=== PATIENT | female | born 2000 | race Caucasian/White ===

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

== ENCOUNTER 2021-01-09 10:33 | Outpatient (CLI) | payer MEDICAID, SELFPAY ==
[2021-01-09 20:20] LABS: Basophils Percent Auto 0.5 % (0.2-1.2); Eosinophils Percent Auto 0.7 % (0-4.4); Hematocrit 40.3 % (37.0-47.0); Hemoglobin 13.4 g/dL (12.0-15.0); Immature Platelet Fraction Pct 14.3 % (0.9-11.2); Lymphocytes Absolute Auto 2.04 K/mm3 (0.9-3.2); Lymphocytes Percent Auto 46.4 % (18.3-44.2); Mean Corpuscular HGB Conc 33.3 g/dl (32-36); Mean Corpuscular Hemoglobin 32.2 pg (26-34); Mean Corpuscular Volume 96.9 fl (80-100); Mean Platelet Volume 13.4 fl (7.4-10.4); Monocytes Absolute Auto 0.3 K/mm3 (0.1-0.6); Monocytes Percent Auto 6.1 % (2.6-8.5); Neutrophils Percent Auto 46.3 % (45.5-73.1); Platelet Count Result 130 k/mm3 (150-375); Red Blood Count 4.16 M/mm3 (4.2-5.4); Red Cell Distribution Width 13.5 % (11.5-14.5); White Blood Count 4.4 K/mm3 (4.5-10.0)
[2021-01-09 21:08] LABS: Alanine Aminotransferase 13 U/L (4-35); Albumin Level 5.6 g/dL (3.7-5.6); Alkaline Phosphatase 316 U/L (45-116); Aspartate Amino Transferase 32 U/L (14-36); Bilirubin,Total 0.3 mg/dL (0.2-1.3); Creatine Kinase 74 U/L (30-135)
== END 2021-01-09 10:34 | disposition home or self-care (01) ==
PROVIDERS: PCP Pediatrics; Visit Provider Pediatrics
DX: R74.01 Elevation of levels of liver transaminase levels (principal); R74.02 Elevation of levels of lactic acid dehydrogenase [LDH]
CPT/HCPCS: 36415; 80076; 82550; 85025; 85055; 85610

== ENCOUNTER → 2021-05-23 09:14 | Outpatient (CLI) | payer MEDICAID, SELFPAY ==
--- NOTE | ~2021-05-23 | US_ITS ---
EXAMINATION: US right upper quadrant DATE: 05/23/2021 09:42 INDICATION: Abnormal liver enzymes TECHNIQUE: Multiple grayscale and Doppler ultrasound images of the abdomen were obtained. COMPARISON: None available FINDINGS: The pancreas is poorly visualized due to bowel gas. The liver is normal with normal echogen icity and echotexture. No surface nodularity. Normal hepatopetal flow in the main portal vein. The ga llbladder is normal with no abnormal wall thickening, pericholecystic fluid or stones. The normal com mon bile duct measures 3 mm. There was no sonographic Lopes sign. IMPRESSION: 1. Normal sonographic study of the gallbladder. Reviewed, dictated and finalized at location A. TANNER
== END ==
PROVIDERS: PCP Nurse Practitioner; Visit Provider Pediatrics
DX: R74.01 Elevation of levels of liver transaminase levels (principal)
CPT/HCPCS: 76705

== ENCOUNTER 2021-07-15 19:30 | Emergency (ER) | payer MEDICAID, SELFPAY ==
[2021-07-15 19:37] VITALS: BP 105/50; PULSE 58; RESP 16; TEMP 35.7; O2SAT 98
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
--- NOTE | 2021-07-15 20:13 | PC.NURSE ---
Pts father assisted in catheterization through [facility]. 250mls urine collected.
[2021-07-15 20:31] LABS: Add Urine Microscopic? YES; Appearance Urine Cloudy (Clear); Bacteria Urine Trace /hpf; Bilirubin Urine Negative (Negative); Blood Urine Negative (Negative); Color Urine Yellow (Yellow); Glucose Urine UA Negative (Negative); Ketones Urine Negative (Negative); Leukocyte Esterase Ur 3+ LEU/UL (Negative); Nitrate Urine Negative (Negative); Protein Urine Negative (Negative); Specific Grav Ur 1.009 (1.001-1.035); Urobilinogen Urine Negative mg/dL (<2.0)
[2021-07-15] MEDS: CEPHALEXIN 500 MG CAPSULE PO (21:01)
== END 2021-07-15 21:12 | disposition home or self-care (01) ==
PROVIDERS: Emergency Provider Nurse Practitioner Family; PCP Nurse Practitioner
DX: N30.00 Acute cystitis without hematuria (principal); G80.9 Cerebral palsy, unspecified; N31.9 Neuromuscular dysfunction of bladder, unspecified; N18.4 Chronic kidney disease, stage 4 (severe); G40.909 Epilepsy, unspecified, not intractable, without status epilepticus; Z93.1 Gastrostomy status; Z93.6 Other artificial openings of urinary tract status; Z87.820 Personal history of traumatic brain injury
CPT/HCPCS: 81001; 99283; A9270

== ENCOUNTER 2021-08-24 12:20 | Outpatient (CLI) | payer MEDICAID, SELFPAY ==
[2021-08-24 19:15] LABS: Alanine Aminotransferase 146 U/L (6-35); Albumin Level 3.8 g/dL (3.7-5.6); Alkaline Phosphatase 114 U/L (45-116); Aspartate Amino Transferase 89 U/L (14-36); Bilirubin,Total 0.1 mg/dL (0.2-1.3)
== END 2021-08-24 12:21 | disposition home or self-care (01) ==
PROVIDERS: PCP Nurse Practitioner; Visit Provider Pediatrics
DX: Z87.440 Personal history of urinary (tract) infections (principal)
CPT/HCPCS: 36415; 80076; 87077; 87086; 87088; 87186

== ENCOUNTER 2022-01-15 15:01 | Outpatient (CLI) | payer MEDICAID, SELFPAY ==
[2022-01-15 19:04] LABS: Alanine Aminotransferase 77 U/L (6-35); Albumin Level 4.1 g/dL (3.5-5.1); Alkaline Phosphatase 124 U/L (38-126); Aspartate Amino Transferase 89 U/L (14-36); Bilirubin,Total 0.2 mg/dL (0.2-1.3)
== END 2022-01-15 15:02 | disposition home or self-care (01) ==
LOC: ANHASCLAB 15:02
PROVIDERS: PCP Nurse Practitioner; Visit Provider Pediatrics
DX: R74.8 Abnormal levels of other serum enzymes (principal)
CPT/HCPCS: 36415; 80076

== ENCOUNTER 2022-04-26 16:15 | Outpatient (CLI) | payer MEDICAID, SELFPAY ==
[2022-04-26 19:50] LABS: Basophils Percent Auto 0.4 % (0.2-1.2); Eosinophils Percent Auto 0.4 % (0-4.4); Hematocrit 36.1 % (37.0-47.0); Hemoglobin 12.3 g/dL (12.0-15.0); Lymphocytes Absolute Auto 1.54 K/mm3 (0.9-3.2); Lymphocytes Percent Auto 54.2 % (18.3-44.2); Mean Corpuscular HGB Conc 34.1 g/dl (32-36); Mean Corpuscular Hemoglobin 34.5 pg (26-34); Mean Corpuscular Volume 101.1 fl (80-100); Mean Platelet Volume 12.3 fl (7.4-10.4); Monocytes Absolute Auto 0.2 K/mm3 (0.1-0.6); Monocytes Percent Auto 6.3 % (2.6-8.5); Neutrophils Absolute Auto 1.1 K/mm3 (1.3-6.7); Neutrophils Percent Auto 38.7 % (45.5-73.1); Platelet Count Result 116 k/mm3 (150-375); Red Blood Count 3.57 M/mm3 (4.2-5.4); Red Cell Distribution Width 14.5 % (11.5-14.5); White Blood Count 2.8 K/mm3 (4.5-10.0)
[2022-04-26 20:34] LABS: Alanine Aminotransferase 71 U/L (6-35); Albumin Level 4.3 g/dL (3.5-5.1); Alkaline Phosphatase 114 U/L (38-126); Aspartate Amino Transferase 58 U/L (14-36); Bilirubin,Total 0.2 mg/dL (0.2-1.3)
== END 2022-04-26 16:16 | disposition home or self-care (01) ==
LOC: ANHGOSHLAB 16:17
PROVIDERS: PCP Nurse Practitioner; Visit Provider Pediatrics
DX: Q44.1 Other congenital malformations of gallbladder (principal)
CPT/HCPCS: 36415; 80076; 85025

== ENCOUNTER 2022-10-03 13:49 | Outpatient (CLI) | payer MEDICAID, SELFPAY ==
[2022-10-03 18:38] LABS: Anion Gap 5 mmol/L (8-16); Blood Urea Nitrogen 14 mg/dL (7-17); Calcium 8.9 mg/dL (8.4-10.2); Carbon Dioxide 33 mmol/L (22-30); Chloride 105 mmol/L (98-107); Estimated Glomerular Filt Rate > 60; Glucose 89 mg/dL (65-110); Phosphorus 4.7 mg/dL (2.5-4.5); Potassium 4.2 mmol/L (3.4-5.0); Sodium 143 mmol/L (137-145)
[2022-10-08 12:06] LABS: Reference Lab Test Result 0.91
== END 2022-10-03 13:50 | disposition home or self-care (01) ==
PROVIDERS: PCP Nurse Practitioner; Visit Provider Pediatrics Pediatric Nephrology
DX: N31.9 Neuromuscular dysfunction of bladder, unspecified (principal); R82.994 Hypercalciuria
CPT/HCPCS: 36415; 80069

== ENCOUNTER 2023-07-25 14:49 | Outpatient (CLI) | payer MEDICAID, SELFPAY ==
[2023-07-25 19:04] LABS: Basophils Percent Auto 0.3 % (0.2-1.2); Eosinophils Absolute Auto 0.1 K/mm3 (0-0.3); Eosinophils Percent Auto 1.5 % (0-4.4); Hematocrit 34.7 % (37.0-47.0); Hemoglobin 11.4 g/dL (12.0-15.0); Lymphocytes Absolute Auto 1.53 K/mm3 (0.9-3.2); Lymphocytes Percent Auto 46.5 % (18.3-44.2); Mean Corpuscular HGB Conc 32.9 g/dl (32-36); Mean Corpuscular Hemoglobin 32.4 pg (26-34); Mean Corpuscular Volume 98.6 fl (80-100); Mean Platelet Volume 12.1 fl (7.4-10.4); Monocytes Absolute Auto 0.3 K/mm3 (0.1-0.6); Monocytes Percent Auto 9.1 % (2.6-8.5); Neutrophils Absolute Auto 1.4 K/mm3 (1.3-6.7); Neutrophils Percent Auto 42.6 % (45.5-73.1); Platelet Count Result 178 k/mm3 (150-375); Red Blood Count 3.52 M/mm3 (4.2-5.4); Red Cell Distribution Width 17.5 % (11.5-14.5); White Blood Count 3.3 K/mm3 (4.5-10.0)
[2023-07-25 19:21] LABS: Alanine Aminotransferase 88 U/L (6-35); Albumin Level 4.2 g/dL (3.5-5.1); Alkaline Phosphatase 73 U/L (38-126); Anion Gap 6 mmol/L (4-12); Aspartate Amino Transferase 51 U/L (14-36); Bilirubin,Total 0.3 mg/dL (0.2-1.3); Blood Urea Nitrogen 18 mg/dL (7-17); Carbon Dioxide 30 mmol/L (22-30); Chloride 102 mmol/L (98-107); Estimated Glomerular Filt Rate > 60; Glucose 89 mg/dL (65-110); Potassium 3.9 mmol/L (3.4-5.0); Sodium 138 mmol/L (137-145)
== END 2023-07-25 14:50 | disposition home or self-care (01) ==
LOC: ANHASCLAB 14:54 → ANHGOSHLAB 15:24
PROVIDERS: PCP Nurse Practitioner; Visit Provider Pediatrics
DX: R68.89 Other general symptoms and signs (principal)
CPT/HCPCS: 36415; 80053; 85025

== ENCOUNTER 2025-02-17 10:19 | Outpatient (CLI) | payer MEDICAID, SELFPAY ==
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
--- OUTSIDE RECORDS SUMMARY | 2025-02-17 11:35 | XMS_ITS | Encounter Summary ---
Author Organization [facility] Health Address [address] [place] [address] Care Team Providers Care Ingot Stripper Name Role Phone Gina Alvarado MD Unavailable [phone] Michelle Nolan MD Unavailable Unavailable Michelle Nolan MD Unavailable Unavailable David Olson Unavailable Ann Valderrama DO Unavailable [phone] Juanita Mojica Primary Care Provider [phone] Encounter Details Date Type Department Care Team (Latest Contact Info) Description 02/17/2025 Travel Social History Tobacco Use Types Packs/Day Years [...] and heating? Not hard at all 08/12/2024 [facility] Occupat ional Health - Occupational Stress [...] place to sleep or slept in a senior care (including now)? No 08/04/2023 Housing Stability Vital Sign Answer Ryan e Recorded In the last 12 months, was t here a time when you were not able to pay the mortgage or rent on time? No 08/12/2024 In the past 12 months, how m any times have you moved where you were living? 0 08/12/2024 At any time in the past 12 m [facility], were you homeless or living in a senior care (including now)? No 08/12/2024 Comments No Sex and Gender Information Value Date Recorded Sex Assigned at Female 06/24/2023 7:12 PM CDT Legal Sex Female 5:41 AM TELEPHONE OPERATOR RECEPTIONIST Gender Identity Female 06/24/2023 7:12 PM CDT Sexual Orientation Not on file documented as of this encounter Functional Status * Is person deaf or have serious hearing difficulty? Answer Date of Assessment Author No 08/09/2024 6:38 AM CDT Dirk, Process Support User * Is person blind [...] Process Support User documented in this encounter Plan of Treatment Upcoming Encounters Date Type Department Care Team (Late st Contact Info) Description 02/25/2025 11:45 AM TELEPHONE OPERATOR RECEPTIONIST Appointment [facility] Pediatrics - [address] [place] [address] Gina Alvarado MD [address] [place] [id number] 01/24/2026 9:30 AM CDT Appointment [facility] Pediatrics - regional rehabilitation director [address] [place] [id number] Alie Gastelum MD [address] 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 07/29/2024 C Diff Hx Comment:01/07/23 05/21/2023 05/21/2023 documented as of this encounter Care Teams Ingot Stripper Relationship Specialty Start Date End Date Juanita Mojica [address] [place] [address] PCP - General Pediatrics 07/06/24 Gina Alvarado MD [address] [place] [id number] Pediatric Gastroenterology 04/13/19 Michelle Nolan MD [address] [place] [id number] Orthopedic Surgery 05/26/19 Michelle Nolan MD [address] [place] [id number] Orthopedic Surgery 02/03/20 David Olson PA [facility] [place] [phone] Physician Weight Loss Consultant Urology 05/07/24 Ann Valderrama DO [address] [place] [phone] Physician Hospice and Palliative Care 05/27/24 documented as of this encounter
--- OUTSIDE RECORDS SUMMARY | 2025-02-17 11:35 | XMS_ITS | Encounter Summary ---
Author Organization [facility] Address [address] [facility] [place] [address] Care Team Providers Care Canal Tender Name Role Phone Gina Alvarado MD Unavailable [phone] Michelle Nolan MD Unavailable Unavailable Michelle Nolan MD Unavailable Unavailable Jennifer Pelaez APRN-[facility] Primary Care Provi rahul David Olson Unavailable Ann Valderrama DO Unavailable [phone] Juanita Mojica Primary Care Provider Reason for Visit * Reason Onset Date Comments Durable Medical Equipment 06/26/2024 Insurance Issue/question 06/26/2024 Encounter Details Date Type Department Care Team (Late st Contact Info) Description 06/26/2024 [facility]phone [facility] Pulmonology [address] [place] [address] Val Santos MD [address] [place] [address] Durable Medical Equipment; Insurance Issue/question Social History Tobacco Use Types Packs/Day Years Used Date Smoking Tobacco: Never Passive Smoke Exposure: Never Smokeless Tobacco: Never Alcohol Use Standard Drinks/Week Comments No 0 (1 standard drink = 0.6 oz pur e alcohol) AUDIT-C Answer Date Recorded Q1: How often do you have a drink containing alcohol? Never 08/04/2023 Q2: How many drinks containi ng alcohol do you have on a typical day when you are drinking? Patient does not drink Q3: How often do you have si x or more drinks on one occasion? Never 08/04/2023 Overall Financial Resource Strain (CARDIA) Answe r Date Recorded How hard is it for you to pa y for the very basics like food, housing, medical care, and heating? Not hard at all 08/04/2023 [facility] of Occupat ional Health - Occupational Stress Questionnaire Answer Date Recorded Do you feel stress - tense, restless, nervous, or anxious, or unable to sleep at night because your mind is troubled all the time - these days? Not at all 08/04/2023 Hunger Vital Sign Answer Date Recorded Within the past 12 months, y ou worried that your food would run out before you got the money to buy more. Never true 08/04/19 24 Within the past 12 months, t he food you bought just didn't last and you didn't have money to get more. Never true 08/04/2023 PRAPARE - Transportation Answer Date Re corded In the past 12 months, has l ack of transportation kept you from medical appointments or from getting medications? No 07/08 In the past 12 months, has l ack of transportation kept you from meetings, work, or from getting things needed for daily living? No 08/04/2023 Housing Stability Vital Sign Answer [...] place to sleep or slept in a half-way (including now)? No 08/04/2023 Comments No Sex and Gender Information Value Date Recorded Sex Assigned at Female 06/24/2023 7:12 PM CDT Legal Sex Female 5:41 AM PHYSICAL SECURITY SPECIALIST Gender Identity Female 06/24/2023 7:12 PM CDT Sexual Orientation Not on file documented as of this encounter Functional Status * Is person deaf or have serious hearing difficulty? Answer Date of Assessment Author Yes 08/04/2023 11:53 AM CDT Kelsie Thomas RN * Is person blind or have serious difficulty seeing? Answer Date of Assessment Author Yes 08/04/2023 11:53 AM CDT Kelsie Thomas RN * Does person have serious difficulty walking/climbing stairs? Answer Date of Assessment Author Yes 08/04/2023 11:53 AM CDT Kelsie Thomas RN * Does person have difficulty dressing/bathing? Answer Date of Assessment Author Yes 08/04/2023 11:53 AM CDT Kelsie Thomas RN * Does person have difficulty doing errands alone? Answer Date of Assessment Author Yes 08/04/2023 11:53 AM JUSTINET Kelsie Thomas RN documented as of this encounter Mental Status * Does person have difficulty concentrating/remembering/making decisions? Answer Entry Date Author Yes 08/04/2023 11:53 AM Kelsie Vazquez RN documented in this encounter Miscellaneous Notes * Telephone Encounter - Elizabeth Whitney RN - 06/26/2024 4:25 PM CDT [facility] called to report that last note sent to support recert for oxygen is inadequate, only describes occassional transient desaturations. Suggests sending a letter from physician to support. Will notify MD. documented in this encounter Plan of Treatment Upcoming Encounters Date Type Department Care Team (Late st Contact Info) Description 02/25/2025 11:45 AM PHYSICAL SECURITY SPECIALIST Appointment [facility] Pediatrics - [place] [address] [place] [address] Gina Alvarado MD [address] [place] [address] 01/24/2026 9:30 AM CDT Appointment [facility] Pediatrics - hand fur cleaner [address] [facility] 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 05/30/2022 05/30/2022 MRSA 10/08/2022 07/29/2024 C Diff Hx Comment:01/07/23 05/21/2023 05/21/2023 CDIFF Under Investigation 08/09/2024 08/09/2024 8:35 AM CDT documented as of this encounter Care Teams Canal Tender Relationship Specialty Start Date End Date Jennifer Pelaez, HOME HEALTH CNA-TUNNEL FORM PLACING SUPERVISOR [address] [place] [address] PCP - General 05/17/21 07/05/24 Juanita Mojica [address] [place] [address] PCP - General Pediatrics 07/06/24 Gina Alvarado MD [address] [place] [id number] Pediatric Gastroenterology 04/13/19 Michelle Nolan MD [address] [place] [address] Orthopedic Surgery 05/26/19 Michelle Nolan MD [address] [place] [address] Orthopedic Surgery 02/03/20 David Olson PA [address] [place] [phone] Physician School Cafeteria Cook Head Urology 05/07/24 Ann Valderrama DO [address] [place] [phone] Physician Hospice and Palliative Care 05/27/24 documented as of this encounter
--- OUTSIDE RECORDS SUMMARY | 2025-02-17 11:35 | XMS_ITS | Encounter Summary ---
Author Organization [facility] Address [address] [place] [address] Care Team Providers Care Vice President Of Operations Name Role Phone Gina Alvarado MD Unavailable [phone] Michelle Nolan MD Unavailable Unavailable Michelle Nolan MD Unavailable Unavailable Jennifer Pelaez APRN-ATOMIC PHYSICS TEACHER Primary Care Provi rahul David Olson Unavailable Ann Valderrama DO Unavailable [phone] Juanita Mojica Primary Care Provider Encounter Details Date Type Department Care Team (Late st Contact Info) Description 06/21/2022 Testing Visit [facility] - Neurology [address] [place] [address] Dipesh Agudelo MD [address] [place], [place] [id number] Social History Tobacco Use Types Packs/Day Years Used Date Smoking Tobacco: Never Passive Smoke Exposure: Never Smokeless Tobacco: Never Alcohol Use Standard Drinks/Week Comments No 0 (1 standard drink = 0.6 oz pur e alcohol) AUDIT-C Answer Date Recorded Q1: How often do you have a drink containing alcohol? Never 05/26/2022 Q2: How many drinks containi ng alcohol do you have on a typical day when you are drinking? Patient does not drink Q3: How often do you have si x or more drinks on one occasion? Never 05/26/2022 Overall Financial Resource Strain (CARDIA) Answe r Date Recorded How hard is it for you to pa y for the very basics like food, housing, medical care, and heating? Not hard at all 05/26/2022 [facility] of Occupat ional Health - Occupational Stress Questionnaire Answer Date Recorded Do you feel stress - tense, restless, nervous, or anxious, or unable to sleep at night because your mind is troubled all the time - these days? Not at all 05/26/2022 Hunger Vital Sign Answer Date Recorded Within the past 12 months, y ou worried that your food would run out before you got the money to buy more. Never true 05/26/19 23 Within the past 12 months, t he food you bought just didn't last and you didn't have money to get more. Never true 05/26/2022 PRAPARE - Transportation Answer Date Re corded In the past 12 months, has l ack of transportation kept you from medical appointments or from getting medications? No 05/09 In the past 12 months, has l ack of transportation kept you from meetings, work, or from getting things needed for daily living? No 05/26/2022 Housing Stability Vital Sign Answer Ryan e Recorded In the last 12 months, was t here a time when you were not able to pay the mortgage or rent on time? No 05/26/2022 In the last 12 months, how many places have you lived? 1 05/26/2022 In the last 12 months, was t here a time when you did not have a steady place to sleep or slept in a intermediate (including now)? No 05/26/2022 Comments No Sex and Gender Information Value Date Recorded Sex Assigned at Female 06/24/2023 7:12 PM CDT Legal Sex Female 5:41 AM HYDRAULICS ENGINEER Gender Identity Female 06/24/2023 7:12 PM CDT Sexual Orientation Not on file COVID-19 Exposure Response Date Recorded In the last 10 days, have yo u been in contact with someone who was confirmed or suspected to have Coronavirus/COVID-19? No / Unsure 06/18/2022 11:03 AM CDT documented as of this encounter Functional Status * Is person deaf or have serious hearing difficulty? Answer Date of Assessment Author No 05/20/2022 8:45 PM Valerie Dumont RN * Is person blind or have serious difficulty seeing? Answer Date of Assessment Author No 05/20/2022 8:45 PM Valerie Dumont RN * Does person have serious difficulty walking/climbing stairs? Answer Date of Assessment Author Yes 05/20/2022 8:45 PM Valerie Dumont RN * Does person have difficulty dressing/bathing? Answer Date of Assessment Author Yes 05/20/2022 8:45 PM Valerie Dumont RN * Does person have difficulty doing errands alone? Answer Date of Assessment Author Yes 05/20/2022 8:45 PM Valerie Dumont RN documented as of this encounter Mental Status * Does person have difficulty concentrating/remembering/making decisions? Answer Entry Date Author Yes 05/20/2022 8:45 PM Valerie Dumont RN documented in this encounter Plan of Treatment Upcoming Encounters Date Type Department Care Team (Late st Contact Info) Description 02/25/2025 11:45 AM HYDRAULICS ENGINEER Appointment [facility] - [facility] [place] [address] Gina Alvarado MD [facility] [place] [address] 01/24/2026 9:30 AM CDT Appointment [facility] - director of business services [address] [place] [address] Alie Gastelum MD [address] [facility] [address] [place] [phone] 02/07/2026 11:00 AM HYDRAULICS ENGINEER Office Visit [facility] - Urology [address] [facility], [place] [phone] David Olson PA [address] [place] [phone] documented as of this encounter Visit Diagnoses Not on filedocumented in this encounter Additional Health Concerns Infection Onset Date Last Indicated Resolved Time 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 10/14/2020 10/14/2020 01/07/2023 9:14 AM 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 05/20/2022 09/06/2022 11:0 2 AM CDT 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 05/30/2022 05/30/2022 COVID-19 Under Investigation 07/12/2022 07/12/2022 07/12/2022 7:09 PM CDT COVID-19 Under Investigation 07/12/2022 07/13/2022 07/13/2022 5:07 AM CDT COVID-19 Under Investigation 08/01/2022 08/01/2022 08/01/2022 6:55 PM CDT COVID-19 Under Investigation 09/01/2022 09/01/2022 09/01/2022 3:27 PM CDT CDIFF Under Investigation 09/04/2022 09/04/2022 11:02 AM CDT MRSA Hx Comment:05/2022 urine 09/06/2022 09/06/2022 01/04/2023 9:16 AM CDT COVID-19 Under Investigation 09/26/2022 09/26/2022 09/27/2022 2:53 AM CDT COVID-19 Under Investigation 10/08/2022 10/08/2022 10/09/2022 12:16 AM CDT MRSA 10/08/2022 07/29/2024 COVID-19 Under Investigation 10/09/2022 10/09/2022 10/09/2022 4:16 PM CDT COVID-19 Under Investigation 01/02/2023 01/02/2023 01/02/2023 11:11 PM CDT CDIFF Under Investigation 01/06/2023 01/07/2023 9:14 AM CDT C DIFF 01/07/2023 01/07/2023 05/21/2023 11:2 5 AM HYDRAULICS ENGINEER COVID-19 Under Investigation 01/10/2023 01/10/202301/1001/10/2023 2:33 PM CDT COVID-19 Under Investigation 02/01/2023 02/01/2023 02/02/2023 2:34 AM CDT CDIFF Under Investigation 02/01/2023 02/01/2023 10:50 PM CDT CDIFF Under Investigation Comment:Negative 02/03/23 02/03/2023 02/03/2023 02/05/2023 10: 45 AM CDT COVID-19 Under Investigation 03/04/2023 03/04/2023 03/04/2023 5:49 PM HYDRAULICS ENGINEER COVID-19 Under Investigation 05/20/2023 05/20/2023 05/20/2023 7:59 PM HYDRAULICS ENGINEER C Diff Hx Comment:01/07/23 05/21/2023 05/21/2023 COVID-19 Under Investigation 05/25/2023 05/25/2023 05/25/2023 8:48 AM HYDRAULICS ENGINEER CDIFF Under Investigation 06/09/2023 06/09/2023 9:47 AM CDT COVID-19 Under Investigation 07/14/2023 07/14/2023 07/14/2023 6:42 PM CDT COVID-19 Under Investigation 08/04/2023 08/04/2023 08/04/2023 3:39 PM CDT CDIFF Under Investigation 08/09/2024 08/09/2024 8:35 AM CDT documented as of this encounter Care Teams Vice President Of Operations Relationship Specialty Start Date End Date Jennifer Pelaez APRN-ATOMIC PHYSICS TEACHER [address] [place] [address] PCP - General 05/17/21 07/05/24 Juanita Mojica [address] [place] [address] PCP - General Pediatrics 07/06/24 Gina Alvarado MD [address] [place] [address] Pediatric Gastroenterology 04/13/19 [place] [address] [place] [address] Orthopedic Surgery 05/26/19 Michelle Nolan MD [address] [place] [address] Orthopedic Surgery 02/03/20 David Olson PA [address] [place] [phone] Physician Yard Pipe Grader Urology 05/07/24 Ann Valderrama DO [address] [place] [address] Physician Hospice and Palliative Care 05/27/24 documented as of this encounter
--- OUTSIDE RECORDS SUMMARY | 2025-02-17 11:35 | XMS_ITS | Encounter Summary ---
Author Organization [facility] Address [address] [facility] [place] [address] Care Team Providers Care Charter Boat Captain Name Role Phone Gina Alvarado MD Unavailable [phone] Michelle Nolan MD Unavailable Unavailable Michelle Nolan MD Unavailable Unavailable Jennifer Pelaez [facility] Primary Care Provi rahul David Olson Unavailable Ann Valderrama DO Unavailable [phone] Juanita Mojica Primary Care Provider Reason for Visit * Reason Onset Date Comments MEDICATION REFILL 12/28/2021 Encounter Details Date Type Department Care Team (Late st Contact Info) Description 12/28/2021 Refill [facility] - [address] [place] [address] Gina Alvarado MD [address] [place] [address] MEDICATION REFILL Social History Tobacco Use Types Packs/Day Years Used Date Smoking Tobacco: Never Smokeless Tobacco: Never Alcohol Use Standard Drinks/Week Comments No 0 (1 standard drink = 0.6 oz pur e alcohol) AUDIT-C Answer Date Recorded Q1: How often do you have a drink containing alc ohol? Never 04/05/2021 Average Number of Drinks Not on file 021 Q3: How often do you have si x or more drinks on one occasion? Never 04/05/2021 Comments No Sex and Gender Information Value Date Recorded Sex Assigned at Female 06/24/2023 7:12 PM CDT Legal Sex Female 5:41 AM ZIPPER TRIMMER HAND Gender Identity Female 06/24/2023 7:12 PM CDT Sexual Orientation Not on file COVID-19 Exposure Response Date Recorded In the last 10 days, have yo u been in contact with someone who was confirmed or suspected to have Coronavirus/COVID-19? No / Unsure 12/05/2021 3:25 PM CDT documented as of this encounter Functional Status * Is person deaf or have serious hearing difficulty? Answer Date of Assessment Author No 10/25/2020 8:31 PM CDT Nilton Youngblood RN * Is person blind or have serious difficulty seeing? Answer Date of Assessment Author No 10/25/2020 8:31 PM CDT Nilton Youngblood RN * Does person have serious difficulty walking/climbing stairs? Answer Date of Assessment Author Yes 10/25/2020 8:31 PM CDT Nilton Youngblood RN * Does person have difficulty dressing/bathing? Answer Date of Assessment Author Yes 10/25/2020 8:31 PM CDT Nilton Youngblood RN * Does person have difficulty doing errands alone? Answer Date of Assessment Author Yes 10/25/2020 8:31 PM CDT Liliana Youngblood RN documented as of this encounter Mental Status * Does person have difficulty concentrating/remembering/making decisions? Answer Entry Date Author Yes 10/25/2020 8:31 PM CDT Nilton Youngblood RN documented in this encounter Miscellaneous Notes * Telephone Encounter - Darleen Stearns RN - 01/16/2022 8:49 AM CDT Scheduled metabolic cart with respiratory for 03/29. Notified mom of appointment also reviewed thatprovider would like liver US done and labs on the same day. Transferred mom over to imaging to schedule ultrasound. Mom understood and had no further questions. Pended metabolic cart order. Will send to the provider to sign. * Telephone Encounter - Gina Alvarado MD - 01/15/2022 2:42 PM CDT Could we get a metabolic cart on Donna when she is at [facility] on 03/29? Curious to see what her energy needs are Would also like to get liver US (order already in) and labs on that date. * Telephone Encounter - Jessica Morales RN - 12/29/2021 8:15 AM CDT Refill request for patients Senna, pended order and will route to MD for approval if appropriate documented in this encounter Plan of Treatment Upcoming Encounters Date Type Department Care Team (Late st Contact Info) Description 02/25/2025 11:45 AM ZIPPER TRIMMER HAND Appointment [facility] - [place] [address] [facility] [place] [address] Gina Alvarado MD [address] [place] [address] 01/24/2026 9:30 AM CDT Appointment [facility] - button sewer hand [address] [facility] [place] [address] Alie Gastelum MD [address] [facility] [address] [place] [phone] 02/07/2026 11:00 AM ZIPPER TRIMMER HAND Office Visit [facility] - Urology [address] [facility], [place] [address] David Olson PA [address] [place] [phone] documented as of this encounter Procedures Procedure Name Priority Date/Time Associated Diagnosis Comments ALT Routine 02/28/2022 2:55 PM ZIPPER TRIMMER HAND Elevated liver enzymes AST BLOOD Routine 02/28/2022 2:55 PM ZIPPER TRIMMER HAND Elevated liver enzymes PROTEIN TOTAL BLOOD Routine 02/28/2022 2 :55 PM ZIPPER TRIMMER HAND Elevated liver enzymes BILIRUBIN TOTAL+DIRECT BLOOD PANEL Routine 02/28/2022 2:55 PM ZIPPER TRIMMER HAND Elevated liver enzymes ALKALINE PHOSPHATASE BLOOD Routine 02/28/2022 2:55 PM ZIPPER TRIMMER HAND Elevated liver enzymes documented in this encounter Results * (ABNORMAL) ALT (02/28/2022 2:55 PM ZIPPER TRIMMER HAND) ALT 78(H) 5 - 55 U/L 02/28/2022 4:15 PM ZIPPER TRIMMER HAND [facility] Blood BLOOD SPECIMEN / Unknown Lab Venipuncture / Unknown 02/28/2022 2:55 PM ZIPPER TRIMMER HAND 02/28/2022 3:41 PM ZIPPER TRIMMER HAND Gina Alvarado MD LAB - CHEMISTRY ORDERABLES Fin al Result Performing Organization Address City/[facility]/ZIP Co de Phone Number [address] [address], [place] [phone] * (ABNORMAL) AST BLOOD (02/28/2022 2:55 PM ZIPPER TRIMMER HAND) AST 40(H) 5 - 34 U/L 02/28/2022 4:15 PM ZIPPER TRIMMER HAND [facility] Blood BLOOD SPECIMEN / Unknown Lab Venipuncture / Unknown 02/28/2022 2:55 PM ZIPPER TRIMMER HAND 02/28/2022 3:41 PM ZIPPER TRIMMER HAND us Gina Alvarado MD LAB - CHEMISTRY ORDERABLES Fin al Result Performing Organization Address City/[facility]/ZIP Co de Phone Number [address] [address], [place] [phone] * PROTEIN TOTAL BLOOD (02/28/2022 2:55 PM ZIPPER TRIMMER HAND) Pathologist [facility] Protein Total 7.4 6.0 - 8.3 g/dL 02/28/2022 4:15 PM ZIPPER TRIMMER HAND [facility] Blood BLOOD SPECIMEN / Unknown Lab Venipuncture / Unknown 02/28/2022 2:55 PM ZIPPER TRIMMER HAND 02/28/2022 3:41 PM ZIPPER TRIMMER HAND Gina Alvarado MD LAB - CHEMISTRY ORDERABLES Fin al Result [facility] [address] [place] [address], [place] [phone] * BILIRUBIN TOTAL+DIRECT BLOOD PANEL (02/28/2022 2:55 PM ZIPPER TRIMMER HAND) [facility] Bilirubin Total 0.4 0.2 - 1.2 mg/dL 02/07 4:15 PM ZIPPER TRIMMER HAND [facility] Bilirubin Conjugated 0.2 0.1 - 0.5 mg/dL 02/28/2022 4:15 PM [facility] Bilirubin Unconjugated 0.2 Unconjugated Bilirubin is a calculated value: Reference ranges have not been established. mg/dL 02/28/2022 4:15 PM ZIPPER TRIMMER HAND [facility] Blood BLOOD SPECIMEN / Unknown Lab Venipuncture / Unknown 02/28/2022 2:55 PM ZIPPER TRIMMER HAND 02/28/2022 3:41 PM ZIPPER TRIMMER HAND Gina Alvarado MD LAB - CHEMISTRY ORDERABLES Fin al Result [facility] [address] [place] [address], [place] [phone] * ALKALINE PHOSPHATASE BLOOD (02/28/2022 2:55 PM ZIPPER TRIMMER HAND) Pathologist [facility] Alkaline Phosphatase 135 40 - 150 U/L 02/28/2022 4:15 PM ZIPPER TRIMMER HAND [facility] Blood BLOOD SPECIMEN / Unknown Lab Venipuncture / Unknown 02/28/2022 2:55 PM ZIPPER TRIMMER HAND 02/28/2022 3:41 PM ZIPPER TRIMMER HAND us Gina Alvarado MD LAB - CHEMISTRY ORDERABLES Fin al Result [address] [address], [facility] [phone] documented in this encounter Visit Diagnoses Diagnosis Elevated liver enzymes- Primary Nonspecific elevation of levels of transaminase or lactic acid dehydrogenase (LDH) Constipation, unspecified constipation type documented in this encounter Additional Health Concerns Infection Onset Date Last Indicated Resolved Time 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 10/14/2020 10/14/2020 01/07/2023 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 04/05/2021 05/30/2022 3:49 PM ZIPPER TRIMMER HAND MRSA 09/18/2021 05/20/2022 09/06/2022 11:0 2 AM CDT COVID-19 Under Investigation 05/20/2022 05/20/2022 05/20/2022 11:47 PM ZIPPER TRIMMER HAND 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 05/30/2022 05/30/2022 COVID-19 Under [...] DIFF 01/07/2023 01/07/2023 05/21/2023 11:2 5 AM ZIPPER TRIMMER HAND COVID-19 Under Investigation 01/10/2023 01/10/2023 01/10/2023 2:33 PM CDT COVID-19 Under Investigation 02/01/2023 02/01/2023 02/02/2023 2:34 AM CDT CDIFF Under Investigation 02/01/2023 02/01/2023 10:50 PM CDT CDIFF Under Investigation Comment:Negative 02/03/23 02/03/2023 02/03/2023 02/05/2023 10: 45 AM CDT COVID-19 Under Investigation 03/04/2023 03/04/2023 03/04/2023 5:49 PM ZIPPER TRIMMER HAND COVID-19 Under Investigation 05/20/2023 05/20/2023 05/20/2023 7:59 PM ZIPPER TRIMMER HAND C Diff Hx Comment:01/07/23 05/21/2023 05/21/2023 COVID-19 Under Investigation 05/25/2023 05/25/2023 05/25/2023 8:48 AM ZIPPER TRIMMER HAND CDIFF Under Investigation 06/09/2023 06/09/2023 9:47 AM CDT COVID-19 Under Investigation 07/14/2023 07/14/2023 07/14/2023 6:42 PM CDT COVID-19 Under Investigation 08/04/2023 08/04/2023 08/04/2023 3:39 PM CDT CDIFF Under Investigation 08/09/2024 08/09/2024 8:35 AM CDT documented as of this encounter Care Teams Charter Boat Captain Relationship Specialty Start Date End Date Jennifer Pelaez, DIRECTOR OF LABOR RELATIONS-ENVIRONMENTAL HEALTH TECHNICIAN [address] [place] [address] PCP - General 05/17/21 07/05/24 Juanita Mojica [address] [facility] [address] [facility] [place] [address] PCP - General Pediatrics 07/06/24 Gina Alvarado MD [address] [place] [address] Pediatric Gastroenterology 04/13/19 Michelle Nolan MD [address] [place] [address] Orthopedic Surgery 05/26/19 Michelle Nolan MD [address] [place] [address] Orthopedic Surgery 02/03/20 David Olson PA [address] [place] [phone] Physician Grader Green Meat Urology 05/07/24 Ann Valderrama DO [address] [place] [phone] Physician Hospice and Palliative Care 05/27/24 documented as of this encounter
--- OUTSIDE RECORDS SUMMARY | 2025-02-17 11:35 | XMS_ITS | Encounter Summary ---
Author Organization [facility] Address [address] [place] [address] Care Team Providers Care Medicine Assistant Name Role Phone Gina Alvarado MD Unavailable [phone] Michelle Nolan MD Unavailable Unavailable Michelle Nolan MD Unavailable Unavailable David Olson Unavailable Ann Valderrama DO Unavailable [phone] Juanita Mojica Primary Care Provider [phone] Encounter Details Date Type Department Care Team (Latest Contact Info) Description 02/16/2025 Travel Social History Tobacco Use Types Packs/Day [...] and heating? Not hard at all 08/12/2024 [facility] [place] of Occupat ional Health - Occupational Stress [...] place to sleep or slept in a detention (including now)? No 08/04/2023 Housing Stability Vital Sign Answer Ryan e Recorded In the last 12 months, was t here a time when you were not able to pay the mortgage or rent on time? No 08/12/2024 In the past 12 months, how m any times have you moved where you were living? 0 08/12/2024 At any time in the past 12 m [facility], were you homeless or living in a detention (including now)? No 08/12/2024 Comments No Sex and Gender Information Value Date Recorded Sex Assigned at Female 06/24/2023 7:12 PM CDT Legal Sex Female 5:41 AM AUTOMOBILE CONTRACT CLERK Gender Identity Female 06/24/2023 7:12 PM CDT [...] st Contact Info) Description 02/25/2025 11:45 AM AUTOMOBILE CONTRACT CLERK Appointment [facility] - [address] [place] [address] Gina Alvarado MD [address] [place] [address] 01/24/2026 9:30 AM CDT Appointment [facility] - supervisor plate forming [address] [place] [address] Alie Gastelum MD [address] [facility] [address] [place] [phone] 02/07/2026 11:00 AM AUTOMOBILE CONTRACT CLERK Office Visit [facility] - Urology [address] [facility], [place] [address] David Olson PA [address] [place] [phone] documented as of this encounter Visit Diagnoses Not on filedocumented in this encounter Additional Health Concerns Infection Onset Date Last Indicated Resolved Time 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 05/30/2022 05/30/2022 MRSA 10/08/2022 07/29/2024 C Diff Hx Comment:01/07/23 05/21/2023 05/21/2023 documented as of this encounter Care Teams Medicine Assistant Relationship Specialty Start Date End Date Juanita Mojica [address] [place] [address] PCP - General Pediatrics 07/06/24 Gina Alvarado MD [address] [place] [address] Pediatric Gastroenterology 04/13/19 Michelle Nolan MD [address] [place] [address] Orthopedic Surgery 05/26/19 Michelle Nolan MD [address] [place] [address] Orthopedic Surgery 02/03/20 David Olson PA [facility] [place] [phone] Physician Drug Safety Specialist Urology 05/07/24 Ann Valderrama DO [address] [place] [phone] Physician Hospice and Palliative Care 05/27/24 documented as of this encounter
--- OUTSIDE RECORDS SUMMARY | 2025-02-17 11:35 | XMS_ITS | Encounter Summary ---
Author Organization [facility] Address [address] [place] [address] Care Team Providers Care Launch Operator Name Role Phone Michael Linares MD Primary Care Provider [phone] Gina Alvarado MD Unavailable [phone] Michelle Nolan MD Unavailable Unavailable Michelle Nolan MD Unavailable Unavailable [facility] Primary Care Provi rahul Michael Linares MD Primary Care Provider + [facility] Primary Care Provi rahul David Olson Unavailable Ann Valderrama DO Unavailable [phone] Juanita Mojica Primary Care Provider [phone] Reason for Visit * Reason Onset Date Comments Appointment 11/23/2020 Encounter Details Date Type Department Care Team (Late st Contact Info) Description 11/23/2020 Telephone [facility] - [address] [place] [address] Janice España SCALE ASSEMBLY SET UP WORKER-SENIOR ADULTS DIRECTOR [address] [place] [address] Appointment Social History Tobacco Use Types Packs/Day Years Used Date Smoking Tobacco: Never Smokeless Tobacco: Never Alcohol Use Standard Drinks/Week Comments No 0 (1 standard drink = 0.6 oz pur e alcohol) Comments No Sex and Gender Information Value Date Recorded Sex Assigned at Female 06/24/2023 7:12 PM CDT Legal Sex Female 5:41 AM PHYSICIAN PRACTICE MARKET MANAGER Gender Identity Female 06/24/2023 7:12 PM CDT Sexual Orientation Not on file COVID-19 Exposure Response Date Recorded In the last month, have you been in contact with someone who was confirmed or suspected to have Coronavirus / COVID-19? No / Unsure 11/23/2020 2:34 PM CDT documented as of this encounter [...] 8:31 PM CDT Nilton Youngblood RN documented as of this encounter Mental Status * Does person have difficulty concentrating/remembering/making decisions? Answer Entry Date Author Yes 10/25/2020 8:31 PM CDT Nilton Youngblood RN documented in this encounter Miscellaneous Notes * Telephone Encounter - Addie Jade - 11/23/2020 2:37 PM CDT Mom left message to schedule patient's appt. documented in this encounter Plan of Treatment Upcoming Encounters Date Type Department Care Team (Late st Contact Info) Description 02/25/2025 11:45 AM PHYSICIAN PRACTICE MARKET MANAGER Appointment [facility] [place] [address] [facility] [place] [address] Gina Alvarado MD [address] [place] [address] 01/24/2026 9:30 AM CDT Appointment [facility] Pediatrics - real estate processor [address] [place] [address] Alie Gastelum MD [address] [facility] [address] [place] [phone] 02/07/2026 11:00 AM PHYSICIAN PRACTICE MARKET MANAGER Office Visit [facility] - Urology [address] [facility] [place] [address] David Olson PA [address] [place] [phone] documented as of this encounter Visit Diagnoses Not on filedocumented in this encounter Additional Health Concerns Infection Onset Date Last Indicated Resolved Time 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 10/14/2020 10/14/2020 01/07/2023 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 04/05/2021 05/30/2022 3:49 PM PHYSICIAN PRACTICE MARKET MANAGER MRSA 09/18/2021 05/20/2022 09/06/2022 11:0 2 AM CDT COVID-19 Under Investigation 05/20/2022 05/20/2022 05/20/2022 11:47 PM PHYSICIAN PRACTICE MARKET MANAGER 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 05/30/2022 05/30/2022 COVID-19 Under [...] DIFF 01/07/2023 01/07/2023 05/21/2023 11:2 5 AM PHYSICIAN PRACTICE MARKET MANAGER COVID-19 Under Investigation 01/10/2023 01/10/2023 01/10/2023 2:33 PM CDT COVID-19 Under Investigation 02/01/2023 02/01/2023 02/02/2023 2:34 AM CDT CDIFF Under Investigation 02/01/2023 02/01/2023 10:50 PM CDT CDIFF Under Investigation Comment:Negative 02/03/23 02/03/2023 02/03/2023 02/05/2023 10: 45 AM CDT COVID-19 Under Investigation 03/04/2023 03/04/2023 03/04/2023 5:49 PM PHYSICIAN PRACTICE MARKET MANAGER COVID-19 Under Investigation 05/20/2023 05/20/2023 05/20/2023 7:59 PM PHYSICIAN PRACTICE MARKET MANAGER C Diff Hx Comment:01/07/23 05/21/2023 05/21/2023 COVID-19 Under Investigation 05/25/2023 05/25/2023 05/25/2023 8:48 AM PHYSICIAN PRACTICE MARKET MANAGER CDIFF Under Investigation 06/09/2023 06/09/2023 9:47 AM CDT COVID-19 Under Investigation 07/14/2023 07/14/2023 07/14/2023 6:42 PM CDT COVID-19 Under Investigation 08/04/2023 08/04/2023 08/04/2023 3:39 PM CDT CDIFF Under Investigation 08/09/2024 08/09/2024 8:35 AM CDT documented as of this encounter Care Teams Launch Operator Relationship Specialty Start Date End Date Michael Linares MD [address] [place] [address] PCP - General 05/20/09 04/04/21 Jennifer Pelaez APRN-SENIOR ADULTS DIRECTOR [address] [place] [id number] PCP - General Nurse Practitioner 04/05/21 04/05/21 Michael Linares MD [address] [place] [address] PCP - General 04/06/21 05/16/21 Jennifer Pelaez APRN-SENIOR ADULTS DIRECTOR [address] [place] [id number] PCP - General 05/17/21 07/05/24 Juanita Mojica [address] [place] [address] [facility] [place], [place] [id number] PCP - General Pediatrics 07/06/24 Gina Alvarado MD [address] [place] [id number] Pediatric Gastroenterology 04/13/19 Michelle Nolan MD [address] [place] [address] Orthopedic Surgery 05/26/19 Michelle Nolan MD [address] [place] [address] Orthopedic Surgery 02/03/20 David Olson PA [address] [place] [address] Physician Instrument Specialist Urology 05/07/24 Ann Valderrama DO [address] [place] [address] Physician Hospice and Palliative Care 05/27/24 documented as of this encounter
--- OUTSIDE RECORDS SUMMARY | 2025-02-17 11:35 | XMS_ITS | Encounter Summary ---
Author Organization [facility] Address [address] [place] [address] Care Team Providers Care Floor Refinisher Name Role Phone Gina Alvarado MD Unavailable [phone] Michelle Nolan MD Unavailable Unavailable Michelle Nolan MD Unavailable Unavailable David Olson Unavailable Ann Valderrama DO Unavailable [phone] Juanita Mojica Primary Care Provider [phone] Encounter Details Date Type Department Care Team (Late st Contact Info) Description 01/04/2025 Results Follow-Up [facility] Pediatrics - Neurology [address] [place] [address] David Olson PA [address] [place] [address] Social History Tobacco Use Types Packs/Day Years [...] and heating? Not hard at all 08/12/2024 [facility] [place] of Occupat ional Health - Occupational Stress [...] place to sleep or slept in a jail (including now)? No 08/04/2023 Housing Stability Vital Sign Answer Ryan e Recorded In the last 12 months, was t here a time when you were not able to pay the mortgage or rent on time? No 08/12/2024 In the past 12 months, how m any times have you moved where you were living? 0 08/12/2024 At any time in the past 12 m [facility], were you homeless or living in a jail (including now)? No 08/12/2024 Comments No Sex and Gender Information Value Date Recorded Sex Assigned at Female 06/24/2023 7:12 PM CDT Legal Sex Female 5:41 AM ROOFING MACHINE TENDER Gender Identity Female 06/24/2023 7:12 PM CDT [...] documented in this encounter Progress Notes * David Olson PA - 01/04/2025 3:45 PM CDT Thanks for the update Dr. Agudelo, I sent her antibiotics. documented in this encounter Plan of Treatment Upcoming Encounters Date Type Department Care Team (Late st Contact Info) Description 02/25/2025 11:45 AM ROOFING MACHINE TENDER Appointment [facility] [place] [address] [facility] [place] [address] Gina Alvarado MD [address] [place] [address] 01/24/2026 9:30 AM CDT Appointment [facility] Pediatrics - reinforced steel placing supervisor [facility] [facility] 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 05/30/2022 05/30/2022 MRSA 10/08/2022 07/29/2024 C Diff Hx Comment:01/07/23 05/21/2023 05/21/2023 documented as of this encounter Care Teams Floor Refinisher Relationship Specialty Start Date End Date Juanita Mojica [address] [place] [address] PCP - General Pediatrics 07/06/24 Gina Alvarado MD [address] [place] [address] Pediatric Gastroenterology 04/13/19 Michelle Nolan MD [address] [place] [address] Orthopedic Surgery 05/26/19 Michelle Nolan MD [address] [place] [address] Orthopedic Surgery 02/03/20 David Olson PA [facility] [place] [address] Physician Repair Armature Winder Helper Urology 05/07/24 Ann Valderrama DO [address] [place] [phone] Physician Hospice and Palliative Care 05/27/24 documented as of this encounter
--- OUTSIDE RECORDS SUMMARY | 2025-02-17 11:36 | XMS_ITS | Clinical Summary ---
Author Organization [facility] Address [address] [place] [address] Care Team Providers Care Applications Systems Analyst Name Role Phone Gina Alvarado MD Unavailable [phone] Michelle Nolan MD Unavailable Unavailable Michelle Nolan MD Unavailable Unavailable David Olson Unavailable Ann Valderrama DO Unavailable [phone] Juanita Mojica Primary Care Provider [phone] Source Comments [facility],non-owned Affiliates and Associated Physician Practices is amultiple site organization consisting of ambulatory clinics and hospital sitesin [place], [place], [place] and [place]. This disclosure is being madepursuant to the Care Everywhere program and may not contain all information available regarding this patient. Last updated 17.[facility] Allergies Active Allergy Reactions Criticality Noted Date Comments Adhesive Sensitivity Rash Medium 10/01/2016 tegaderm is okay Vancomycin Renal Injury High 02/01/2023 Medications * This document contains information received from the source organization and may not represent a complete record from that organization. * Be aware that medications may not be up to date on this document. Alwaysverify current medications with the patient. Calcium Carbonate Antacid (CALCIUM CARBONATE, 500MG CA /5 ML,) 1250 MG/5ML suspension 6 mL by Enteral Tube route once daily 150 mL 6 10/25/19 18 Active Probiotic Product (ADVANCED PROBIOTIC 10) CAPS 1 (one) capsule by Enteral route once daily Active Multiple Vitamins-Minera ls (Multivitamin) LIQD 15 mL by Enteral route once daily Active Resource Instant Protein POWD Use 2 scoops BID with Jevity 1.0 10/24/19 23 Active bisacodyl (Dulcolax) 10 MG suppository Insert 1 (one) suppository into the rectum once daily as needed for Constipation (if no stool within 24h) 14 suppository 12/03/19 24 Active morphine 10 MG/5ML oral solutionIndicat ions:End of life care Give 1-2.5 mL either by feeding tube or buccally every 15-30 minutes as needed for distress, discomfort, restlessness, increased work of breath, or air hunger at end of life. 100 mL 12/31/19 24 Active LORazepam (Ativan) 2 MG/ML oral solutionIndicat ions:End of life care 1 mL by Enteral Tube route every 1 hour as needed for Anxiety or Agitation (distress or discomfort associated with end of life) 60 mL 1 12/31/19 24 Active sodium phosphate rectal (Fleet Saline) enema Insert 133 mL into the rectum as needed for Constipation 3 enema 5 01/29/20 24 Active Nutritional Supplements (Atempo Standard 1.4) LIQD 360 mL by Enteral route once daily 12/25/19 24 Active medroxyPROGESTE Eron (Provera) 5 MG tabletIndicatio ns:Total self-care deficit Take 1 (one) tablet by mouth at bedtime 90 tablet 4 07/14/19 25 Active acetaminophen (Tylenol) 160 MG/5ML suspension 20.3 mL by Enteral Tube route every 6 hours as needed 08/06/19 25 Active polyethylene glycol 3350 (Miralax) 17 g packet 17 (seventeen) g by Enteral Tube route once daily 30 packet 08/14/19 25 Active mupirocin (Bactroban) 2 % ointment Apply to affected area 3 times daily 22 g 08/21/19 25 Active gentamicin (Garamycin) 0.1 % topical ointment Apply to affected area 3 times daily 30 g 1 08/21/19 25 Active sennosides (Senokot) 8.8 MG/5ML solution 10 mL by Per G Tube route 3 times daily 900 mL 3 09/11/19 25 Active albuterol (Proventil;Vent emmanuel) (2.5 MG/3ML) 0.083% nebulizer solution Please administer 2.5 mg inhaled b.i.d. and Q 4 hours p.r.n. for cough, wheeze, shortness of breath 300 mL 3 10/01/19 25 Active lansoprazole, disintegrating, (Prevacid Solutab) 30 MG tablet DISSOLVE 1 TABLET BY MOUTH DAILY BEFORE BREAKFAST 30 tablet 3 12/09/19 25 Active baclofen (Lioresal) 10 MG tablet GIVE 1 TABLET BY ENTERAL TUBE TWICE DAILY 60 tablet 5 01/02/20 25 Active cloBAZam (Onfi) 2.5 MG/ML oral susp TAKE 5ML VIA GTUBE TWICE DAILY 360 mL 5 01/02/20 25 Active clonazePAM (KlonoPIN) 0.5 MG tablet Crush and give one tablet via g-tube every 6-8 hours as needed for clusters of seizures. 10 tablet 2 01/02/20 25 Active lacosamide (Vimpat) 10 MG/ML oral solution Take 10 mL by mouth 2 times daily 600 mL 01/02/20 25 Active levETIRAcetam (Keppra) 100 MG/ML oral solution 5 ml per g-tube twice daily 300 mL 5 01/02/20 25 Active budesonide (Pulmicort) 0.5 MG/2ML nebulizer suspension Inhale 2 mL by mouth 2 times daily 120 mL 3 02/18/20 25 Active sulfamethoxazol e-trimethoprim (Bactrim;Septra ) 200-40 MG/5ML suspension Take 5 mL by mouth 2 times daily for 10 days 100 mL 01/23/20 25 025 fluconazole (Diflucan) 150 MG tablet Take 1 (one) tablet by mouth once for 1 dose 1 tablet 01/23/20 25 025 Active Problems Patient Care Coordination No te Formatting of this note migh t be different from the original. Do you have any cultural preferences or concerns? No 09/22/21 Problem Noted Date Diagnosed Date Hypoalbuminemia 08/08/2024 Noncardiogenic pulmonary edema 08/08/2024 Acute on chronic respiratory failure with hypoxi a 08/08/2024 Assessment & Plan (08/13/2024 6:54 AM CDT): Assessment: 23 y/o woman with medical complexity (severe static encephalopathy, spastic quadriplegia, intractable epilepsy, chronic respiratory failure and primary aspiration, chronic moderate malnutrition) with comfort care plan and recent hospitalizations for UTI with sepsis now hospitalized with acute on chronic respiratory. Pulmonary edema due to hypoalbuminemia likely contributing. Progression of chronic respiratory failure also a consideration. Hypoalbuminemia likely due to decreased production both due to chronic illness exacerbated by futher decrease in production and increased breakdwon with recent acute illness. Pt with no evidence of increased urine or stool protein losses. Ongoing hypothermia likely due to autonomic instability. Acute infection less likely with reassuring UA and negative blood and urine culture as well as persistance of hypothermia while on antibiotics. Patient improved following two boluses of albumin and lasix though with continued increased oxygen requirement from prior baseline (RA during the day). This morning she appeared significantly less edematous and very comfortable on RA. Goals of care (patient comfortable and cared for at home) as well as risks/benefits of interventions discussed again with mom, primary team, and palliaitive care 08/12. Plan: - Continue nightime CPAP (baseline) - Daily vest and albuterol (home baseline) - Continue increased beneprotein in GT given ongoing low albumin - SIOBHAN warmer for temps < 35 C - Supplemental oxygen via Nasal Canula PRN to maintain oxygen saturations greater than 85%. - Prn lasix for home. - Discussed parameters for giving PRN lasix at home including weights every 2-3d and prn and weights giving flasix or weight increase of 5 lbs from prior weight -- DNR/DNI status. No intubation, no escalation to BIPAP. No chest compressions, no vasopressors, no emergency cardiac drugs. Parents agreeable to fluid resuscitation for hypotension, can give one bolus- contact parents before second bolus. Can give bagged breaths for limited time, but if no improvement then stop -Minimize blood draws and imaging studies. We specifically discussed recommendations against follow up or scheduled cbc's and albumin unless pt were to have clinical changes. We also discussed why follow up CXR would not be helpful given patient's chronic lung disease as well as radiologic findings following clinical findings. Assessment & Plan (08/12/2024 4:27 PM CDT): Assessment: 23 y/o woman with medical complexity (severe static encephalopathy, spastic quadriplegia, intractable epilepsy, chronic respiratory failure and primary aspiration, chronic moderate malnutrition) with comfort care plan and recent hospitalizations for UTI with sepsis now hospitalized with acute on chronic respiratory. Pulmonary edema due to hypoalbuminemia likely contributing. Progression of chronic respiratory failure also a consideration. Hypoalbuminemia likely due to decreased production both due to chronic illness exacerbated by futher decrease in production and increased breakdwon with recent acute illness. Pt with no evidence of increased urine or stool protein losses. Ongoing hypothermia likely due to autonomic instability. Acute infection less likely with reassuring UA and negative blood and urine culture as well as persistance of hypothermia while on antibiotics. Patient improved following albumin and lasix though with continued increased oxygen requirement from baseline (RA during the day). This morning she appeared significantly less edematous and very comfortable on RAShe is followed by palliative care. Plan: - s/p two treatments of Albumin 25g and Lasix 40 mg - Continue nightime CPAP (baseline) - Daily vest and albuterol (home baseline) - Continue increased beneprotein in GT given ongoing low albumin - SIOBHAN warmer for temps < 35 C - Supplemental oxygen via Nasal Canula PRN to maintain oxygen saturations greater than 85% - Discussed oxygen parameters with palliative care at bedside this morning. Team is comfortable with allowing Donna to have saturations as low as 85% on RA so long as she appears comfortable/has no signs of increased WOB/distress - Per father, can go up to 5L O2 at home - Plan on prn lasix for home - Discussed parameters for giving PRN lasix at home including daily weights and giving for weight increase of 5 lbs -- DNR/DNI status. No intubation, no escalation to BIPAP. No chest compressions, no vasopressors, no emergency cardiac drugs. Parents agreeable to fluid resuscitation for hypotension, can give one bolus- contact parents before second bolus. Can give bagged breaths for limited time, but if no improvement then stop Assessment & Plan (08/11/2024 10:28 AM CDT): Assessment: 23 y/o woman with medical complexity (severe static encephalopathy, spastic quadriplegia, intractable epilepsy, chronic respiratory failure and primary aspiration, chronic moderate malnutrition) with comfort care plan and recent hospitalizations for UTI with sepsis now hospitalized with acute on chronic respiratory failure due to pulmonary edema. Pulmonary edema due to hypoalbuminemia most likely. Hypoalbuminemia likely due to decreased production both due to chronic illness exacerbated by futher decrease in production and increased breakdwon with recent acute illness. Pt with no evidence of increased urine or stool protein losses. Ongoing hypothermia likely due to autonomic instability. Acute infection less likely with reassuring UA and negative blood and urine culture as well as persistance of hypothermia while on antibiotics. Patient improved following albumin and lasix though with continued increased oxygen requirement from baseline (RA during the day). Plan: - Repeat Albumin and Lasix today given hypoxia requiring 2L NC - Continue nightime CPAP - Change respiratory treatments to daily vest and albuterol (home baseline) - Increase beneprotein - SIOBHAN warmer for temps < 35 C - Supplemental oxygen via Nasal Canula PRN to maintain oxygen saturations greater than 88% - Per father, can go up to 5L O2 at home, but baseline is RA - Plan on prn lasix for home -- DNR/DNI status. No intubation, no escalation to BIPAP. No chest compressions, no vasopressors, no emergency cardiac drugs. Parents agreeable to fluid resuscitation for hypotension, can give one bolus- contact parents before second bolus. Can give bagged breaths for limited time, but if no improvement then stop Assessment & Plan (08/10/2024 11:17 AM CDT): Assessment: Donna Herring is a 23-year-old female admitted to [facility] (08/08/2024) for acute hypoxemic respiratory failure secondary to pulmonary edema. 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 Most likely etiology of anasarca is increased fluid administration associated with recent hospital admission in conjunction with hypoalbuminemia. Given no evidence of Acute Kidney Injury (NILSON) nor proteinemia, hypoalbuminemia cannot be attributed to nephrotic syndrome. May consider malabsorption as an etiology, although again less likely due to no evidence of steatorrhea by history, and recent alterations in dietary regimen would not acute for precipitous decrease from baseline. Protein losing gastroenteropathies are also less likely. Given Donna's pancytopenia, must consider decreased hepatic synthesis, although markers of liver injury (08/08/2024 ALT 17U/L, AST 17U/L) are reassuringly normal. Leukopenia may be attributed to acute infectious process, with recent history of known polymicrobial Urinary Tract Infection (UTI), but no evidence of complicating renal abscess on Renal Ultrasound (08/03/2024) nor viral process on Respiratory Pathogen Panel (08/03/2024). Persistent hypernatremia and hyperchloremia likely attributed to fluid loss with gastric clean out during previous admission and compensation for electrolyte loss. Donna required admission for albumin repletion and diuretics as treatment for pulmonary edema, with empiric parenteral antibiotic therapy as treatment for presumed infectious etiology of Sepsis. Since albumin repletion her edema has improved, but she continues to have significantly fluctuating temperatures with hypothermia requiring Siobhan hugger blanket as well as intermittent oxygen requirement (baseline RA) thus requiring admission for management. 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) - Continue Home Feeding Regimen (utilize Atempo 1.2 kcal while hospitalized) Increase Beneprotein per nutrition recommendations - Formula: Mix 400mL [employer] 1.2 + 3 scoops Beneprotein + 580 mL water to provide 530 calories per day - Give 325 ml of Formula 3x daily at 0730, 1300, and 1700 over 1 hour then give 300 ml water flush over 1 hour after each feed - Continue calcium carbonate 600mg, via G-Tube, qDaily - Ondansetron 4mg, via G-Tube, PRN [id number] Gastroesophageal Reflux Disease (01/12/2010) - Continue omeprazole-sodium bicarbonate (Konvomep) 2-84mg/mL, via G-Tube, qDaily ID: - Presumed Sepsis (08/08/2024) - Urine Cx and Blood Cx from 5/3 with NGTD - Discontinue IV cefepime and watch for clinical signs of infection NEURO: Severe, Spastic, Quadriplegic Cerebral Palsy (2002) - Continue baclofen (Lioresal) 10mg, via G-Tube, BID - Acetaminophen 15mg/kg, via G-Tube, PRN [id number] for pain - Hydroxyzine 25mg, via G-Tube, PRN [id number] for anxiety Complex, Partial epilepsy (2001) Seizure Semiology: 1. Full body shakes 2. Turning head with minor shakes - Continue clobazam (Onfi) 12.5mg, via G-Tube, BID - Continue lacosamide (Vimpat) 100mg, via G-Tube, BID - Continue levetiracetam (Keppra) 500mg, via G-Tube, BID - Seizure Rescue Plan: - Midazolam (Versed) 0.2mg/kg, IN for seizures lasting longer than 5-minutes STOCK CONTROLLER: Dysmenorrhea (10/03/2011) - Continue medroxyprogesterone (Provera) 5mg, via G-Tube, qHS ACCESS: - Peripheral IV, Left Forearm Consult Palliative Care: - Appreciate recommendations - Will plan on order for PRN lasix at discharge Assessment & Plan (08/09/2024 9:46 AM CDT): Assessment: Donna Herring is a 23-year-old female admitted to [facility] (08/08/2024) for acute hypoxemic respiratory failure secondary to pulmonary edema. 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 Most likely etiology of anasarca is increased fluid administration associated with recent hospital admission in conjunction with hypoalbuminemia. Given no evidence of Acute Kidney Injury (NILSON) nor proteinemia, hypoalbuminemia cannot be attributed to nephrotic syndrome. May consider malabsorption as an etiology, although again less likely due to no evidence of steatorrhea by history, and recent alterations in dietary regimen would not acute for precipitous decrease from baseline. Protein losing gastroenteropathies are also less likely. Given Donna's pancytopenia, must consider decreased hepatic synthesis, although markers of liver injury (08/08/2024 ALT 17U/L, AST 17U/L) are reassuringly normal. Leukopenia may be attributed to acute infectious process, with recent history of known polymicrobial Urinary Tract Infection (UTI), but no evidence of complicating renal abscess on Renal Ultrasound (08/03/2024) nor viral process on Respiratory Pathogen Panel (08/03/2024). Hyponatremia ( Na+ 150mmol/L) may be attributed to appropriate renal compensation for intravascular depletion, with associated hypochloremia (Cl- 114mmol/L) and by review appears to be a chronic rather than acute process. Donna requires admission for albumin repletion and diuretics as treatment for pulmonary edema, with empiric parenteral antibiotic therapy as treatment for presumed infectious etiology of Sepsis. 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) ---Continue Home Feeding Regimen -----Formula: Mix 400mL [employer] 1.2 + 2 scoops Beneprotein + 580 mL water to provide 530 calories per day -----Schedule: 07:30, 13:00, 17:00 -----Give 325 ml of [employer] daily -->730am, 1pm, 5pm over 1 hour then give 300 ml water flush over 1 hour after each feed --- Continue calcium carbonate 600mg, via G-Tube, qDaily -Gastroesophageal Reflux Disease (01/12/2010) ---Continue omeprazole-sodium bicarbonate (Konvomep) 2-84mg/mL, via G-Tube, qDaily ID: -Sepsis (08/08/2024) ---Start cefepime (Maxipime) 2g, IV, BID for 10-days for presumed Urinary Tract Infection ---Continue to follow Urine Culture (08/08/2024 at 13:36) & Blood Culture (08/08/2024 at 14:09) NEURO: -Severe, Spastic, Quadriplegic Cerebral Palsy (2002) ---Continue baclofen (Lioresal) 10mg, via G-Tube, BID -Complex, Partial epilepsy (2001) ---Continue clobazam (Onfi) 12.5mg, via G-Tube, BID ---Continue lacosamide (Vimpat) 100mg, via G-Tube, BID ---Continue levetiracetam (Keppra) 500mg, via G-Tube, BID ---Consult Palliative Care -Seizure Rescue Plan: ---Seizure Semiology: -----1. full body shakes -----2. turning head with minor shakes ---Plan to administer midazolam (Versed) 0.2mg/kg, TODD, ONCE for seizures lasting longer than 5-minutes ---Start acetaminophen (Tylenol) 15mg/kg, via G-Tube, PRN [id number] ---Start hydroxyzine (Atarax) 25mg, via G-Tube, PRN [id number] ---Start ondansetron (Zofran) 4mg, via G-Tube, PRN [id number] STOCK CONTROLLER: -Dysmenorrhea (10/03/2011) ---Continue medroxyprogesterone (Provera) 5mg, via G-Tube, qHS ACCESS: ---Peripheral IV, Left Forearm Arlyn Gillialnd DO Pediatric Resident, PGY-2 Assessment & Plan (08/08/2024 7:09 PM CDT): Assessment: Donna Herring is a 23-year-old female admitted to [facility] (08/08/2024) for acute hypoxemic respiratory failure secondary to pulmonary edema. 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 Most likely etiology of anasarca is increased fluid administration associated with recent hospital admission in conjunction with hypoalbuminemia. Given no evidence of Acute Kidney Injury (NILSON) nor proteinemia, hypoalbuminemia cannot be attributed to nephrotic syndrome. May consider malabsorption as an etiology, although again less likely due to no evidence of steatorrhea by history, and recent alterations in dietary regimen would not acute for precipitous decrease from baseline. Protein losing gastroenteropathies are also less likely. Given Donna's pancytopenia, must consider decreased hepatic synthesis, although markers of liver injury (08/08/2024 ALT 17U/L, AST 17U/L) are reassuringly normal. Leukopenia may be attributed to acute infectious process, with recent history of known polymicrobial Urinary Tract Infection (UTI), but no evidence of complicating renal abscess on Renal Ultrasound (08/03/2024) nor viral process on Respiratory Pathogen Panel (08/03/2024). Hyponatremia ( Na+ 150mmol/L) may be attributed to appropriate renal compensation for intravascular depletion, with associated hypochloremia (Cl- 114mmol/L) and by review appears to be a chronic rather than acute process. Donna requires admission for albumin repletion and diuretics as treatment for pulmonary edema, with empiric parenteral antibiotic therapy as treatment for presumed infectious etiology of Sepsis. Plan: -Admit to General Medicine Floor, Yellow Team, Dr. Cherry Mario. 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) ---Continue Home Feeding Regimen -----Formula: [employer] 1.2 380mL + 2 Scoops Beneprotein + 600mL Water -----Schedule: 07:30, 13:00, 17:00 -----Bolus: 340mL over 1-hour -----Free Water Flush: 300mL following each feed ---Continue calcium carbonate 600mg, via G-Tube, qDaily -Gastroesophageal Reflux Disease (01/12/2010) ---Continue omeprazole-sodium bicarbonate (Konvomep) 2-84mg/mL, via G-Tube, qDaily ID: -Sepsis (08/08/2024) ---Start cefepime (Maxipime) 2g, IV, BID for 10-days for presumed Urinary Tract Infection ---Continue to follow Urine Culture (08/08/2024 at 13:36) & Blood Culture (08/08/2024 at 14:09) NEURO: -Severe, Spastic, Quadriplegic Cerebral Palsy (2002) ---Continue baclofen (Lioresal) 10mg, via G-Tube, BID -Complex, Partial epilepsy (2001) ---Continue clobazam (Onfi) 12.5mg, via G-Tube, BID ---Continue lacosamide (Vimpat) 100mg, via G-Tube, BID ---Continue levetiracetam (Keppra) 500mg, via G-Tube, BID -Seizure Rescue Plan: ---Seizure Semiology: -----1. full body shakes -----2. turning head with minor shakes ---Plan to administer midazolam (Versed) 0.2mg/kg, TODD, ONCE for seizures lasting longer than 5-minutes ---Start acetaminophen (Tylenol) 15mg/kg, via G-Tube, PRN [id number] ---Start hydroxyzine (Atarax) 25mg, via G-Tube, PRN [id number] ---Start ondansetron (Zofran) 4mg, via G-Tube, PRN [id number] STOCK CONTROLLER: -Dysmenorrhea (10/03/2011) ---Continue medroxyprogesterone (Provera) 5mg, via G-Tube, qHS ACCESS: ---Peripheral IV, Left Forearm Arlyn Gilliland DO Pediatric Resident, PGY-2 Moderate protein-calorie malnutrition 07/30/2024 Assessment & Plan (08/04/2024 12:01 PM CDT): Assessment: G-tube dependent patient with 4 kg weight loss in the past 7 months. Plan: - Nutrition consulted, appreciate recommendations - Nutrition labs obtained: Vit D, TSH and T4, Iron, reassuring - Advancing to home feed regimen today Assessment & Plan (08/03/2024 12:59 PM CDT): Assessment: G-tube dependent patient with 4 kg weight loss in the past 7 months. Plan: - Nutrition consulted, appreciate recommendations - Nutrition labs obtained: Vit D, TSH and T4, Iron - Current Home feed regimen: Formula Recipe: 1 carton (325 mL) Atempo + 650 mL water + 2 scoops beneprotein making roughly 975 mL formula. Offers this divided into 3 feeds per day (325 mL of prepared formula at 730am, 1pm, 5pm). 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 Episode started with white frothy sputum noted in CPAP mask followed by a desaturation to 50% that did not resolve with home oxygen. She was noted to be in no respiratory distress on 3L of open face mask and lungs were clear to auscultation. Lab work not concerning for bacterial infection. Differential includes possible aspiration pneumonia given CXR findings vs viral infection vs mucus plugging. Requires admission for observation. Plan: - Will obtain a UA this morning - Admit to Red Team, Dr. Ryan Rodriguez q6 for concerns for aspiration pneumonia - Currently needing intermittent O2 supplementation - Albuterol and Atrovent with bronchial hygiene - CPAP at night (setting of 8) - Continue home medications - vitals q4 - CRM - Continue home feeds: Jevity 1.5 300 mL + 700 mL water + 4 packets of BeneProtein; Total volume of 950 mL divided over 3 feeds (7AM, 12PM, 5PM); 250 mL water flush given after each feed + additional 250 mL water flush in the evening - pulse ox - Consider RPP and further infectious workup if having fevers or vital sign instability - Wound care consult for rough skin around [facility] site - Limited code Assessment & Plan (07/12/2023 9:11 PM CDT): Assessment: Donna Herring is a 22 year old female spastic CP, static encephalopathy, 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 Episode started with white frothy sputum noted in CPAP mask followed by a desaturation to 50% that did not resolve with home oxygen. She was noted to be in no respiratory distress on 3L of open face mask and lungs were clear to auscultation. Lab work not concerning for bacterial infection. Differential includes possible aspiration pneumonia given CXR findings vs viral infection vs mucus plugging. Requires admission for observation. Plan: - Admit to Red Team, Dr. Ryan Rodriguez q6 for concerns for aspiration pneumonia - Currently needing intermittent O2 supplementation - Albuterol and Atrovent with bronchial hygiene - CPAP at night (setting of 8) - Continue home medications - vitals q4 - CRM - Continue home feeds: Jevity 1.5 300 mL + 700 mL water + 4 packets of BeneProtein; Total volume of 950 mL divided over 3 feeds (7AM, 12PM, 5PM); 250 mL water flush given after each feed + additional 250 mL water flush in the evening - pulse ox - Consider RPP and further infectious workup if having fevers or vital sign instability - Wound care consult for rough skin around [facility] site - Limited code Assessment & Plan (07/11/2023 9:24 PM CDT): Assessment: Donna Herring is a 22 year old female spastic CP, static encephalopathy, 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 Episode started with white frothy sputum noted in CPAP mask followed by a desaturation to 50% that did not resolve with home oxygen. She was noted to be in no respiratory distress on 3L of open face mask and lungs were clear to auscultation. Lab work not concerning for bacterial infection. Differential includes possible aspiration pneumonia given CXR findings vs viral infection vs mucus plugging. Requires admission for observation. Plan: - Admit to Red Team, Dr. Davis - Jennifer q6 for concerns for aspiration pneumonia - Currently needing intermittent O2 supplementation - Albuterol and Atrovent with bronchial hygiene - CPAP at night (setting of 8) - Continue home medications - vitals q4 - CRM - Continue home feeds: Jevity 1.5 300 mL + 700 mL water + 4 packets of BeneProtein; Total volume of 950 mL divided over 3 feeds (7AM, 12PM, 5PM); 250 mL water flush given after each feed + additional 250 mL water flush in the evening - pulse ox - Consider RPP and further infectious workup if having fevers or vital sign instability - Wound care consult for rough skin around [facility] Cath site - Limited code Assessment & Plan (07/11/2023 8:57 PM CDT): Assessment: Donna Herring is a 22 year old female spastic CP, static encephalopathy, 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 Episode started with white frothy sputum noted in CPAP mask followed by a desaturation to 50% that did not resolve with home oxygen. She was noted to be in no respiratory distress on 3L of open face mask and lungs were clear to auscultation. Lab work not concerning for bacterial infection. Differential includes possible aspiration pneumonia given CXR findings vs viral infection vs mucus plugging. Requires admission for observation. Plan: - Admit to Red TeamDr. Ryan q6 for concerns for aspiration pneumonia - Currently needing intermittent O2 supplementation - Albuterol and Atrovent with bronchial hygiene - CPAP at night (setting of 8) - Continue home medications - vitals q4 - CRM - Continue home feeds: Jevity 1.5 300 mL + 700 mL water + 4 packets of BeneProtein; Total volume of 950 mL divided over 3 feeds (7AM, 12PM, 5PM); 250 mL water flush given after each feed + additional 250 mL water flush in the evening - pulse ox - Consider RPP and further infectious workup if having fevers or vital sign instability - Wound care consult for rough skin around [facility] site - Limited code Assessment & Plan (07/10/2023 5:20 PM CDT): Assessment: Donna Herring is a 22 year old female spastic CP, static encephalopathy, 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 Episode started with white frothy sputum noted in CPAP mask followed by a desaturation to 50% that did not resolve with home oxygen. She was noted to be in no respiratory distress on 3L of open face mask and lungs were clear to auscultation. Lab work not concerning for bacterial infection. Differential includes possible aspiration pneumonia given CXR findings vs viral infection vs mucus plugging. Requires admission for observation. Plan: - Admit to Red Team, Dr. Ryan Rodriguez q6 for concerns for aspiration pneumonia - Currently on RA, continue to observe oxygen saturations - CPAP at night (setting of 8) - Continue home medications - vitals q4 - CRM - Continue home feeds: Jevity 1.5 300 mL + 700 mL water + 4 packets of BeneProtein; Total volume of 950 mL divided over 3 feeds (7AM, 12PM, 5PM); 250 mL water flush given after each feed + additional 250 mL water flush in the evening - pulse ox - Consider RPP and further infectious workup if having fevers or vital sign instability - Wound care consult for rough skin around [facility] site - Limited code Palliative care patient 09/28/2022 Assessment & Plan (10/12/2022 1:37 PM CDT): Assessment: Currently followed by palliative care given significant progression in symptoms over the past 6 months. Family was contemplating Hospice care. Plan: - DNR + comfort measures - No CPR, shock, cardiac medications, intubation, or BiPAP - Family does wish for the following if needed: fluids, antibiotics, oxygen, and CPAP -At this time, if Hayli were to need additional support and comfort -Oxycodone 5 mg Q4H PRN for pain, dyspnea -Ativan can be added for dyspnea if needed, 2 mg IV Q2-4H PRN I have discussed plan of care with Dr. Howard today. Assessment & Plan (10/11/2022 12:28 PM CDT): Assessment: Currently followed by palliative care given significant progression in symptoms over the past 6 months. Family was contemplating Hospice care. Plan: - DNR + comfort measures, confirmed code status this AM with Team [employer] Gale Collins and mother this AM on rounds via phone - No CPR, shock, cardiac medications, intubation, or BiPAP -Will need to verify with family if they would like Hayli to be bagged or not if necessary - Follow up with Dr. Hoawrd - Family does wish for the following if needed: fluids, antibiotics, oxygen, and CPAP -At this time, if Hayli were to need additional support and comfort -Oxycodone 5 mg Q4H PRN for pain, dyspnea -Ativan can be added for dyspnea if needed, 2 mg IV Q2-4H PRN Assessment & Plan (10/10/2022 9:51 AM CDT): Assessment: Currently followed by palliative care given significant progression in symptoms over the past 6 months. Family was contemplating Hospice care. Plan: - DNR + comfort measures, confirmed code status this AM with Team [employer]PER[employer] Gale Collins and mother this AM on rounds via phone - No CPR, shock, cardiac medications, intubation, or BiPAP -Will need to verify with family if they would like Hayli to be bagged or not if necessary - Dr. Howard is to meet with the family this afternoon - Family does wish for the following if needed: fluids, antibiotics, oxygen, and CPAP -At this time, if Donna were to need additional support and comfort -Oxycodone 5 mg Q4H PRN for pain, dyspnea -Ativan can be added for dyspnea if needed, 2 mg IV Q2-4H PRN Assessment & Plan (09/28/2022 12:25 PM CDT): Assessment: Patient followed by palliative care since last hospitalization given significant progression of symptoms in the past ~6mo with 4 hospitalizations for acute on chronic respiratory failure requiring PICU Plan: - DNR + comfort measures -No CPR, shock, cardiac medications, or intubation -Family does wish for the following if needed: fluids, oxygen, CPAP/BIPAP, antibiotics, transfer to PICU -Hospice care evaluation with assistance of palliative care Chronic respiratory failure with hypercapnia Assessment & Plan (08/04/2024 12:01 PM CDT): Assessment: Pt with chronic respiratory failure, chronic aspiration, and episode of emesis with aspiration 07/31 early AM at risk for aspiration pneumonitis and pneumonia. No emesis over past few nights. Tolerating CPAP at night with self-resolved desaturations. Plan: - Continue nightime CPAP 8 or NC at 2L per parent request - Daily vest and albuterol - Monitor respiratory status closely - If pt developing hypoxemia or respiratory distress increased vest to q4hrs Assessment & Plan (08/03/2024 12:59 PM CDT): Assessment: Pt with chronic respiratory failure, chronic aspiration, and episode of emesis with aspiration / early AM at risk for aspiration pneumonitis and pneumonia. No emesis over night, but kept off CPAP at parent request. Amp/sulbactam for UTI providing coverage for possible aspiration pneumonia Plan: - Continue nightime CPAP 8 or NC at 2L per parent request - Daily vest and albuterol - Monitor respiratory status closely - If pt developing hypoxemia or respiratory distress increased vest to q4hrs Assessment & Plan (08/02/2024 10:39 AM CDT): Assessment: Pt with chronic respiratory failure, chronic aspiration, and episode of emesis with aspiration 07/31 early AM at risk for aspiration pneumonitis and pneumonia. No emesis over night, but kept off CPAP at parent request. Amp/sulbactam for UTI providing coverage for apsiration pneumonia Plan: - Continue nightime CPAP 8 or NC at 2L per parent request - Daily vest and albuterol - Monitor respiratory status closely - If pt developing hypoxemia or respiratory distress increased vest to q4hrs Assessment & Plan (08/01/2024 1:42 PM CDT): Assessment: Pt with chronic respiratory failure, chronic aspiration, and episode of emesis with aspiration 07/31 early AM at risk for aspiration pneumonitis and pneumonia. No emesis over night, but kept off CPAP at parent request. Plan: - Continue nightime CPAP 8 or NC at 2L per parent request - Daily vest and albuterol - Monitor respiratory status closely - If pt developing hypoxemia or respiratory distress increased vest to q4hrs Assessment & Plan (07/31/2024 11:05 AM CDT): Assessment: Pt with chronic respiratory failure Plan: -Continue nightime CPAP 8 -Daily vest and albutero Assessment & Plan (08/05/2023 6:16 PM CDT): Assessment: Donna is a 22 yr old female with complex PMHx including OSCAR as an with subsequent CP, chronic respiratory failure, and restrictive lung disease, presenting with acute hypoxic respiratory failure. RPP negative, and pt does not have secretion burden or other sick symptoms, which may point towards mucous plugging or atelectasis as a more likely etiology for her hypoxia on admission, especially given the seemingly quick recovery.She requires admission for further evaluation and management of acute on chronic hypoxic respiratory failure. Plan: Admit to Pulmonology service, Dr. Barksdale Continue HFNC at 40L, 21% FiO2. Wean as tolerated to maintain sats >90% - Trial room air today, OK to leave on room air during the day as tolerated. - Continue home CPAP 8 cm H2O while sleeping - Note: Pt is DNR/DNI with nothing beyond her CPAP and additional O2 support. No BiPAP. No chest compressions, defibrillation, or cardiac meds among other limitations to her code status. OK to give bagged breaths for limited time, but if no improvement then stop. Vest and albuterol q6h Continue home diet of Jevity 1.5 Bolus feeds Continue home medications baclofen, Calcium Carbonate, onfi, vimpat, keppra, provera, omeprazole-sodium bicarbonate, senna PRN versed for seizures >5 min, PRN Klonopin for seizure clusters Continuous Pulse ox CRM Strict I/O Vitals q4h Assessment & Plan (08/04/2023 3:33 PM CDT): Assessment: Donna is a 22 yr old female with complex PMHx including OSCAR as an infant with subsequent CP, chronic respiratory failure, and restrictive lung disease, presenting with acute hypoxic respiratory failure. She has had 1 day of cough and desaturations to the 60s requiring significant respiratory support. Parents deny other sick symptoms including fever. Labs in the ED mostly unremarkable, and RPP is pending. CXR shows atelectatic changes, but no focal infiltrate. Most likely source of respiratory distress is Viral upper vs lower respiratory tract infection. Bacterial infection cannot be ruled out at this time, but is significantly less likely due to lack of focal exam and CXR findings, and normal WBC/procalcitonin. She requires admission for further evaluation and management of acute on chronic hypoxic respiratory failure. Plan: Admit to Pulmonology service, Dr. Barksdale Continue HFNC at 50L, 60% FiO2. Wean as tolerated to maintain sats >90% - Note: Pt is DNR/DNI with nothing beyond her CPAP and additional O2 support. No BiPAP. No chest compressions, defibrillation, or cardiac meds among other limitations to her code status. OK to give bagged breaths for limited time, but if no improvement then stop. Vest and albuterol q4h Follow up results of RPP Continue home diet of Jevity 1.5 Bolus feeds Continue home medications baclofen, Calcium Carbonate, onfi, vimpat, keppra, provera, omeprazole-sodium bicarbonate, senna PRN versed for seizures >5 min, PRN Klonopin for seizure clusters Continuous Pulse ox CRM Strict I/O Vitals q4h Assessment & Plan (02/06/2023 11:21 AM CDT): Assessment: Donna is a 22 y/o F with complex medical hx including spastic CP, severe static encephalopathy, chronic respiratory failure secondary to static encephalopathy, g-tube dependence, and epilepsy who presents with acute hypoxic respiratory failure. Admitted from 01/03-01/15 with similar presentation; completed antibiotic course on 01/20. Symptoms include increased respiratory secretions for 2 days and new need for supplemental O2. No temp abnormalities reported at home, but hypothermic to 92 in ED. DDx includes CAP vs aspiration PNA vs viral PNA. RPP is positive for rhino/entero, likely still present from last illness. Physical exam reassuring. Donna was on RA from 1345 yesterday except her home CPAP at night. Will observe her until 2 PM today for O2 requirements. Plan to discharge if she tolerates RA today as she is back to her home respiratory status. Plan: Respiratory: - Continue CPAP 8 overnight. O2 via NC as needed during the day. - For reference, home support includes: RA during day and CPAP 8 with no oxygen during night - Continue ceftriaxone and doxycycline for 7 days. - Scheduled glycopyrrolate q8 for secretions while she is on antibiotics. She can continue with as needed glycopyrrolate after the antibiotic course. - Continous pulse ox - CRM monitors - Bronchial hygiene: vest and albuterol q6 hours - Home support is vest with albuterol QD FEN/GI: - Continue home feeds: 300 mL of Jevity 1.5, 650 mL of water, and 3 scoops of Beneprotein. One third of this mixture is to be given at each feed, followed by 300 mL water flush, with another 300 mL water flush in the evening. Feeds at 0800, 1300, and 1800. - Continue home meds: multivitamin, calcium carbonate, Nexium, and senna - Strict I&Os - F/U stool culture. ID: - Continue Ceftriaxone 2 g QD - Continue Doxycycline 100 mg q12 : - Pt with DAVID; no concerns at this time for UTI or other urologic issues - Straight cath via DAVID q3h during day while not on IV fluids and at night as well when on IV fluids Neuro: - No increase in seizure frequency - Continue home meds: Onfi, Vimpat, Keppra - Baseline temperature ~94-96 secondary to autonomic instability - Peter Hugger PRN to maintain temps >94 - Tylenol PRN for pain/fevers - Ativan PRN for agitation CODE STATUS: Limited code; reviewed with family at time of admission by ED attending. No intubation, no escalation to BIPAP. No chest compressions, no vasopressors, no emergency cardiac drugs. Parents agreeable to fluid resuscitation for hypotension. Assessment & Plan (02/05/2023 1:43 PM CDT): Assessment: Donna is a 22 y/o F with complex medical hx including spastic CP, severe static encephalopathy, chronic respiratory failure secondary to static encephalopathy, g-tube dependence, and epilepsy who presents with acute hypoxic respiratory failure. Admitted from 01/03-01/15 with similar presentation; completed antibiotic course on 01/20. Symptoms include increased respiratory secretions for 2 days and new need for supplemental O2. No temp abnormalities reported at home, but hypothermic to 92 in ED. DDx includes CAP vs aspiration PNA vs viral PNA. RPP is positive for rhino/entero, likely still present from last illness. Physical exam unchanged from yesterday although she looked more comfortable today and was smiling in the room. MRSA was resistant to bactrim, so bactrim was switched to doxycycline. Will do RA trial during the day. Plan to discharge once she is back to her baseline respiratory status. Plan: Respiratory: - Continue CPAP 8 overnight. O2 via NC as needed during the day. - For reference, home support includes: RA during day and CPAP 8 with no oxygen during night - Continue ceftriaxone and doxycycline for 7 days. - Scheduled Robinul q8 for secretions while she is admitted. Will discharge with as needed robinul. - Continous pulse ox - CRM monitors - Bronchial hygiene: vest and albuterol q6 hours - Home support is vest with albuterol QD FEN/GI: - Continue home feeds: 300 mL of Jevity 1.5, 650 mL of water, and 3 scoops of Beneprotein. One third of this mixture is to be given at each feed, followed by 300 mL water flush, with another 300 mL water flush in the evening. Feeds at 0800, 1300, and 1800. - Continue home meds: multivitamin, calcium carbonate, Nexium, and senna - Strict I&Os - F/U stool culture. ID: - Continue Ceftriaxone 2 g QD - Continue Doxycycline 100 mg q12 : - Pt with DAVID; no concerns at this time for UTI or other urologic issues - Straight cath via DAVID q3h during day while not on IV fluids and at night as well when on IV fluids Neuro: - No increase in seizure frequency - Continue home meds: Onfi, Vimpat, Keppra - Baseline temperature ~94-96 secondary to autonomic instability - Peter Hugger PRN to maintain temps >94 - Tylenol PRN for pain/fevers - Ativan PRN for agitation CODE STATUS: Limited code; reviewed with family at time of admission by ED attending. No intubation, no escalation to BIPAP. No chest compressions, no vasopressors, no emergency cardiac drugs. Parents agreeable to fluid resuscitation for hypotension. Assessment & Plan (02/04/2023 4:48 PM CDT): Assessment: Donna is a 22 y/o F with complex medical hx including spastic CP, severe static encephalopathy, chronic respiratory failure secondary to static encephalopathy, g-tube dependence, and epilepsy who presents with acute hypoxic respiratory failure. Admitted from 01/03-01/15 with similar presentation; completed antibiotic course on 01/20. Symptoms include increased respiratory secretions for 2 days and new need for supplemental O2. No temp abnormalities reported at home, but hypothermic to 92 in ED. DDx includes CAP vs aspiration PNA vs viral PNA. RPP is positive for rhino/entero, likely still present from last illness. Physical exam unchanged from yesterday although she looked more comfortable today. Trach aspirate culture grew MRSA and proteus thus, she was started on Ceftriaxone and Bactrim today. GI panel was negative. Stool C.diff was negative, thus vancomycin was discontinued. Plan: Respiratory: - Continue CPAP 8 overnight. O2 via NC as needed during the day. - For reference, home support includes: RA during day and CPAP 8 with no oxygen during night - Continue ceftriaxone and bactrim for 7 days. - Scheduled Robinul q8 for secretions - Continous pulse ox - CRM monitors - Bronchial hygiene: vest and albuterol q6 hours - Home support is vest with albuterol QD FEN/GI: - Continue home feeds: 300 mL of Jevity 1.5, 650 mL of water, and 3 scoops of Beneprotein. One third of this mixture is to be given at each feed, followed by 300 mL water flush, with another 300 mL water flush in the evening. Feeds at 0800, 1300, and 1800. - Continue home meds: multivitamin, calcium carbonate, Nexium, and senna - Strict I&Os - F/U stool culture. Heme/ID: - Follow blood and tracheal aspirate cultures and C diff (no urine culture obtained, as UA not concerning for UTI) - Continue IV Cefepime 2000 mg q8h for broad-spectrum coverage (including pseudomonas) - Continue IV Linezolid 600 mg q12h for MRSA coverage - Continue enteral Vancomycin 125 mg q6h for C diff coverage - Consider consulting ID given hx of MDROs : - Pt with DAVID; no concerns at this time for UTI or other urologic issues - Straight cath via DAVID q3h during day while not on IV fluids and at night as well when on IV fluids Neuro: - No increase in seizure frequency - Continue home meds: Onfi, Vimpat, Keppra - Baseline temperature ~94-96 secondary to autonomic instability - Peter Hugger PRN to maintain temps >94 - Tylenol PRN for pain/fevers - Ativan PRN for agitation CODE STATUS: Limited code; reviewed with family at time of admission by ED attending. No intubation, no escalation to BIPAP. No chest compressions, no vasopressors, no emergency cardiac drugs. Parents agreeable to fluid resuscitation for hypotension. Assessment & Plan (02/04/2023 5:14 AM CDT): Assessment: Donna is a 22 y/o F with complex medical hx including spastic CP, severe static encephalopathy, chronic respiratory failure secondary to static encephalopathy, g-tube dependence, and epilepsy who presents with acute hypoxic respiratory failure. Admitted from 01/03-01/15 with similar presentation; completed antibiotic course on 01/20. Symptoms include increased respiratory secretions for 2 days and new need for supplemental O2. No temp abnormalities reported at home, but hypothermic to 92 in ED. DDx includes CAP vs aspiration PNA vs viral PNA. RPP is positive for rhino/entero, likely still present from last illness. Donna is maintaining 90-92% saturation at 5L O2 via NC. Physical exam unchanged. Plan: Admit to general medicine; Purple Team, Dr. Petersen Respiratory: - Continue CPAP PEEP 10 with 15 L O2 bled in - For reference, home support includes: RA during day and CPAP 8 with no oxygen during night - Added Robinul PRN for secretions - Continous pulse ox - CRM monitors - Increase bronchial hygiene: vest and albuterol q4 hours - Home support is vest with albuterol QD and PRN FEN/GI: - Continue home feeds: 300 mL of Jevity 1.5, 650 mL of water, and 3 scoops of Beneprotein. One third of this mixture is to be given at each feed, followed by 300 mL water flush, with another 300 mL water flush in the evening. Feeds at 0800, 1300, and 1800. - Continue home meds: multivitamin, calcium carbonate, Nexium, and senna - Strict I&Os - F/U stool studies. Heme/ID: - Follow blood and tracheal aspirate cultures and C diff (no urine culture obtained, as UA not concerning for UTI) - Continue IV Cefepime 2000 mg q8h for broad-spectrum coverage (including pseudomonas) - Continue IV Linezolid 600 mg q12h for MRSA coverage - Continue enteral Vancomycin 125 mg q6h for C diff coverage - Consider consulting ID given hx of MDROs : - Pt with DAVID; no concerns at this time for UTI or other urologic issues - Straight cath via DAVID q3h during day while not on IV fluids and at night as well when on IV fluids Neuro: - No increase in seizure frequency - Continue home meds: Onfi, Vimpat, Keppra - Baseline temperature ~94-96 secondary to autonomic instability - Peter Hugger PRN to maintain temps >94 - Tylenol PRN for pain/fevers - Ativan PRN for agitation CODE STATUS: Limited code; reviewed with family at time of admission by ED attending. No intubation, no escalation to BIPAP. No chest compressions, no vasopressors, no emergency cardiac drugs. Parents agreeable to fluid resuscitation for hypotension. Assessment & Plan (02/02/2023 2:54 AM CDT): Assessment: Donna is a 22 y/o F with complex medical hx including spastic CP, severe static encephalopathy, chronic respiratory failure secondary to static encephalopathy, g-tube dependence, and epilepsy who presents with acute hypoxic respiratory failure. Admitted from 01/03-01/15 with similar presentation; completed antibiotic course on 01/20. Symptoms include increased respiratory secretions for 2 days and new need for supplemental O2. No temp abnormalities reported at home, but hypothermic to 92 in ED. DDx includes CAP vs aspiration PNA vs viral PNA. RPP is positive for rhino/entero, likely still present from last illness. Requires inpatient admission for further management of respiratory failure. Plan: Admit to general medicine; Purple Team, Dr. Petersen Respiratory: - Continue CPAP PEEP 10 with 15 L O2 bled in - For reference, home support includes: RA during day and CPAP 8 with no oxygen during night - Continous pulse ox - CRM monitors - Increase bronchial hygiene: vest and albuterol q4 hours - Home support is vest with albuterol QD and PRN FEN/GI: - Continue home feeds: 300 mL of Jevity 1.5, 650 mL of water, and 3 scoops of Beneprotein. One third of this mixture is to be given at each feed, followed by 300 mL water flush, with another 300 mL water flush in the evening. Feeds at 0800, 1300, and 1800. - Continue home meds: multivitamin, calcium carbonate, Nexium, and senna - Strict I&Os Heme/ID: - Follow blood and tracheal aspirate cultures and C diff (no urine culture obtained, as UA not concerning for UTI) - Continue IV Cefepime 2000 mg q8h for broad-spectrum coverage (including pseudomonas) - Continue IV Linezolid 600 mg q12h for MRSA coverage - Continue enteral Vancomycin 125 mg q6h for C diff coverage - Consider consulting ID given hx of MDROs : - Pt with DAVID; no concerns at this time for UTI or other urologic issues - Straight cath via DAVID q3h during day while not on IV fluids and at night as well when on IV fluids Neuro: - No increase in seizure frequency - Continue home meds: Onfi, Vimpat, Keppra - Baseline temperature ~94-96 secondary to autonomic instability - Peter Hugger PRN to maintain temps >94 - Tylenol PRN for pain/fevers - Ativan PRN for agitation CODE STATUS: Limited code; reviewed with family at time of admission by ED attending. No intubation, no escalation to BIPAP. No chest compressions, no vasopressors, no emergency cardiac drugs. Parents agreeable to fluid resuscitation for hypotension. Assessment & Plan (09/28/2022 12:20 PM CDT): Assessment: Pt with baseline RA during the day and night CPAP 8, bid vest with recent discontinuation of cough assist with significant RA hypoxemia on initial presentation. Acute respiratory failure likely secondary to shock. Aspiration pneumonitis possible though less likley Plan: - Full face CPAP at pressure - 8 -( at home on RA during the day and CPAP at night - 8) - Bid vest - Set up home oxygen for home Assessment & Plan (09/28/2022 10:59 AM CDT): Assessment: Pt with baseline RA during the day and night CPAP 8, bid vest with recent discontinuation of cough assist with significant RA hypoxemia on initial presentation. Acute respiratory failure likely secondary to shock. Aspiration pneumonitis possible though less likley Plan: - Full face CPAP at pressure - 8 -( at home on RA during the day and CPAP at night - 8) - Bid vest - Set up home oxygen for home Assessment & Plan (09/27/2022 2:52 AM CDT): Assessment: Donna Negrete is a 22 year old female with a PMH of quadriplegia, chronic respiratory failure, and epilepsy with DNR and comfort measures recently admitted for acute hypoxemic respiratory failure (PICU admission 09/01-09/06) here for acute on chronic respiratory failure with worsening bradycardia and hypothermia complicated by hypotension likely in septic shock being admitted to for further management of the same. Plan: - Admit to Yellow Team/General Medicine - Dr Chaya Espinal - IV Cefepime 2000 mg q24h + IV linezolid - Start D5 NS at maintenance rate for IV hydration (s/p 3L NS) - Continue G tube feeds - specific regimen for hospital as per mother and paperwork provided - x 3 bolus feeds total of 330 ml of Jevity 1.5 in addition to 1700 ml of free water - Bronchial Hygiene - vest and cough assist BID - Full face CPAP at pressure - 8 - bleed in currently at 1 L ( at home on RA during the day and CPAP at night - 8) - Follow blood and urine cultures - Strict I's and O's - Straight cath (3-4 times between 7 am - 10 pm) - Continue home medications - CRM - Vitals q4h - DNR + comfort measures Requires supplemental oxygen 09/01/2022 Pneumonia of both lower lobes due to infectious organism 07/12/2022 Neuromuscular respiratory weakness 06/01/2022 Medically complex patient 05/20/2022 Cortical visual impairment 11/16/2020 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 Catheterized per Mitrofanoff q4 hours and no concerns with this. Urinary incontinence typically only with UTIs. A few UTIs recently and discussed return to antibiotic prophylaxis vs watchful waiting and decided on watchful waiting, especially given improvements in recent constipation. Last BMP 12/16, with serum creatinine 0.35. RBUS today without hydronephrosis, renal parenchymal changes, or stones. Bladder program: continue CIC per Mitrofanoff q4 hours (up to 5 times daily), irrigate bladder with saline daily and PRN cloudy or darker urine. Continue stoma stopper use; pause use briefly should skin concerns develop or consider split gauze underneath. Bowel program: Continue management with GI Medication: Complete nitrofurantoin treatment. Consider prophylaxis if recurrent UTIs continue. Imaging: renal ultrasound in 1 year. Labs: renal panel in 1 year. Donna is scheduled for an adult office visit in April 2024. We discussed that we are happy to treat her for UTIs or address any concerns in the meantime, but this is a good time for transition as she is very stable and is now 23 years old. 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 She has a neurogenic bladder and is s/p Mitrofanoff which they do CIC q3hrs during the day. Total fluid intake seems to be around 2.0 liters per day. Renal ultrasound on 08/03/22 was unremarkable. Labs on 01/22/23 showed normal electrolytes and Serum Creatinine of 0.33. Blood Pressure acceptable at 88/64. She did have a recent Proteus UTI due to her neurogenic bladder. I recommend continued urology follow up. At this time there are no acute or chronic kidney issues. Since she is 22 we will not continue to follow up Donna in the Pediatric nephrology clinic but I don't feel a referral to adult nephrology is necessary. 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 She has a neurogenic bladder and is s/p Mitrofanoff which they do CIC q3hrs during the day. Total fluid intake seems to be around 1.5 liters per day. Renal ultrasound on 02/08/22 was unremarkable. Labs today with normal lytes (K borderline low at 3.4) with normal Serum Creatinine 0.42. ALT and AST are mildly elevated at 78 and 40 respectively and she is followed by GI clinic for this. UA with +1 protein and trace blood. Urine Ca/Cr ratio is mildly elevated at 0.22. I would recommend to increase the fluid intake to 2000ml per day to reduce risk for kidneys stones. At this time the GFR appears most likely normal (she has poor muscle mass so the Cr may overestimate GFR). We can check a serum Serum Cystatin C with the next blood draw to better assess GFR. Blood Pressure acceptable at 120/68. Hypoxemia 03/27/2019 Assessment & Plan (10/12/2022 1:38 PM CDT): Assessment: Donna developed acute hypoxemic respiratory failure with requirement of supplemental O2 via simple mask. Donna had received Klonopin ~1 hour prior and was having a seizure around the time this developed. Suspect had some atelectasis and has since improved. Still requiring intermittent supplemetnal O2 through CPAP at night. Discussed with family and Donna does have desats at night at baseline. This AM, Donna has been doing well in RA. Plan: -We will obtain CXR today -Dr. Howard has requested Donna's primary rag room supervisor review the films as well. -Supplemental O2 as needed to maintain saturations >90% -Pulse Oximetry -Vest QID with albuterol -Pulmonary team obtaining home oxygen to be administered as needed Assessment & Plan (10/11/2022 12:27 PM CDT): Assessment: Donna developed acute hypoxemic respiratory failure with requirement of supplemental O2 via simple mask. Donna had received Klonopin ~1 hour prior and was having a seizure around the time this developed, so could be related to this. However, cannot rule out potential aspiration. Normal CXR is reassuring. Low suspicion for pneumonia at this time. Could consider viral etiology, RPP negative. This AM, Donna has been doing well in RA. Plan: -We will obtain CXR today -Dr. Howard has requested Donna's primary rag room supervisor review the films as well. -Supplemental O2 as needed to maintain saturations >90% -Pulse Oximetry -Vest QID with albuterol -Pulmonary team obtaining home oxygen to be administered with CPAP or simple mask if needed Assessment & Plan (10/10/2022 9:49 AM CDT): Assessment: Donna developed acute hypoxemic respiratory failure with requirement of supplemental O2 via simple mask. Donna had received Klonopin ~1 hour prior and was having a seizure around the time this developed, so could be related to this. However, cannot rule out potential aspiration. Normal CXR is reassuring. Low suspicion for pneumonia at this time. Could consider viral etiology, RPP negative. This AM, Donna has been doing well in RA. Plan: -We will obtain CXR today -Dr. Howard has requested Donna's primary rag room supervisor review the films as well. -Supplemental O2 as needed to maintain saturations >90% -Pulse Oximetry -Increased Vest frequency to QID on 10/09, anticipate that we may be able to back down on this throughout the day today pending her respiratory status -Will discuss obtaining home oxygen to be administered with CPAP or simple mask if needed Assessment & Plan (03/28/2019 9:49 AM INSPECTOR PENETRANT): Donna Herring is a 18 year old female with complex PMHx including CP, seizure disorder, and GT dependence who presented for ED for 1 week of intermittent hypoxia per home pulse ox. Episodes are typically about 1 hr and hypoxia into 80s. Episodes have persisted up to 2 hours and she has reached as low as 70s. Mom states they are positional, decreased episodes when supine but any other position may provoke episode. Denies concurrent sick symptoms, change from baseline, increased seizure activity, and increased WOB during episodes. It is possible that pt's hypoxemia is caused by platypnea orthodeoxia, as described by her symptoms, which could be caused by intracardiac shunt, PFO, ASD, or pulmonary diseases with V/Q mismatch. Other etiologies could possibly be due to obstruction, home pulse ox dysfunction, or infectious, however this would be less likely due to pt's lack of symptoms. Pt currently satting mid- high 90s on room air. Plan - Evaluate Pulse ox sitting and lying down, if substantial difference will consult cardiology and obtain echo. - GT dependent feeds, home regimen includes: Feeds: 2.5 (237ml) cans of Jevity in 3 feeds + 300ml H2O Feedings flushed by 250 ml H20 flushes (4) - extra flush in evening with no feeding Total daily intake of Jevity is 593 mL 1000 (4x250) + 300 (w formula) + 240 (w Miralax) = total 1540 ml H2O Total fluid intake is 2133ml Mom usually adds the following to formula: Beneprotein 21g (3 scoops added to formula bag daily), Fe, multivitamin, Calcium carbonate - Continue all home meds - RA, CPAP overnight, PEEP 7 per parents and previous admission - Pulse oximetry - Vitals q4 - I&O's - Suction PRN Assessment & Plan (03/27/2019 11:05 PM INSPECTOR PENETRANT): Donna Herring is a 18 year old female with complex PMHx including CP, seizure disorder, and GT dependence who presented for ED for 1 week of intermittent hypoxia per home pulse ox. Episodes are typically about 1 hr and hypoxia into 80s. Episodes have persisted up to 2 hours and she has reached as low as 70s. Mom states they are positional, decreased episodes when supine but any other position may provoke episode. Tried using CPAP during the day but no change in episodes. Denies concurrent sick symptoms, change from baseline, increased seizure activity, and increased WOB during episodes. Parents contacted pulmonology, who started patient on Augmentin for concern of PNA. Work up in the ED has thus far been unremarkable (see above). She did not desat while on ED pulse ox. Etiologies include upper airway obstruction given positional nature, home pulse ox dysfunction given no hypoxemia noted in ED, aspiration given concern for aspiration PNA during previous admission in early March, much less likely include infectious work up given negative infectious work up and no other sick symptoms. Patient was admitted for further work up. Per pulm, augmentin was not continued, estimate she received ~3 days worth. Plan - Admit to general pediatrics; Dr. Mayo - GT dependent feeds, home regimen includes: Feeds: 2.5 (237ml) cans of Jevity in 3 feeds + 300ml H2O Feedings flushed by 250 ml H20 flushes (4) - extra flush in evening with no feeding Total daily intake of Jevity is 593 mL 1000 (4x250) + 300 (w formula) + 240 (w Miralax) = total 1540 ml H2O Total fluid intake is 2133ml Mom usually adds the following to formula: Beneprotein 21g (3 scoops added to formula bag daily), Fe, multivitamin, Calcium carbonate - Continue all home meds - RA, CPAP overnight, PEEP 7 per parents and previous admission - Pulse oximetry - Vitals q4 - I&O's - Suction PRN 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 From a pulmonary standpoint, Donna has done well. No recent pulmonary infections or concerns for aspiration since her salivary gland Botox injection in May. Physical exam reassuring. Patient is COVID19 vaccinated. Plan: -Continue albuterol PRN -Okay for return to in person schooling with appropriate social distancing and precautions in place. -Follow up in pulmonary clinic in 6-12 months Assessment & Plan (05/10/2020 11:19 AM INSPECTOR PENETRANT): Donna is a 19 y.o. female with a complex medical history as above, who presents for follow up. She has been doing well without recent pulmonary infections or aspiration events. Sialorrhea is being followed by ENT with planned Botox injection on 05/30. Patient with clear lungs and normal respiratory effort on exam. Will continue albuterol PRN. - albuterol PRN - follow up with ENT as scheduled - f/u with pulmonary clinic in 6-12 months Assessment & Plan (11/10/2019 11:22 AM CDT): Impr: Complex 18 year old girl with spastic CP, increased oral secretions, past issues with aspiration-recent apparent aspiration pneumonia treated as an outpatient successfully. Rec: Okay to continue to hold on Robinul Albuterol prn Influenza vaccine this fall Will see in 6 months Assessment & Plan (05/26/2019 12:57 PM INSPECTOR PENETRANT): Donna Herring is a 18 year old female with a complex medical history including spastic quadriplegic CP, NUBIA, and hypersecretion of saliva. Overall today she is doing fairly well. She has had no improvement in her salivation symptoms after starting the Robinul. Other antihistamines such as Zyrtec and Claritin have also failed to provide improvement. She is scheduled for salivary gland botox injection in June by ENT. She has albuterol PRN if needed, but has not needed it. For now, given no improvement in symptoms with Robinul and no need for albuterol, will wait for ENT botox injection results. Plan: -ENT botox injection -Continue albuterol PRN -FU in 6 mo Sialorrhea 06/17/2017 Overview (09/14/2021): Last Assessment & Plan: Donna Herring is a 20 year old female with complex medical history here for 6 month follow up. From a pulmonary standpoint, Donna has done well. No recent pulmonary infections or concerns for aspiration since her salivary gland Botox injection in May. Physical exam reassuring. Patient is COVID19 vaccinated. Plan: -Continue albuterol PRN -Okay for return to in person schooling with appropriate social distancing and precautions in place. 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/2017 Assessment & Plan (08/13/2024 6:51 AM CDT): Assessment: Pt with GT dependence, GERD, and chronic constipation with recent fecal impaction Plan: - Daily miralax 17 g - Senna 17.6 ml BID - Continue omeprazole-sodium bicarbonate (Konvomep) 2-84mg/mL, via G-Tube, qDaily - Continue Home Feeding Regimen (utilize [employer] 1.2 kcal while hospitalized) Increase Beneprotein per nutrition recommendations - Formula: Mix 400mL [employer] 1.2 + 3 scoops Beneprotein + 580 mL water to provide 530 calories per day Assessment & Plan (08/12/2024 4:27 PM CDT): Assessment: Pt with GT dependence, GERD, and chronic constipation with recent fecal impaction Plan: - Daily miralax 17 g - Senna 17.6 ml BID - Continue omeprazole-sodium bicarbonate (Konvomep) 2-84mg/mL, via G-Tube, qDaily - Continue Home Feeding Regimen (utilize [employer] 1.2 kcal while hospitalized) Increase Beneprotein per nutrition recommendations - Formula: Mix 400mL [employer] 1.2 + 3 scoops Beneprotein + 580 mL water to provide 530 calories per day Assessment & Plan (08/11/2024 6:57 AM CDT): Assessment: Pt with GT dependence, GERD, and chronic constipation with recent fecal impaction Plan: - Daily miralax and senna - Continue omeprazole-sodium bicarbonate (Konvomep) 2-84mg/mL, via G-Tube, qDaily - Continue Home Feeding Regimen (utilize [employer] 1.2 kcal while hospitalized) Increase Beneprotein per nutrition recommendations - Formula: Mix 400mL [employer] 1.2 + 3 scoops Beneprotein + 580 mL water to provide 530 calories per day Assessment & Plan (05/30/2022 10:47 AM INSPECTOR PENETRANT): Assessment: Donna had her ND tube removed yesterday 05/29 and has had two full feeds through her G button so far, yesterday 05/29 at 1600 and today 05/30 at 0820. She is receiving Jevity 300 ml bolus over 1 hour TID. She has tolerated the switch back to G button feeds well so far, with no reports of emesis. Plan: Continue feeds TID. Assessment & Plan (07/24/2017 2:01 PM CDT): Assessment: Donna is G-tube dependent and takes all of her feeds through her tube. She takes nothing by mouth. Home formula is Jevity 1.2, however this is not carried at . Per Nutrition recs from last admission, feeds adjusted to provide same calories with Jevity 1.5. Continuous feeds started on 07/21 at 20 ml/hr, tolerated well. Advanced to bolus feeds over 2 hours yesterday, tolerated well, transitioned to home regimen of 1 hour today. Plan: Formula: Jevity 1.5 with Beneprotein Feed Schedule: 0700: 160 mL formula plus 160 mL water, 290 mL half water/half cranberry juice flush 1200: 160 mL formula plus 160 mL water, 290 mL half water/half cranberry juice flush 1600: 160 mL formula plus 160 mL water, 290 mL half water/half cranberry juice flush 2000: 290 mL half water/half cranberry juice flush - 3 scoops of beneprotein are added to 480 mL of formula (will hold this for now) - Prilosec 20 mg via ET QD - Calcium carbonate 500 via ET QD Assessment & Plan (07/23/2017 1:37 PM CDT): Assessment: Donna is G-tube dependent and takes all of her feeds through her tube. She takes nothing by mouth. Home formula is Jevity 1.2, however this is not carried at . Per Nutrition recs from last admission, feeds adjusted to provide same calories with Jevity 1.5. Continuous feeds started on 07/21 at 20 ml/hr, tolerated well. Advanced to bolus feeds over 2 hours yesterday, tolerated well, transitioned to home regimen of 1 hour today. Plan: - Will consolidate feeds to bolus feeds over 1 hour today - Last Admission Nutrition Plan: Formula: Jevity 1.5 with Beneprotein Feed Schedule: 0700: 160 mL formula plus 160 mL water, 290 mL half water/half cranberry juice flush 1200: 160 mL formula plus 160 mL water, 290 mL half water/half cranberry juice flush 1600: 160 mL formula plus 160 mL water, 290 mL half water/half cranberry juice flush 2000: 290 mL half water/half cranberry juice flush - 3 scoops of beneprotein are added to 480 mL of formula (will hold this for now) - Prilosec 20 mg via ET QD - Calcium carbonate 500 via ET QD Assessment & Plan (07/23/2017 1:08 PM CDT): Assessment: Donna is G-tube dependent and takes all of her feeds through her tube. She takes nothing by mouth. Home formula is Jevity 1.2, however this is not carried at [facility]. Per Nutrition recs from last admission, feeds adjusted to provide same calories with Jevity 1.5. Continuous feeds started yesterday at 20 ml/hr, tolerated well. Will plan to advance to bolus feeds today over 2 hours instead of 1 hour. Plan: - Will consolidate feeds to bolus feeds over 1 hour today - Last Admission Nutrition Plan: Formula: Jevity 1.5 with Beneprotein Feed Schedule: 0700: 160 mL formula plus 160 mL water, 290 mL half water/half cranberry juice flush 1200: 160 mL formula plus 160 mL water, 290 mL half water/half cranberry juice flush 1600: 160 mL formula plus 160 mL water, 290 mL half water/half cranberry juice flush 2000: 290 mL half water/half cranberry juice flush - 3 scoops of beneprotein are added to 480 mL of formula (will hold this for now) - Prilosec 20 mg via ET QD - Calcium carbonate 500 via ET QD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 Proteus, and MRSA UTI. While possible based on Cfu number, colonization less likely given history, UA findings, and presentation. Pt in guarded condition with emesis as well as aspiration episodes overnight and continued seizure clusters despite klonopin bridge. Continues to require hospitalization for IV antibiotics, IVF, and close monitoring. Plan: - Urine Cx with MRSA growth this morning; restart Linezolid 600 MG bid - Continue Cefepime 2g Q8 - Adjust antibiotics based on urine culture and sensitivities (likely unasyn based on prior sensitivities) - SIOBHAN warmer for temps <35 C -- DNR/DNI status. No intubation, no escalation to BIPAP. No chest compressions, no vasopressors, no emergency cardiac drugs. Parents agreeable to fluid resuscitation for hypotension, can give one bolus- contact parents before second bolus. Can give bagged breaths for limited time, but if no improvement then stop. Assessment & Plan (07/31/2024 11:11 AM CDT): Assessment: 23 y/o woman with medical complexity (severe static encephalopathy, spastic quadriplegia, intractable epilepsy, chronic respiratory failure and primary aspiration, chronic moderate malnutrition) with comfort care plan hospitalized with sepsis (hypothermia, bradycardia, neutropenia) and increased seizure frequency. Urinary tract infection (MRSA, Klebsiella, Proteus, Stenotrophomonas) most likely. Bacteremia also possible. Patient in guarded condition hospitalized due to need for IV antibiotics and close monitoring. Plan: - continue Cefepime and discontinue linezolid while waiting urine culture results based on prior cultures and susceptibilities - Will avoid vancomycin for now with previous history of renal failure after vancomycin -Adjust antibiotics based on urine culture and sensitivities -- Start Klonopin bridge 0.5 mg BID for 3 days -SIOBHAN warmer for temps <35 -- DNR/DNI status confirmed with mother of child. No intubation, no escalation to BIPAP. No chest compressions, no vasopressors, no emergency cardiac drugs. Parents agreeable to fluid resuscitation for hypotension, can give one bolus- contact parents before second bolus. Can give bagged breaths for limited time, but if no improvement then stop. Constipation, unspecified constipation type 07/29/2024 08/05/2024 Assessment & Plan (08/02/2024 10:39 AM CDT): Assessment: Patient with fecal impaction and failure of outpatient management Plan: - several large liquid BM, though not yet clear - Restart GoLytely via NG @ 150ml/hr; Continue until output clear, advance up to 400ml/hour - Schedule Zofran - D5 NS @ 78 ml/hr while on golytely clean out - Hold feeds during cleanout. home g-tube feeds: - [employer] 1.4 (once container 350 ml + 650 ml water and calcium and beneprotein) divided into 3 feeds per last GI note on 02/27/2024 with 300 ml of water after each bolus - Nutrition consult considering discrepancy with last nutrition note 12/2023 - Continue home senna - Plan on daily miralax and senna on discharge Assessment & Plan (08/01/2024 1:42 PM CDT): Assessment: Patient with fecal impaction and failure of outpatient management Plan: - Golytely held overnight due to several large liquid BM, though not yet clear - Restart GoLytely via NG @ 200 ml/hr; gentle clean out given present septicemia. Continue until output clear - Schedule Zofran - D5 NS @ 78 ml/hr - Hold feeds during cleanout. home g-tube feeds: - Olga [employer] 1.4 (once container 350 ml + 650 ml water and calcium and beneprotein) divided into 3 feeds per last GI note on 02/27/2024 with 300 ml of water after each bolus - Nutrition consult considering discrepancy with last nutrition note 12/2023 - Continue home senna - Plan on daily miralax and senna on discharge Assessment & Plan (07/31/2024 11:10 AM CDT): Assessment: Patient with fecal impaction and failure of outpatient management Plan: - Golytely via NG @ 200 ml/hr; gentle clean out given present septicemia. Continue until output clear - D5 NS @ 78 ml/hr - NS enema: 400 ml - Hold feeds during cleanout. ome g-tube feeds: - [employer] 1.4 (once container 350 ml + 650 ml water and calcium and beneprotein) divided into 3 feeds per last GI note on 02/27/2024 with 300 ml of water after each bolus - Nutrition consult considering discrepancy with last nutrition note 12/2023 -Continue home senna Assessment & Plan (07/31/2024 7:56 AM CDT): Assessment: Donna is a 23 yo F with history of severe static encephalopathy with quadriplegic cerebral palsy, chronic constipation, gallbladder polyp, MRSA/Pseudomonas UTI, NUBIA, and g-tube dependence hospitalized with fecal impaction and concerns for urinary tract infection. Hypothermic in ED with her baseline bradycardia. Exam with soft abd with notable stool burden and rectal exam with soft stool. Obs series with severe stool burden without obstruction. UA concerning for UTI. Will continue IV antibiotics and follow urine culture. Plan: - Transfer to [facility] Team: Dr. Espinal - Alayna via NG @ 200 ml/hr; gentle clean out given present septicemia - D5 NS @ 78 ml/hr - NS enema: 400 ml - NPO - Home g-tube feeds: - [employer] 1.4 (once container 350 ml + 650 ml water and calcium and beneprotein) divided into 3 feeds per last GI note on 02/27/2024 with 300 ml of water after each bolus - Nutrition consult considering discrepancy with last nutrition note 12/2023 - Continue home straight cath every 3 hours during the day until 2100 and restart in AM at 0500 - Cefepime and linezolid while waiting urine culture results after thorough discussion with pharmacy - Will avoid vancomycin for now with previous history of renal failure after vancomycin - Consider ID consult - VS Q4 - CRM + pulse ox - Strict I&Os - Seizure precautions - Start Klonopin bridge 0.5 mg BID for 3 days - Continue home CPAP 8cm - Continue home meds: Baclofen, calcium carbonate, onfi, vimpat, keppra, provera, konvomep, senna - DNR/DNI status confirmed with mother of child Assessment & Plan (07/30/2024 11:35 AM CDT): Assessment: 23 yo F with history of severe static encephalopathy with quadriplegic cerebral palsy, chronic constipation, gallbladder polyp, MRSA/Pseudomonas UTI, NUBIA, and g-tube dependence presenting with fecal impaction in the setting of 1 week of constipation and concerns for urinary tract infection. Hypothermic in ED with her baseline bradycardia. Exam with soft abd with notable stool burden and rectal exam with soft stool. Obs series with severe stool burden without obstruction. UA concerning for UTI. She was admitted to the GI service and started on bowel clean out and transferred to [facility] for further management of urosepsis and comorbidities. Plan: - Transfer to [facility] Team: Dr. King Neto Catalan via NG @ 200 ml/hr; gentle clean out given present septicemia - D5 NS @ 78 ml/hr - NS enema: 400 ml - NPO - Home g-tube feeds: - [employer] 1.4 (once container 350 ml + 650 ml water and calcium and beneprotein) divided into 3 feeds per last GI note on 02/27/2024 with 300 ml of water after each bolus - Nutrition consult considering discrepancy with last nutrition note 12/2023 - Continue home straight cath every 3 hours during the day until 2100 and restart in AM at 0500 - Cefepime and linezolid while waiting urine culture results after thorough discussion with pharmacy - Will avoid vancomycin for now with previous history of renal failure after vancomycin - Consider ID consult - VS Q4 - CRM + pulse ox - Strict I&Os - Seizure precautions - Continue home CPAP 8cm - Continue home meds: Baclofen, calcium carbonate, onfi, vimpat, keppra, provera, konvomep, senna - DNR/DNI status confirmed with mother of child Assessment & Plan (07/29/2024 11:27 PM CDT): Assessment: 23 yo F with history of severe static encephalopathy with quadriplegic cerebral palsy, chronic constipation, gallbladder polyp, MRSA/Pseudomonas UTI, NUBIA, and g-tube dependence presenting with fecal impaction in the setting of 1 week of constipation and concerns for urinary tract infection. Hypothermic in ED with her baseline bradycardia. Exam with soft abd with notable stool burden and rectal exam with soft stool. Obs series with severe stool burden without obstruction. UA concerning for UTI. Requires inpatient admission for further management of fecal impaction and concern of urinary tract infection. Plan: - Admit to GI; Dr Tolliver - Two doses of miralax tonight and consider golytley tomorrow - Continue home g-tube feeds: - [employer] 1.4 (once container 350 ml + 650 ml water and calcium and beneprotein) divided into 3 feeds per last GI note on 02/27/2024 with 300 ml of water after each bolus - Nutrition consult considering discrepancy with last nutrition note 12/2023 - Continue home straight cath every 3 hours during the day until 2100 and restart in AM at 0500 - Will place PIV - Will start cefepime and linezolid while waiting urine culture results after thorough discussion with pharmacy - Low amounts of tyramine in Atempo, however, will monitor for signs of hypertension from MOAi - Will avoid vancomycin for now with previous history of renal failure after vancomycin - ID consult in the morning - VS Q4 - CRM + pulse ox - Strict I&Os - Seizure precautions - Continue home CPAP 8cm - Continue home meds: Baclofen, calcium carbonate, onfi, vimpat, keppra, provera, konvomep, senna - DNR status confirmed with mother of child Electrolyte abnormality 05/27/202307/09 Assessment & Plan (05/30/2023 7:27 PM INSPECTOR PENETRANT): Assessment: Labs concerning for hypokalemia, metabolic alkalosis (resolved), hypocalcemia (normal in setting of hypoalbuminemia). Likely secondary to prolonged GI clean out which was stopped on 05/27 and restart feeds, expect these abnormalities to improve with restarting feeds. Plan: - Continue home feeds - Daily electrolytes - hypokalemia resolved with supplementation on 05/29 but decreased again today Assessment & Plan (05/29/2023 7:27 AM INSPECTOR PENETRANT): Assessment: Labs concerning for hypokalemia, metabolic alkalosis, hypocalcemia. Likely secondary to prolonged GI clean out which was stopped on 05/27 and restart feeds, expect these abnormalities to improve with restarting feeds. Plan: -Resume home feeds -Daily BMP - hypokalemia resolved with supplementation Assessment & Plan (05/28/2023 6:18 PM INSPECTOR PENETRANT): Assessment: Labs concerning for hypokalemia, metabolic alkalosis, hypocalcemia. Likely secondary to prolonged GI clean out which was stopped on 05/27 and restart feeds, expect these abnormalities to improve with restarting feeds. Plan: -Resume home feeds -Daily BMP switched to [facility] for tomorrow. - KCl 20 mEq BID added. Assessment & Plan (05/27/2023 6:33 PM INSPECTOR PENETRANT): Assessment: Labs concerning for hypokalemia, metabolic alkalosis, hypocalcemia. Likely secondary to prolonged GI clean out, will stop clean out today and restart feeds, expect these abnormalities to improve with restarting feeds. Plan: -Resume home feeds -Daily BMP Constipation 05/22/2023 06/19/2023 Assessment & Plan (05/30/2023 12:00 PM INSPECTOR PENETRANT): Assessment: Constipation present on admission and Golytely completed 05/27. Having stools at this time that only have stool specs. Plan: -Resume home feeds -Miralax QD and senna BID per home regime -Okay for parent to bring kefir from home Assessment & Plan (05/29/2023 7:27 AM INSPECTOR PENETRANT): Assessment: Constipation present on admission and Golytely completed 05/27. Having stools at this time that only have stool specs. Plan: -Resume home feeds -Miralax QD and senna BID per home regime -Okay for parent to bring kefir from home Assessment & Plan (05/28/2023 6:18 PM INSPECTOR PENETRANT): Assessment: Constipation present on admission and Golytely completed 05/27. Having stools at this time that only have stool specs. Plan: -Resume home feeds -Miralax QD and senna BID per home regime -Okay for parent to bring kefir from home Assessment & Plan (05/27/2023 6:30 PM INSPECTOR PENETRANT): Assessment: Constipation present on admission and Golytely completed 05/27. Having stools at this time that only have stool specs. Plan: -Resume home feeds -Miralax QD and senna BID per home regime -Okay for parent to bring kefir from home Assessment & Plan (05/26/2023 6:15 PM INSPECTOR PENETRANT): Assessment: Constipation present and Golytely currently running at 400 ml/hr. Having stools at this time. Plan: Holding feeds while clean out in progress Golytely clean out- start at 50 ml/hr via G-tube Escalate rate by 50 ml/hr every hr to a goal of 400 ml/hr End goal- clear stools - Continue IV Fluids when on the clean out - Bowel regimen after cleanout- MiraLAX 1 cap BID + Senna daily Assessment & Plan (05/25/2023 12:39 PM INSPECTOR PENETRANT): Assessment: Constipation present and Golytely currently running at 400 ml/hr. Having stools at this time. Plan: Holding feeds while clean out in progress Golytely clean out- start at 50 ml/hr via G-tube Escalate rate by 50 ml/hr every hr to a goal of 400 ml/hr End goal- clear stools - Can consider Sodium Phos Fleets enema if no results at 4 hr marcelle after starting GoLytely - Continue IV Fluids when on the clean out - Bowel regimen after cleanout- MiraLAX 1 cap BID + Senna daily Assessment & Plan (05/24/2023 7:29 AM INSPECTOR PENETRANT): Assessment: Constipation present and Golytely currently running at 400 ml/hr. Having stools at this time. Plan: Holding feeds while clean out in progress Golytely clean out- start at 50 ml/hr via G-tube Escalate rate by 50 ml/hr every hr to a goal of 400 ml/hr End goal- clear stools - Can consider Sodium Phos Fleets enema if no results at 4 hr marcelle after starting GoLytely - Continue IV Fluids when on the clean out - Bowel regimen after cleanout- MiraLAX 1 cap BID + Senna daily Assessment & Plan (05/23/2023 11:30 AM INSPECTOR PENETRANT): Assessment: Donna is a 22 year old complex medical history who presents with concerns of agitation and discomfort in the setting of abdominal distention and infrequent bowel movements. She otherwise appears at her baseline without increasing oxygen requirements or other signs of infection including change in urine quality or quantity. Additionally, screening labs in the ED were not concerning for infection. She is hypothermic however this is baseline temperature instability for her. Based on clinical signs of constipation as well as KUB findings of moderate stool burden, patient requires admission for further observation as well as for initiation of a more robust bowel regimen to encourage stooling. Plan: Holding feeds while clean out in progress Golytely clean out- start at 50 ml/hr via G-tube Escalate rate by 50 ml/hr every hr to a goal of 400 ml/hr End goal- clear stools - Can consider Sodium Phos Fleets enema if no results at 4 hr marcelle after starting GoLytely - Continue IV Fluids when on the clean out - Bowel regimen after cleanout- MiraLAX 1 cap BID + Senna daily Assessment & Plan (05/22/2023 12:12 PM INSPECTOR PENETRANT): Assessment: Donna is a 22 year old complex medical history who presents with concerns of agitation and discomfort in the setting of abdominal distention and infrequent bowel movements. She otherwise appears at her baseline without increasing oxygen requirements or other signs of infection including change in urine quality or quantity. Additionally, screening labs in the ED were not concerning for infection. She is hypothermic however this is baseline temperature instability for her. Based on clinical signs of constipation as well as KUB findings of moderate stool burden, patient requires admission for further observation as well as for initiation of a more robust bowel regimen to encourage stooling. Plan: Continue home feeds - 330ml bolus feeds TID with jevity 1.5, beneprotein, and water mixture as per diet instructions also with four times daily 250ml water flush - Will add miralax 4x/day with scheduled water flushes - continue other home meds including senna BID and omeprazole QD - consult GI Agitation 05/20/2023 07/05/2023 Assessment & Plan (05/30/2023 12:00 PM INSPECTOR PENETRANT): Assessment: Donna is a 22 year old complex medical history who presents with concerns of agitation and discomfort in the setting of abdominal distention and infrequent bowel movements. She otherwise appears at her baseline without increasing oxygen requirements or other signs of infection including change in urine quality or quantity. Additionally, screening labs in the ED were not concerning for infection. She is hypothermic however this is baseline temperature instability for her. Based on clinical signs of constipation as well as KUB findings of moderate stool burden, patient requires admission for further observation as well as for initiation of a more robust bowel regimen to encourage stooling. Plan: LIMITED CODE - albuterol prn with bronchial hygiene - CRM, VS Q4H - Continue home meds: Baclofen 10mg BID, Vimpat 100mg BID, Keppra 500mg BID, clobazam TID prn for spasms and ativan prn for seizures >5min - Tylenol q6h prn for pain - Peter hugger for temp <95F Assessment & Plan (05/29/2023 7:11 PM INSPECTOR PENETRANT): Assessment: Donna is a 22 year old complex medical history who presents with concerns of agitation and discomfort in the setting of abdominal distention and infrequent bowel movements. She otherwise appears at her baseline without increasing oxygen requirements or other signs of infection including change in urine quality or quantity. Additionally, screening labs in the ED were not concerning for infection. She is hypothermic however this is baseline temperature instability for her. Based on clinical signs of constipation as well as KUB findings of moderate stool burden, patient requires admission for further observation as well as for initiation of a more robust bowel regimen to encourage stooling. Plan: LIMITED CODE - albuterol prn with bronchial hygiene - CRM, VS Q4H - Continue home meds: Baclofen 10mg BID, Vimpat 100mg BID, Keppra 500mg BID, clobazam TID prn for spasms and ativan prn for seizures >5min - Tylenol q6h prn for pain - Peter hugger for temp <95F Assessment & Plan (05/28/2023 6:38 AM INSPECTOR PENETRANT): Assessment: Donna is a 22 year old complex medical history who presents with concerns of agitation and discomfort in the setting of abdominal distention and infrequent bowel movements. She otherwise appears at her baseline without increasing oxygen requirements or other signs of infection including change in urine quality or quantity. Additionally, screening labs in the ED were not concerning for infection. She is hypothermic however this is baseline temperature instability for her. Based on clinical signs of constipation as well as KUB findings of moderate stool burden, patient requires admission for further observation as well as for initiation of a more robust bowel regimen to encourage stooling. Plan: LIMITED CODE - albuterol prn with bronchial hygiene - CRM, VS Q4H - Continue home meds: Baclofen 10mg BID, Vimpat 100mg BID, Keppra 500mg BID, clobazam TID prn for spasms and ativan prn for seizures >5min - Tylenol q6h prn for pain - Peter hugger for temp <95F Assessment & Plan (05/27/2023 1:11 PM INSPECTOR PENETRANT): Assessment: Donna is a 22 year old complex medical history who presents with concerns of agitation and discomfort in the setting of abdominal distention and infrequent bowel movements. She otherwise appears at her baseline without increasing oxygen requirements or other signs of infection including change in urine quality or quantity. Additionally, screening labs in the ED were not concerning for infection. She is hypothermic however this is baseline temperature instability for her. Based on clinical signs of constipation as well as KUB findings of moderate stool burden, patient requires admission for further observation as well as for initiation of a more robust bowel regimen to encourage stooling. Plan: LIMITED CODE - albuterol prn with bronchial hygiene - CRM, VS Q4H - Continue home meds: Baclofen 10mg BID, Vimpat 100mg BID, Keppra 500mg BID, clobazam TID prn for spasms and ativan prn for seizures >5min - Tylenol q6h prn for pain - Peter hugger for temp <95F Assessment & Plan (05/26/2023 6:20 PM INSPECTOR PENETRANT): Assessment: Donna is a 22 year old complex medical history who presents with concerns of agitation and discomfort in the setting of abdominal distention and infrequent bowel movements. She otherwise appears at her baseline without increasing oxygen requirements or other signs of infection including change in urine quality or quantity. Additionally, screening labs in the ED were not concerning for infection. She is hypothermic however this is baseline temperature instability for her. Based on clinical signs of constipation as well as KUB findings of moderate stool burden, patient requires admission for further observation as well as for initiation of a more robust bowel regimen to encourage stooling. Plan: LIMITED CODE - albuterol prn with bronchial hygiene - CRM, VS Q4H - Continue home meds: Baclofen 10mg BID, Vimpat 100mg BID, Keppra 500mg BID, clobazam TID prn for spasms and ativan prn for seizures >5min - Tylenol q6h prn for pain - Peter hugger for temp <95F Assessment & Plan (05/25/2023 4:41 PM INSPECTOR PENETRANT): Assessment: Donna is a 22 year old complex medical history who presents with concerns of agitation and discomfort in the setting of abdominal distention and infrequent bowel movements. She otherwise appears at her baseline without increasing oxygen requirements or other signs of infection including change in urine quality or quantity. Additionally, screening labs in the ED were not concerning for infection. She is hypothermic however this is baseline temperature instability for her. Based on clinical signs of constipation as well as KUB findings of moderate stool burden, patient requires admission for further observation as well as for initiation of a more robust bowel regimen to encourage stooling. Plan: LIMITED CODE CPAP continued with respiratory - CA and vest daily q 8 hours - albuterol prn with bronchial hygiene - CRM, VS Q4H - Continue home meds: Baclofen 10mg BID, Vimpat 100mg BID, Keppra 500mg BID, clobazam TID prn for spasms and ativan prn for seizures >5min - Tylenol q6h prn for pain - Peter hugger for temp <95F Assessment & Plan (05/24/2023 11:00 AM INSPECTOR PENETRANT): Assessment: Donna is a 22 year old complex medical history who presents with concerns of agitation and discomfort in the setting of abdominal distention and infrequent bowel movements. She otherwise appears at her baseline without increasing oxygen requirements or other signs of infection including change in urine quality or quantity. Additionally, screening labs in the ED were not concerning for infection. She is hypothermic however this is baseline temperature instability for her. Based on clinical signs of constipation as well as KUB findings of moderate stool burden, patient requires admission for further observation as well as for initiation of a more robust bowel regimen to encourage stooling. Plan: LIMITED CODE CPAP continued with respiratory following. If saturating well can move to open mask - CA and vest daily q 8 hours - albuterol prn with bronchial hygiene - CRM, VS Q4H - Continue home meds: Baclofen 10mg BID, Vimpat 100mg BID, Keppra 500mg BID, clobazam TID prn for spasms and ativan prn for seizures >5min - Tylenol q6h prn for pain - Peter hugger for temp <95F Assessment & Plan (05/23/2023 6:42 AM INSPECTOR PENETRANT): Assessment: Donna is a 22 year old complex medical history who presents with concerns of agitation and discomfort in the setting of abdominal distention and infrequent bowel movements. She otherwise appears at her baseline without increasing oxygen requirements or other signs of infection including change in urine quality or quantity. Additionally, screening labs in the ED were not concerning for infection. She is hypothermic however this is baseline temperature instability for her. Based on clinical signs of constipation as well as KUB findings of moderate stool burden, patient requires admission for further observation as well as for initiation of a more robust bowel regimen to encourage stooling. Plan: LIMITED CODE Room air with O2 as needed while awake, CPAP 8 at night - CA and vest daily q 8 hours - albuterol prn with bronchial hygiene - CRM, VS Q4H - Continue home meds: Baclofen 10mg BID, Vimpat 100mg BID, Keppra 500mg BID, clobazam TID prn for spasms and ativan prn for seizures >5min - Tylenol q6h prn for pain - Peter hugger for temp <95F Assessment & Plan (05/22/2023 12:12 PM INSPECTOR PENETRANT): Assessment: Donna is a 22 year old complex medical history who presents with concerns of agitation and discomfort in the setting of abdominal distention and infrequent bowel movements. She otherwise appears at her baseline without increasing oxygen requirements or other signs of infection including change in urine quality or quantity. Additionally, screening labs in the ED were not concerning for infection. She is hypothermic however this is baseline temperature instability for her. Based on clinical signs of constipation as well as KUB findings of moderate stool burden, patient requires admission for further observation as well as for initiation of a more robust bowel regimen to encourage stooling. Plan: LIMITED CODE Room air with O2 as needed while awake, CPAP 8 at night - CA and vest daily q 8 hours - albuterol prn with bronchial hygiene - CRM, VS Q4H - Continue home meds: Baclofen 10mg BID, Vimpat 100mg BID, Keppra 500mg BID, clobazam TID prn for spasms and ativan prn for seizures >5min - Tylenol q6h prn for pain - Peter bañuelos for temp <95F Assessment & Plan (05/21/2023 1:37 AM INSPECTOR PENETRANT): Assessment: Donna is a 22 year old complex medical history who presents with concerns of agitation and discomfort in the setting of abdominal distention and infrequent bowel movements. She otherwise appears at her baseline without increasing oxygen requirements or other signs of infection including change in urine quality or quantity. Additionally, screening labs in the ED were not concerning for infection. She is hypothermic however this is baseline temperature instability for her. Based on clinical signs of constipation as well as KUB findings of moderate stool burden, patient requires admission for further observation as well as for initiation of a more robust bowel regimen to encourage stooling. Plan: Admit to [facility] - Dr. Conway LIMITED CODE CVS/Resp Room air with O2 as needed while awake, CPAP 8 at night - CA and vest daily and prn - albuterol prn with bronchial hygiene - CRM, VS Q4H FEN/GI Continue home feeds - 330ml bolus feeds TID with jevity 1.5, beneprotein, and water mixture as per diet instructions also with four times daily 250ml water flush - Will add miralax 4x/day with scheduled water flushes - continue other home meds including senna BID and omeprazole QD Neuro - Continue home meds: Baclofen 10mg BID, Vimpat 100mg BID, Keppra 500mg BID, clobazam TID prn for spasms and ativan prn for seizures >5min - Tylenol q6h prn for pain - Peter hugger for temp <95F Urology Scheduled cath q3h during the day Bladder irrigation in the morning with first cath of the day Infectious Diseases Follow up results of urine culture and treat if indicated Access: PIV, GT, urine-ostomy Aspiration pneumonia of left lower lobe 03/11/2023 08/05/2024 Assessment & Plan (03/15/2023 7:05 AM INSPECTOR PENETRANT): Assessment: 22 y/o female with medical complexity (severe static encephalopathy, spastic quadriplegia, intractable epilepsy, chronic respiratory failure and primary aspiration) with comfort care plan hospitalized with left lower lobe pneumonia and acute on chronic respiratory failure . Aspiration pneumonia most likely given pt's history. Sputum aspirate growing stenotrophomonas and proteus vulgaris. Plan: - Continue Cipro enterally for total of 7 days - Maintain O2 saturations >90% when awake - CPAP at night - Continue home tube feedings - I/Os, Q8 vitals - Continue home medications. - Bronchial vest BID - Suppository if no bowel movement for 48hr - Notify Palliative Care of pt's hospitalization Assessment & Plan (03/13/2023 2:38 PM INSPECTOR PENETRANT): Assessment: 22 y/o female with medical complexity (severe static encephalopathy, spastic quadriplegia, intractable epilepsy, chronic respiratory failure and primary aspiration) with comfort care plan hospitalized with left lower lobe pneumonia and acute on chronic respiratory failure . Aspiration pneumonia most likely given pt's history. Sputum aspirate growing stenotrophomonas and proteus vulgaris. Plan: - Discontinued Doxycycline and will continue on Cipro enterally for total of 7 days - Suppository tonight if no bowel movement - Maintain O2 saturations >90% when awake - CPAP at night - Continue home tube feedings - I/Os, Q8 vitals - Continue home medications. - Bronchial vest BID - Sputum culture - awaiting identification of organism. - Notify Palliative Care of pt's hospitalization Assessment & Plan (03/12/2023 5:56 PM INSPECTOR PENETRANT): Assessment: 22 y/o female with medical complexity (severe static encephalopathy, spastic quadriplegia, intractable epilepsy, chronic respiratory failure and primary aspiration) with comfort care plan hospitalized with left lower lobe pneumonia and acute on chronic respiratory failure . Aspiration pneumonia most likely given pt's history. Potential organisms include MRSA, proteus, strep pneumo, GAS, as well as oral anaerobes given prior colonization pattern. Aspiration pneumonitis less likely with duration of symptoms. Community acquired pneumonia possible though less likely. Aspirate culture currently growing heavy gram + cocci. Possibly MRSA given previous trach aspirate cultures. Plan: - Doxycycline 100 mg q12hrs enterally to cover for MRSA -If pt clinically worsens, expand antibiotic coverage - Maintain O2 saturations >90% when awake - CPAP at night - Continue home tube feedings - I/Os, Q8 vitals - Continue home medications. - Bronchial vest 4 times daily - Sputum culture - awaiting identification of organism. -Notify Palliative Care of pt's hospitalization Assessment & Plan (03/11/2023 4:49 PM INSPECTOR PENETRANT): Assessment: 22 yo with complex PMHx and 12 days of oxygen desaturation and cough leading to an episode of emesis yesterday evening. Pt received CXR in the ED suggestive of LLL pneumonia. Differentials include aspiration given the coughing and emesis, less likely given left lower lobe findings instead of right lower lobe. Possible underlying viral URI as well although less significant at this time. Respiratory culture from 02/02/23 grew proteus and MRSA. Pt being admitted for observation overnight while on antibiotics and with daily oxygen desaturations. Plan: - Per pulmonology treating with doxycycline 100 mg q12hrs enterally - Maintain O2 saturations >90% when awake. - CPAP at night - Continue home tube feedings - I/Os, Q8 vitals - Continue home medications. - Bronchial vest 4 times daily - Sputum culture pending Acute respiratory failure with hypoxia 02/02/2023 08/05/2024 Niya cystitis 01/12/2023 08/05/2024 Assessment & Plan (01/15/2023 1:36 PM CDT): Assessment: Urine culture growing niya. Given pt developmental status, it is difficult to determine if this is symptomatic or not. Plan: Diflucan 200 mg QDay for 14 days (01/12-) Assessment & Plan (01/14/2023 6:12 PM CDT): Assessment: Urine culture growing niya. Given pt developmental status, it is difficult to determine if this is symptomatic or not. Plan: Diflucan 200 mg QDay for 14 days () Assessment & Plan (01/13/2023 6:04 PM CDT): Assessment: Urine culture growing niya. Given pt developmental status, it is difficult to determine if this is symptomatic or not. Plan: Diflucan 200 mg QDay for 14 days () Assessment & Plan (01/12/2023 2:37 PM CDT): Assessment: Urine culture growing niya. Given pt developmental status, it is difficult to determine if this is symptomatic or not. Plan: -Diflucan 200 mg QDay for 14 days () Rhinovirus infection 01/11/202308/05/ 025 Assessment & Plan (01/15/2023 1:36 PM CDT): Assessment: Hayli was tested for URI on 01/10 out of concerns for rhinorrhea. RPP confirmed Rhino/entero Plan: Continue supportive care while treating bacterial/fungal infections. Assessment & Plan (01/14/2023 6:12 PM CDT): Assessment: Hayli was tested for URI's on 01/10 out of concerns for rhinorrhea. RPP confirmed Rhino/entero Plan: Continue supportive care while treating bacterial/fungal infections. Assessment & Plan (01/13/2023 6:01 PM CDT): Assessment: Hayli was tested for URI's on 01/10 out of concerns for rhinorrhea. RPP confirmed Rhino/entero Plan: Continue supportive care while treating bacterial/fungal infections. Assessment & Plan (01/12/2023 2:36 PM CDT): Assessment: Hayli was tested for URI's on 01/10 out of concerns for rhinorrhea. RPP confirmed Rhino/entero Plan: Continue supportive care while treating bacterial/fungal infections. Acute on chronic respiratory failure with hypoxia 01/03/2023 01/09/2023 Assessment & Plan (01/08/2023 9:01 PM CDT): Assessment: Donna is a 22 y/o F with complex medical hx including spastic CP, severe static encephalopathy, chronic respiratory failure secondary to static encephalopathy, g-tube dependence, and epilepsy who presents with acute on chronic hypoxic respiratory failure secondary to aspiration pneumonia. CT chest with concerns for aspiration pneumonia vs aspiration pneumonitis. Soft tissue swelling possibly peribronchial thickening versus less likely fibrosing mediastinitis without airway narrowing. Likely this is CAP, and with discussion with ID, continuing with current antibiotics. Other causes of acute deterioration of respiratory status should include PE, although less likely due to reassuring CT findings. Patient clinically stable, at goal for her O2 saturation with non-rebreather. Requires inpatient admission for further management of respiratory failure. Plan: Respiratory: - continuous CPAP for comfort - Home oxygen is RA during day and CPAP 8L at 8 PEEP at night - Continous pulse ox - CRM monitors - per pulm, increase bronchial hygiene with vest and albuterol BID if sats <90% - consult to palliative, footprints, and ID, appreciate recommendations - CBC every other day FEN/GI: - decreased D5 NS and increasing G-tube feeds today - Strict I/O's - continue home meds: centrum, Konvomep, senna, ducolax PRN - daily BMP - consult nutrition, ongoing recommendations appreciated. Heme: - Hx of pancytopenia - follows with OP heme/onc - CBC monitor every other day ID: - Bcx no growth in 24hs; Ucx negative - Discontinued cefepime on 01/07, Linezolid and Clindamycin on 01/08 - Converted to enteral Amoxiclav on 01/08, will continue for 2 weeks total - Consult ID given hx of MDRO UTI, pseudomonas, and concerns for aspiration in setting of neutropenia - Plan to convert to Unasyn on 01/08 per pharmacy recommendations. : Pt with DAVID -Straight cath via DAVID qd Neuro: - s/p Ativan x 1 in ED for concerns of increased seizures - Discussed with Neurology. Recommended Keppra loading dose of 40mg/kg if persistent seizures since it is less sedating; If she has 3 or more seizures in a 1-hr period, would consider giving another load, please give 40mg/kg of Keppra - Klonopin bridge started in ED - Klonopin 0.125 mg BID x 3 days, now Klonipin 0.5 BID for total 5 days, ending on 01/07 - Continue home meds: onfi, vimpat, keppra CODE STATUS: Review Dr. Harry's pallative care consult from 01/05 for specifics about DNR Limited status. Assessment & Plan (01/07/2023 7:28 PM CDT): Assessment: Donna is a 22 y/o F with complex medical hx including spastic CP, severe static encephalopathy, chronic respiratory failure secondary to static encephalopathy, g-tube dependence, and epilepsy who presents with acute on chronic hypoxic respiratory failure secondary to aspiration pneumonia. CT chest with concerns for aspiration pneumonia vs aspiration pneumonitis. Soft tissue swelling possibly peribronchial thickening versus less likely fibrosing mediastinitis without airway narrowing. Likely this is CAP, and with discussion with ID, continuing with current antibiotics. Other causes of acute deterioration of respiratory status should include PE, although less likely due to reassuring CT findings. Patient clinically stable, at goal for her O2 saturation with non-rebreather. Requires inpatient admission for further management of respiratory failure. Plan: Respiratory: - continuous CPAP for comfort - Home oxygen is RA during day and CPAP 8L at 8 PEEP at night - Continous pulse ox - CRM monitors - per pulm, increase bronchial hygiene with vest and albuterol BID if sats <90% - consult to palliative, footprints, and ID, appreciate recommendations - CBC every other day FEN/GI: - decreased D5 NS and increasing G-tube feeds today - Strict I/O's - continue home meds: centrum, Konvomep, senna, ducolax PRN - daily BMP - consult nutrition, ongoing recommendations appreciated. Heme: - Hx of pancytopenia - follows with OP heme/onc - CBC monitor every other day ID: - Bcx no growth in 24hs; Ucx negative - Continue Clindamycin 600 mg IV q8 for anaerobic coverage - Continue Linezolid for MRSA coverage in setting of neutropenia - Discontinued cefepime on 01/07 - Consult ID given hx of MDRO UTI, pseudomonas, and concerns for aspiration in setting of neutropenia - Plan to convert to Unasyn on 01/08 per pharmacy recommendations. : Pt with DAVID -Straight cath via DAVID qd Neuro: - s/p Ativan x 1 in ED for concerns of increased seizures - Discussed with Neurology. Recommended Keppra loading dose of 40mg/kg if persistent seizures since it is less sedating; If she has 3 or more seizures in a 1-hr period, would consider giving another load, please give 40mg/kg of Keppra - Klonopin bridge started in ED - Klonopin 0.125 mg BID x 3 days, now Klonipin 0.5 BID for total 5 days, ending on 01/07 - Continue home meds: onfi, vimpat, keppra CODE STATUS: Review Dr. Harry's pallative care consult from 01/05 for specifics about DNR Limited status. Assessment & Plan (01/06/2023 6:45 PM CDT): Assessment: Donna is a 22 y/o F with complex medical hx including spastic CP, severe static encephalopathy, chronic respiratory failure secondary to static encephalopathy, g-tube dependence, and epilepsy who presents with acute on chronic hypoxic respiratory failure secondary to aspiration pneumonia. CT chest with concerns for aspiration pneumonia vs aspiration pneumonitis. Soft tissue swelling possibly peribronchial thickening versus less likely fibrosing mediastinitis without airway narrowing. Likely this is CAP, and with discussion with ID, continuing with current antibiotics. Other causes of acute deterioration of respiratory status should include PE, although less likely due to reassuring CT findings. Patient clinically stable, at goal for her O2 saturation with non-rebreather. Requires inpatient admission for further management of respiratory failure. Plan: Respiratory: - continuous CPAP for comfort - Home oxygen is RA during day and CPAP 8L at 8 PEEP at night - Continous pulse ox - CRM monitors - per pulm, increase bronchial hygiene with vest and albuterol BID if sats <90% - consult to palliative, footprints, and ID, appreciate recommendations - CBC every other day FEN/GI: - decreased D5 NS and increasing G-tube feeds today - Strict I/O's - continue home meds: centrum, Konvomep, senna, ducolax PRN - daily BMP - consult nutrition, ongoing recommendations appreciated. Heme: - Hx of pancytopenia - follows with OP heme/onc - CBC monitor every other day ID: - Bcx no growth in 24hs; Ucx negative - Continue Clindamycin 600 mg IV q8 for anaerobic coverage - Continue Linezolid for MRSA coverage in setting of neutropenia - Continue Cefepime 2g 100/hr q8h - Consult ID given hx of MDRO UTI, pseudomonas, and concerns for aspiration in setting of neutropenia : Pt with DAVID -Straight cath via DAVID qd Neuro: - s/p Ativan x 1 in ED for concerns of increased seizures - Discussed with Neurology. Recommended Keppra loading dose of 40mg/kg if persistent seizures since it is less sedating; If she has 3 or more seizures in a 1-hr period, would consider giving another load, please give 40mg/kg of Keppra - Klonopin bridge started in ED - Klonopin 0.125 mg BID x 3 days, now Klonipin 0.5 BID for total 5 days, ending on 01/07 - Continue home meds: onfi, vimpat, keppra CODE STATUS: Review Dr. Harry's pallative care consult from 01/05 for specifics about DNR Limited status. Assessment & Plan (01/05/2023 8:29 PM CDT): Assessment: Donna is a 22 y/o F with complex medical hx including spastic CP, severe static encephalopathy, chronic respiratory failure secondary to static encephalopathy, g-tube dependence, and epilepsy who presents with acute on chronic hypoxic respiratory failure secondary to aspiration pneumonia. CT chest with concerns for aspiration pneumonia vs aspiration pneumonitis. Soft tissue swelling possibly peribronchial thickening versus less likely fibrosing mediastinitis without airway narrowing. Likely this is CAP, and with discussion with ID, continuing with current antibiotics. Other causes of acute deterioration of respiratory status should include PE, although less likely due to reassuring CT findings. Patient clinically stable, at goal for her O2 saturation with non-rebreather. Requires inpatient admission for further management of respiratory failure. Plan: Respiratory: - Cont nonrebreather at 15L, attempt CPAP trials as pt clinically improves. - Home oxygen is RA during day and CPAP 8 at night - Continous pulse ox - CRM monitors - per pulm, increase bronchial hygiene with vest and albuterol BID if sats <90% - consult to palliative, footprints, and ID, appreciate recommendations - daily CBC FEN/GI: - mIVF @ 88 mL/hr - S/p Mag Sulfate 1000mg in ED - NPO, hold home feeds given clinical status - Strict I/O's - continue home meds: centrum, Konvomep, senna, ducolax PRN - daily BMP - consult nutrition Heme: - Hx of pancytopenia - follows with OP heme/onc - monitor CBC daily ID: - Bcx no growth in 24hs; Ucx negative - s/p one dose Rocephin 01/02 - d/c Cefepime 2000mg q8 hrs for pseudomonas coverage on 01/02 - Continue Clindamycin 600 mg IV q8 for anaerobic coverage - Continue Linezolid for MRSA coverage in setting of neutropenia - Consult ID given hx of MDRO UTI, pseudomonas, and concerns for aspiration in setting of neutropenia - given flu vaccine : Pt with DAVID -Straight cath via DAVID qd Neuro: - s/p Ativan x 1 in ED for concerns of increased seizures - Discussed with Neurology. Recommended Keppra loading dose of 40mg/kg if persistent seizures since it is less sedating; If she has 3 or more seizures in a 1-hr period, would consider giving another load, please give 40mg/kg of Keppra - Klonopin bridge started in ED - Klonopin 0.125 mg BID x 3 days, now Klonipin 0.5 BID for total 5 days, ending on 01/07 - Continue home meds: onfi, vimpat, keppra CODE STATUS: DNR with comfort. No electricity, compressions, rescue breathing, or cardiac meds. Reviewed and confirmed with family on admission. Assessment & Plan (01/04/2023 5:57 PM CDT): Assessment: Donna is a 22 y/o F with complex medical hx including spastic CP, severe static encephalopathy, chronic respiratory failure secondary to static encephalopathy, g-tube dependence, and epilepsy who presents with acute on chronic hypoxic respiratory failure secondary to aspiration pneumonia. CT chest with concerns for aspiration pneumonia vs aspiration pneumonitis. Soft tissue swelling possibly peribronchial thickening versus less likely fibrosing mediastinitis without airway narrowing. Likely this is CAP, and with discussion with ID, continuing with current antibiotics. Other causes of acute deterioration of respiratory status should include PE, although less likely due to reassuring CT findings. Patient clinically stable, at goal for her O2 saturation with CPAP. Requires inpatient admission for further management of respiratory failure. Plan: Respiratory: - Cont CPAP PEEP 8 - Home oxygen is RA during day and CPAP 8 at night - If does not tolerate CPAP, will start non-rebreather mask 15L - Continous pulse ox - CRM monitors - per pulm, increase bronchial hygiene with vest and albuterol BID if sats <90% - consult to palliative, footprints, and ID, appreciate recommendations - daily CBC FEN/GI: - mIVF @ 88 mL/hr - S/p Mag Sulfate 1000mg in ED - NPO, hold home feeds given clinical status - Strict I/O's - continue home meds: centrum, Konvomep, senna, ducolax PRN - daily BMP - consult nutrition Heme: - Hx of pancytopenia - follows with OP heme/onc - monitor CBC daily ID: - Bcx no growth in 24hs; Ucx negative - s/p one dose Rocephin 01/02 - d/c Cefepime 2000mg q8 hrs for pseudomonas coverage on 01/02 - Continue Clindamycin 600 mg IV q8 for anaerobic coverage - Continue Linezolid for MRSA coverage in setting of neutropenia - Consult ID given hx of MDRO UTI, pseudomonas, and concerns for aspiration in setting of neutropenia - given flu vaccine : Pt with DAVID -Straight cath via DAVID qd Neuro: - s/p Ativan x 1 in ED for concerns of increased seizures - Discussed with Neurology. Recommended Keppra loading dose of 40mg/kg if persistent seizures since it is less sedating; If she has 3 or more seizures in a 1-hr period, would consider giving another load, please give 40mg/kg of Keppra - Klonopin bridge started in ED - Klonopin 0.125 mg BID x 3 days, now Klonipin 0.5 BID for total 5 days, ending on 01/07 - Continue home meds: onfi, vimpat, keppra CODE STATUS: DNR with comfort. No electricity, compressions, rescue breathing, or cardiac meds. Reviewed and confirmed with family on admission. Assessment & Plan (01/03/2023 6:22 AM CDT): Assessment: Donna is a 22 y/o F with complex medical hx including spastic CP, severe static encephalopathy, chronic respiratory failure secondary to static encephalopathy, g-tube dependence, and epilepsy who presents with acute hypoxic respiratory failure likely secondary to aspiration pneumonia. CT chest with concerns for aspiration pnemonia. Should consider viral PNA vs CAP as well. Other causes of acute deterioration of respiratory status should include PE, although less likely due to reassuring CT findings. Patient clinically stable, currently saturating 98% on a non rebreather at 15 L. Transitioned to home CPAP. Requires inpatient admission for further management of respiratory failure. Plan: Admit to general medicine [facility] team, Dr Pete Respiratory: - Cont CPAP PEEP 8 without O2 bled in - Home oxygen is RA during day and CPAP 8 at night - If does not tolerate CPAP, will start non-rebreather mask 15L - Continous pulse ox - CRM monitors - Increase bronchial hygiene: vest and albuterol q4 hours FEN/GI: - mIVF @ 88 mL/hr - S/p Mag Sulfate 1000mg in ED - NPO, hold home feeds given clinical status - Strict I/O's - continue home meds: centrum, Koncomep, senna, ducolax PRN - Repeat Mag, Phos, BMP Heme: -Hx of neutropenia, anemia, thrombocytopenia- follows with heme/onc -Repeat CBC with diff ID: - Follow blood and urine cultures - Continue Cefepime 2000mg q8 hrs for pseudomonas coverage - Continue Clindamycin 600 mg IV q8 for anaerobic coverage - Continue Linezolid for MRSA coverage in setting of neutropenia - Consult ID given hx of MDRO UTI, pseudomonas, and concerns for aspiration in setting of neutropenia : Pt with DAVID -Straight cath via DAVID q3 hours Neuro: s/p Ativan x 1 in ED for concerns of increased seizures - Discussed with Neurology. Recommended Keppra 60mg/kg if persistent seizures since it is less sedating - Klonopin bridge started in ED - Klonopin 0.125 mg BID x 3 days - Continue home meds: onfi, vimpat, keppra CODE STATUS: DNR with comfort. No electricity, compressions, rescue breathing, or cardiac meds. Reviewed and confirmed with family on admission. Multifocal pneumonia 01/03/2023 023 Assessment & Plan (01/14/2023 6:12 PM CDT): Assessment: Donna is a 22 y/o F with complex medical hx including spastic CP, severe static encephalopathy, chronic respiratory failure secondary to static encephalopathy, g-tube dependence, and epilepsy who presents with acute on chronic hypoxic respiratory failure secondary to aspiration pneumonia. CT chest with concerns for aspiration pneumonia vs aspiration pneumonitis. Soft tissue swelling possibly peribronchial thickening versus less likely fibrosing mediastinitis without airway narrowing. Likely this is CAP, and with discussion with ID, continuing with current antibiotics. Other causes of acute deterioration of respiratory status should include PE, although less likely due to reassuring CT findings. Patient clinically stable, at goal for her O2 saturation with non-rebreather. Requires inpatient admission for further management of respiratory failure. Plan: Respiratory: - continue CPAP during night, open face mask during the day - Home oxygen is RA during day and CPAP at 8 PEEP at night - Continous pulse ox - CRM monitors - per pulm, increase bronchial hygiene with vest and albuterol BID if sats <90% - CBC MWF - if patient should have air hunger, family has requested a comfort measure to have morphine available. Cardio: - if SBP <70s, nursing communication to contact residents. FEN/GI: - G-tube feeds - Strict I/O's - continue home meds: centrum qd, Konvomep qd, senna bid, ducolax PRN - consult nutrition, ongoing recommendations appreciated. Heme: - Hx of pancytopenia - follows with OP heme/onc - CBC monitor MWF ID: - Bcx NGTD - Converted to enteral Amoxiclav on 01/08, will continue for 2 weeks total, end on 01/20 : Pt with DAVID -Straight cath via DAVID qd Neuro: - neurology following; see Seizures for management plan DISPO: home, when patient is stable on her baseline respiratory management. CODE STATUS: Review Dr. Harry's pallative care consult from 01/05 and 01/09 for specifics about DNR Limited status. Assessment & Plan (01/13/2023 6:04 PM CDT): Assessment: Donna is a 22 y/o F with complex medical hx including spastic CP, severe static encephalopathy, chronic respiratory failure secondary to static encephalopathy, g-tube dependence, and epilepsy who presents with acute on chronic hypoxic respiratory failure secondary to aspiration pneumonia. CT chest with concerns for aspiration pneumonia vs aspiration pneumonitis. Soft tissue swelling possibly peribronchial thickening versus less likely fibrosing mediastinitis without airway narrowing. Likely this is CAP, and with discussion with ID, continuing with current antibiotics. Other causes of acute deterioration of respiratory status should include PE, although less likely due to reassuring CT findings. Patient clinically stable, at goal for her O2 saturation with non-rebreather. Requires inpatient admission for further management of respiratory failure. Plan: Respiratory: - continue CPAP during night, open face mask during the day - Home oxygen is RA during day and CPAP at 8 PEEP at night - Continous pulse ox - CRM monitors - per pulm, increase bronchial hygiene with vest and albuterol BID if sats <90% - CBC MWF - if patient should have air hunger, family has requested a comfort measure to have morphine available. Cardio: - if SBP <70s, nursing communication to contact residents. FEN/GI: - G-tube feeds - Strict I/O's - continue home meds: centrum qd, Konvomep qd, senna bid, ducolax PRN - consult nutrition, ongoing recommendations appreciated. Heme: - Hx of pancytopenia - follows with OP heme/onc - CBC monitor MWF ID: - Bcx NGTD - Converted to enteral Amoxiclav on 01/08, will continue for 2 weeks total, end on 01/20 : Pt with DAVID -Straight cath via DAVID qd Neuro: - neurology following; see Seizures for management plan DISPO: home, when patient is stable on her baseline respiratory management. CODE STATUS: Review Dr. Harry's pallative care consult from 01/05 and 01/09 for specifics about DNR Limited status. Assessment & Plan (01/12/2023 2:34 PM CDT): Assessment: Donna is a 22 y/o F with complex medical hx including spastic CP, severe static encephalopathy, chronic respiratory failure secondary to static encephalopathy, g-tube dependence, and epilepsy who presents with acute on chronic hypoxic respiratory failure secondary to aspiration pneumonia. CT chest with concerns for aspiration pneumonia vs aspiration pneumonitis. Soft tissue swelling possibly peribronchial thickening versus less likely fibrosing mediastinitis without airway narrowing. Likely this is CAP, and with discussion with ID, continuing with current antibiotics. Other causes of acute deterioration of respiratory status should include PE, although less likely due to reassuring CT findings. Patient clinically stable, at goal for her O2 saturation with non-rebreather. Requires inpatient admission for further management of respiratory failure. Plan: Respiratory: - continuous CPAP for comfort with alternating open face mask and CPAP mask 6hr:2hr ratio - Home oxygen is RA during day and CPAP at 8 PEEP at night - Continous pulse ox - CRM monitors - per pulm, increase bronchial hygiene with vest and albuterol BID if sats <90% - consult to palliative, footprints, and ID, appreciate recommendations - CBC MWF - if patient should have air hunger, family has requested a comfort measure to have morphine available. Cardio: - if SBP <70s, nursing communication to contact residents. FEN/GI: - G-tube feeds - Strict I/O's - continue home meds: centrum qd, Konvomep qd, senna bid, ducolax PRN - consult nutrition, ongoing recommendations appreciated. Heme: - Hx of pancytopenia - follows with OP heme/onc - CBC monitor MWF ID: - Bcx NGTD; Ucx negative - Converted to enteral Amoxiclav on 01/08, will continue for 2 weeks total, end on 01/20 - Consult ID given hx of MDRO UTI, pseudomonas, and concerns for aspiration in setting of neutropenia : Pt with DAVID -Straight cath via DAVID qd Neuro: - s/p Ativan x 1 in ED for concerns of increased seizures - Discussed with Neurology. Recommended Keppra loading dose of 40mg/kg if persistent seizures since it is less sedating; If she has 3 or more seizures in a 1-hr period, would consider giving another load, please give 40mg/kg of Keppra - s/p Klonopin bridge 0.125 mg BID 5 days, ended on 01/07 - Continue home meds: onfi, vimpat, keppra DISPO: home, when patient is stable on home settings. CODE STATUS: Review Dr. Harry's pallative care consult from 01/05 and 01/09 for specifics about DNR Limited status. Assessment & Plan (01/11/2023 2:15 PM CDT): Assessment: Donna is a 22 y/o F with complex medical hx including spastic CP, severe static encephalopathy, chronic respiratory failure secondary to static encephalopathy, g-tube dependence, and epilepsy who presents with acute on chronic hypoxic respiratory failure secondary to aspiration pneumonia. CT chest with concerns for aspiration pneumonia vs aspiration pneumonitis. Soft tissue swelling possibly peribronchial thickening versus less likely fibrosing mediastinitis without airway narrowing. Likely this is CAP, and with discussion with ID, continuing with current antibiotics. Other causes of acute deterioration of respiratory status should include PE, although less likely due to reassuring CT findings. Patient clinically stable, at goal for her O2 saturation with non-rebreather. Requires inpatient admission for further management of respiratory failure. Plan: Respiratory: - continuous CPAP for comfort with alternating open face mask and CPAP mask q4h to avoid skin breakdown from face seal. - Home oxygen is RA during day and CPAP 8L at 8 PEEP at night - Continous pulse ox - CRM monitors - per pulm, increase bronchial hygiene with vest and albuterol BID if sats <90% - consult to palliative, footprints, and ID, appreciate recommendations - CBC every other day - if patient should have air hunger, family has requested a comfort measure to have morphine available. Cardio: - if SBP <70s, nursing communication to contact residents. FEN/GI: - G-tube feeds - Strict I/O's - continue home meds: centrum qd, Konvomep qd, senna bid, ducolax PRN - daily BMP - consult nutrition, ongoing recommendations appreciated. Heme: - Hx of pancytopenia - follows with OP heme/onc - CBC monitor every other day ID: - Bcx no growth in 24hs; Ucx negative - Converted to enteral Amoxiclav on 01/08, will continue for 2 weeks total, end on 01/20 - Consult ID given hx of MDRO UTI, pseudomonas, and concerns for aspiration in setting of neutropenia - Plan to convert to Unasyn on 01/08 per pharmacy recommendations. : Pt with DAVID -Straight cath via DAVID qd - need to account for flushes in I/O Neuro: - s/p Ativan x 1 in ED for concerns of increased seizures - Discussed with Neurology. Recommended Keppra loading dose of 40mg/kg if persistent seizures since it is less sedating; If she has 3 or more seizures in a 1-hr period, would consider giving another load, please give 40mg/kg of Keppra - Klonopin bridge started in ED - Klonopin 0.125 mg BID x 3 days, now Klonipin 0.5 BID for total 5 days, ending on 01/07 - Continue home meds: onfi, vimpat, keppra DISPO: home, if patient is off open mask for 24 hours, with sats >84%. CODE STATUS: Review Dr. Harry's pallative care consult from 01/05 and 01/09 for specifics about DNR Limited status. Assessment & Plan (01/10/2023 6:41 PM CDT): Assessment: Donna is a 22 y/o F with complex medical hx including spastic CP, severe static encephalopathy, chronic respiratory failure secondary to static encephalopathy, g-tube dependence, and epilepsy who presents with acute on chronic hypoxic respiratory failure secondary to aspiration pneumonia. CT chest with concerns for aspiration pneumonia vs aspiration pneumonitis. Soft tissue swelling possibly peribronchial thickening versus less likely fibrosing mediastinitis without airway narrowing. Likely this is CAP, and with discussion with ID, continuing with current antibiotics. Other causes of acute deterioration of respiratory status should include PE, although less likely due to reassuring CT findings. Patient clinically stable, at goal for her O2 saturation with non-rebreather. Requires inpatient admission for further management of respiratory failure. Plan: Respiratory: - continuous CPAP for comfort with alternating open face mask and CPAP mask q3h to avoid skin breakdown from face seal. - Home oxygen is RA during day and CPAP 8L at 8 PEEP at night - Continous pulse ox - CRM monitors - per pulm, increase bronchial hygiene with vest and albuterol BID if sats <90% - consult to palliative, footprints, and ID, appreciate recommendations - CBC every other day - if patient should have air hunger, family has requested a comfort measure to have morphine available. Cardio: - if SBP <70s, nursing communication to contact residents. FEN/GI: - decreased D5 NS and increasing G-tube feeds today - Strict I/O's - continue home meds: centrum, Konvomep, senna, ducolax PRN - daily BMP - consult nutrition, ongoing recommendations appreciated. Heme: - Hx of pancytopenia - follows with OP heme/onc - CBC monitor every other day ID: - Bcx no growth in 24hs; Ucx negative - Discontinued cefepime on 01/07, Linezolid and Clindamycin on 01/08 - Converted to enteral Amoxiclav on 01/08, will continue for 2 weeks total, end on 01/20 - Consult ID given hx of MDRO UTI, pseudomonas, and concerns for aspiration in setting of neutropenia - Plan to convert to Unasyn on 01/08 per pharmacy recommendations. : Pt with DAVID -Straight cath via DAVID qd Neuro: - s/p Ativan x 1 in ED for concerns of increased seizures - Discussed with Neurology. Recommended Keppra loading dose of 40mg/kg if persistent seizures since it is less sedating; If she has 3 or more seizures in a 1-hr period, would consider giving another load, please give 40mg/kg of Keppra - Klonopin bridge started in ED - Klonopin 0.125 mg BID x 3 days, now Klonipin 0.5 BID for total 5 days, ending on 01/07 - Continue home meds: onfi, vimpat, keppra DISPO: if patient is off open mask for 24 hours, with sats >84%. CODE STATUS: Review Dr. Harry's pallative care consult from 01/05 for specifics about DNR Limited status. Assessment & Plan (01/09/2023 7:28 PM CDT): Assessment: Donna is a 22 y/o F with complex medical hx including spastic CP, severe static encephalopathy, chronic respiratory failure secondary to static encephalopathy, g-tube dependence, and epilepsy who presents with acute on chronic hypoxic respiratory failure secondary to aspiration pneumonia. CT chest with concerns for aspiration pneumonia vs aspiration pneumonitis. Soft tissue swelling possibly peribronchial thickening versus less likely fibrosing mediastinitis without airway narrowing. Likely this is CAP, and with discussion with ID, continuing with current antibiotics. Other causes of acute deterioration of respiratory status should include PE, although less likely due to reassuring CT findings. Patient clinically stable, at goal for her O2 saturation with non-rebreather. Requires inpatient admission for further management of respiratory failure. Plan: Respiratory: - continuous CPAP for comfort - Home oxygen is RA during day and CPAP 8L at 8 PEEP at night - Continous pulse ox - CRM monitors - per pulm, increase bronchial hygiene with vest and albuterol BID if sats <90% - consult to palliative, footprints, and ID, appreciate recommendations - CBC every other day FEN/GI: - decreased D5 NS and increasing G-tube feeds today - Strict I/O's - continue home meds: centrum, Konvomep, senna, ducolax PRN - daily BMP - consult nutrition, ongoing recommendations appreciated. Heme: - Hx of pancytopenia - follows with OP heme/onc - CBC monitor every other day ID: - Bcx no growth in 24hs; Ucx negative - Discontinued cefepime on 01/07, Linezolid and Clindamycin on 01/08 - Converted to enteral Amoxiclav on 01/08, will continue for 2 weeks total - Consult ID given hx of MDRO UTI, pseudomonas, and concerns for aspiration in setting of neutropenia - Plan to convert to Unasyn on 01/08 per pharmacy recommendations. : Pt with DAVID -Straight cath via DAVID qd Neuro: - s/p Ativan x 1 in ED for concerns of increased seizures - Discussed with Neurology. Recommended Keppra loading dose of 40mg/kg if persistent seizures since it is less sedating; If she has 3 or more seizures in a 1-hr period, would consider giving another load, please give 40mg/kg of Keppra - Klonopin bridge started in ED - Klonopin 0.125 mg BID x 3 days, now Klonipin 0.5 BID for total 5 days, ending on 01/07 - Continue home meds: onfi, vimpat, keppra CODE STATUS: Review Dr. Harry's pallative care consult from 01/05 for specifics about DNR Limited status. Recurrent UTI 10/08/2022 08/05/2024 Assessment & Plan (10/12/2022 1:36 PM CDT): Assessment: Briefly, Donna is a 22 year old female with history of CP (2/2 OSCAR during infancy), static encephalopathy, seizures, neurogenic bladder with urinary retention (Mitrofanoff in place, on straight caths at home), frequent UTI's, recent admission for sepsis in the setting of UTI, g-tube dependency, NUBIA (CPAP O/N) who presented due to concerns of irritability, possible UTI with blood in her urine, and constipation. Urine culture positive for MRSA, though [id number] cfu. Will elect to treat given significant clinical improvement on IV antibiotics and symptomatic on presentation. oDnna is medically stable for discharge to home on oral antibiotics. As discussed with the Clinical Pharmacist, Doxycycline is not recommended in the treatment of UTIs. Therefore, decision made to proceed with treatment of Linezolid. However, insurance has denied coverage. Medical team has appealed this decision. At this time, Donna will remain admitted until completion of antibiotics or insurance will provide coverage for necessary home treatment. Plan: - Admit to general medicine - Yellow Team (Dr. Araujo) - Continue Enteral Linezolid 600 mg q 12h per pharmacy, (EOT 10/18). - Follow blood culture, currently NGTD - Continue G tube feeds - specific regimen for hospital as per mother and paperwork provided - x 3 bolus feeds total of 330 ml of Jevity 1.5 in addition to 1700 ml of free water. - Strict I/Os - Bronchial Hygiene - vest QID - Straight cath (3-4 times between 7 am - 11 pm) - Vitals q4h - Monitor for hypothermia; baseline temps run from 96 to 97.0. If she is 96.0- 96.5, apply warm blankets. If 95 or below, use peter hugger. - Strict I/Os - Cardiorespiratory monitoring - Continuous pulse oximetry - Continue home meds: Miralax, baclofen, tums, cefepime, clobazam, flonase, lacosamide, keppra, OCP, MVI, omeprazole Assessment & Plan (10/11/2022 1:48 PM CDT): Assessment: Briefly, Donna is a 22 year old female with history of CP (2/2 OSCAR during infancy), static encephalopathy, seizures, neurogenic bladder with urinary retention (Mitrofanoff in place, on straight caths at home), frequent UTI's, recent admission for sepsis in the setting of UTI, g-tube dependency, NUBIA (CPAP O/N) who presented due to concerns of irritability, possible UTI with blood in her urine, and constipation. Urine culture positive for MRSA, though [id number] cfu. Will elect to treat given significant clinical improvement on IV antibiotics and symptomatic on presentation. Continues to have some degree of temperature instability requiring peter hugger, but overall improving. She requires admission for IV antibiotics and close monitoring. Plan: - Admit to general medicine - Yellow Team (Dr. Araujo) - Continue IV Linezolid 600 mg q 12h per pharmacy, Discontinue Cefepime. Will complete total 10 day course of antibiotics. (EOT 10/18). Will convert to enteral once temperatures stabilize. - Follow blood culture, currently NGTD - Continue G tube feeds - specific regimen for hospital as per mother and paperwork provided - x 3 bolus feeds total of 330 ml of Jevity 1.5 in addition to 1700 ml of free water. - Strict I/Os - Bronchial Hygiene - vest QID - Straight cath (3-4 times between 7 am - 11 pm) - Vitals q4h - Monitor for hypothermia; baseline temps run from 96 to 97.0. If she is 96.0- 96.5, apply warm blankets. If 95 or below, use peter hugger. - Strict I/Os - Cardiorespiratory monitoring - Continuous pulse oximetry - Continue home meds: Miralax, baclofen, tums, cefepime, clobazam, flonase, lacosamide, keppra, OCP, MVI, omeprazole Assessment & Plan (10/10/2022 9:52 AM CDT): Assessment: Briefly, Donna is a 22 year old female with history of CP (2/2 OSCAR during infancy), static encephalopathy, seizures, neurogenic bladder with urinary retention (Mitrofanoff in place, on straight caths at home), frequent UTI's, recent admission for sepsis in the setting of UTI, g-tube dependency, NUBIA (CPAP O/N) who presents due to concerns of irritability, possible UTI with blood in her urine, and constipation. Hypothermic on arrival and now hypoxemic. Etiology of presentation likely recurrent UTI given UA findings of hematuria and LE (similar to findings with past UTIs) though lack of pyuria is unusual. UCx is pending. CBC reassuring. Given history of VRE and MRSA UTIs, she was started on Cefepime and Linezolid. She has also received a fluid bolus and is now receiving external warming with overall improvement in clinical status. She requires admission for IV antibiotics and close monitoring. Plan: - Admit to general medicine - Yellow Team (Dr. Araujo) - Continue IV Linezolid 600 mg q 12h and Cefepime 2000 mg q8 - Follow urine culture and sensitivitites with plan to transition to enteral antibiotics if possible based on sensitivitites. She has a history of MRSA and VRE UTI infections, can consider to consult ID for management of antibiotics. - Follow blood culture, currently NGTD - Continue G tube feeds - specific regimen for hospital as per mother and paperwork provided - x 3 bolus feeds total of 330 ml of Jevity 1.5 in addition to 1700 ml of free water. - Strict I/Os - Bronchial Hygiene - vest QID - Straight cath (3-4 times between 7 am - 11 pm) - Vitals q4h - Monitor for hypothermia; baseline temps run from 96.5 to 97.0. If she is 96.0- 96.5, apply warm blankets. If 95.9 or below, use peter hugger. - Strict I/Os - Cardiorespiratory monitoring - Continuous pulse oximetry - Continue home meds: Miralax, baclofen, tums, cefepime, clobazam, flonase, lacosamide, keppra, OCP, MVI, omeprazole Assessment & Plan (10/09/2022 1:51 AM CDT): Assessment: Donna Negrete is a 22 year old female with history of quadriplegia, chronic respiratory failure, epilepsy, and recent admission for urosepsis (09/26-09/29) with DNR and comfort measures who presents with hematuria and increased irritability concerning for UTI. Labs remarkable for 3+ blood, 2+ LE and trace bacteria. CBC reassuring. Initial exam w/ hypothermia but otherwise no apparent discomfort or respiratory distress. Given history of VRE and MRSA UTIs, she was started on Cefepime and Linezolid. She has also received a fluid bolus and is now receiving external warming with overall improvement in clinical status. She requires admission for IV antibiotics and close monitoring of overall clinical status. Plan: - Admit to general medicine - Stefanie Team (Dr. Araujo) - Continue IV Linezolid 600 mg q 12h and Cefepime 2000 mg q8 - Follow urine culture and sensitivitites with plan to transition to enteral antibiotics if possible based on sensitivitites. She has a history of MRSA and VRE UTI infections, can consider to consult ID for management of antibiotics. - Follow blood culture - Continue G tube feeds - specific regimen for hospital as per mother and paperwork provided - x 3 bolus feeds total of 330 ml of Jevity 1.5 in addition to 1700 ml of free water. - Palliative care consult - Strict I/os - Bronchial Hygiene - vest BID - Straight cath (3-4 times between 7 am - 11 pm) - Vitals q8h - Strict I/Os - Cardiorespiratory monitoring - Continuous pulse oximetry - Continue home meds: baclofen, tums, cefepime, clobazam, flonase, lacosamide, keppra, OCP, MVI, omeprazole CP (cerebral palsy), spastic, quadriplegic 10/08/2022 08/05/2024 Assessment & Plan (01/29/2024 12:00 PM CDT): 23 year old with global developmental delay, seizure disorder, recurrent aspiration pneumonia and recurrent respiratory illnesses doing well for some time though for uncertain reasons (multiple hospitalizations 2020 and a couple earlier this year). She is no longer in school which may be a factor. Remains in RA with acceptable saturations. Ongoing cough which is likely protective. Rec: Continue as before Flu vaccine today Encouraged COVID vaccine Remains as DNR status F/U 6 months Assessment & Plan (10/02/2023 10:20 AM CDT): 23 year old with multiple problems as noted here for routine f/u with concerns about respiratory illness as detailed below. She is, however, interactive, smiling, breathing comfortably with normal lung shin and normal saturation in RA. Home nurse had COVID last week but Donna has been tested negative twice at home. Mom and I have discussed possible antibiotics but in light of her appearance, saturations and concerns re C diff, will hold off for now. Rec: As above Continue same aggressive airway clearance, suctioning Will see in 3 months Hematuria 10/08/2022 08/05/2024 Shock 09/27/2022 09/28/2022 Assessment & Plan (09/28/2022 11:25 AM CDT): Assessment: 22 y/o female with medical complexity (severe static encephalopathy, spastic quadriplegia, epilepsy) with comfort care plan hospitalized with uncompensated shock and acute on chronic respiratory failure. Patient followed by palliative care since last hospitalization given significant progression of symptoms in the past ~6mo with 4 hospitalizations for acute on chronic respiratory failure requiring PICU care with prior hospitalizations complicated by sepsis and UTI. Etiology of shock unclear. Neurogenic shock secondary to autonomic instability and hypothermia most likely. Septic shock secondary to urinary tract infection also a consideration with hypothermia, neutropenia, palmar erythema, trace bacteria and +LE as well as prior history though nl procalcitonin very atypical. Likely organisms based on prior colonization history include MRSA and proteus along with enteric gram negative organisms. Pt hospitalized due to need for IV antibiotics and rewarming Plan: - continue IV Cefepime 2000 mg q12. Stop IV linezolid 600 mg q12h - Follow blood culture-no growth after 24 hours -CR monitoring and q4 vitals with administration of further boluses as needed (s/p aggressive fluid resuscitation 3L in the ED) -IV SL - Continue G tube feeds - specific regimen for hospital as per mother and paperwork provided - x 3 bolus feeds total of 330 ml of Jevity 1.5 in addition to 1700 ml of free water. -Palliative care consult -Music therapy consult -striict I/os - Bronchial Hygiene - vest BID - Straight cath (3-4 times between 7 am - 10 pm) - DNR + comfort measures Assessment & Plan (09/28/2022 10:58 AM CDT): Assessment: 22 y/o female with medical complexity (severe static encephalopathy, spastic quadriplegia, epilepsy) with comfort care plan hospitalized with uncompensated shock and acute on chronic respiratory failure. Patient followed by palliative care since last hospitalization given significant progression of symptoms in the past ~6mo with 4 hospitalizations for acute on chronic respiratory failure requiring PICU care with prior hospitalizations complicated by sepsis and UTI. Etiology of shock unclear. Neurogenic shock secondary to autonomic instability and hypothermia most likely. Septic shock secondary to urinary tract infection also a consideration with hypothermia, neutropenia, palmar erythema, trace bacteria and +LE as well as prior history though nl procalcitonin very atypical. Likely organisms based on prior colonization history include MRSA and proteus along with enteric gram negative organisms. Pt hospitalized due to need for IV antibiotics and rewarming Plan: - IV Cefepime 2000 mg q12h + IV linezolid 600 mg q12h for presumed septic shock - Follow blood culture-no growth after 24 hours -CR monitoring and q4 vitals with administration of further boluses as needed (s/p aggressive fluid resuscitation 3L in the ED) -IV SL - Continue G tube feeds - specific regimen for hospital as per mother and paperwork provided - x 3 bolus feeds total of 330 ml of Jevity 1.5 in addition to 1700 ml of free water. -Palliative care consult -Music therapy consult -striict I/os - Bronchial Hygiene - vest BID - Straight cath (3-4 times between 7 am - 10 pm) - DNR + comfort measures Diarrhea 09/04/2022 10/02/2022 Assessment & Plan (09/04/2022 11:33 AM CDT): Assessment: Donna has had 1.5 weeks of diarrhea stools noted by family. Mother reports cdiff testing from PCP office last week was negative. However, she has received both Ceftriaxone and Clindamycin since testing was sent. Given recent antibiotic use and length of diarrhea, will repeat cdiff testing and send stool culture. Plan: - Send stool culture and repeat cdiff testing - Hold on presumptive treatment at this time given negative cdiff results from last week. Atelectasis 09/01/2022 08/05/2024 Oxygen desaturation 07/31/2022 08/06/19 25 Urinary tract infection due to Proteus 07/31/2022 08/05/2024 Assessment & Plan (03/15/2023 7:02 AM INSPECTOR PENETRANT): Assessment: Pt with proteus mirabilis cystitis Plan: -Enteral ciprofloxacin (based on susceptibilities from 09/28) -Follow urine culture sensitivities -plan for 7d antibiotic course to follow with the pneumonia treatment. Assessment & Plan (03/13/2023 2:41 PM INSPECTOR PENETRANT): Assessment: Pt with proteus mirabilis cystitis Plan: -Enteral ciprofloxacin (based on susceptibilities from 09/28) -Follow urine culture sensitivities -plan for 7d antibiotic course to follow with the pneumonia treatment. Assessment & Plan (08/06/2022 10:20 AM CDT): Assessment: Donna Negrete is a 20 month old female with a hx of spastic CP, chronic RF, seizure disorder, recently admitted for UTI and PNA (07/12-07/22) here for transient oxygen desaturations and mild hypothermia in the setting of a recently diagnosed UTI (07/25) and C difficile infection with confirmation of proteus UTI on urine culture from admission. She was initially admitted to the general medicine service, but required transfer to the ICU for higher level of care due to temperature and blood pressure instability. Her temperature, mental status, and blood pressures have now stabilized and she is safe for transfer back to the general medicine service but continues to require hospitalization for further workup and monitoring. Plan: - pt to be under the care of general medicine but will remain in PICU room for nursing care requirements with her full face CPAP that is needed nightly, she is not to be transferred to TCU or general medicine floor per written policy - IV Rocephin 2 grams q24h (s/p Fortaz in AM) - Renal US - normal - Vancomycin 125 mg q6h enterally for C difficile infection - Continue G tube feeds as outlined in nutrition note from 08/01 (350 mL of Jevity 1.5 chio/mL + 650 mL of water + 2 packets of beneprotein (14 gm) = 1000 mL TID at 0800, 1200, and 1600. Water flushes of 250 mL after each bolus feed and at 2000 with Miralax. - Bronchial Hygiene - vest and cough assist BID - Tylenol PRN for comfort - RA during the day, overnight full face CPAP at pressure - 8 - Blood culture: no growth - Strict I's and O's - Straight cath (3-4 times between 7 am - 10 pm) - Continue home medications - Vitals q4h - Full code - Repeat UA today is reassuring, will follow up on culture Assessment & Plan (08/05/2022 7:25 AM CDT): Assessment: Donna Negrete is a 20 month old female with a hx of spastic CP, chronic RF, seizure disorder, recently admitted for UTI and PNA (07/12-07/22) here for transient oxygen desaturations and mild hypothermia in the setting of a recently diagnosed UTI (07/25) and C difficile infection with confirmation of proteus UTI on urine culture from admission. She was initially admitted to the general medicine service, but required transfer to the ICU for higher level of care due to temperature and blood pressure instability. Her temperature, mental status, and blood pressures have now stabilized and she is safe for transfer back to the general medicine service but continues to require hospitalization for further workup and monitoring. Plan: - pt to be under the care of general medicine but will remain in PICU room for nursing care requirements with her full face CPAP that is needed nightly, she is not to be transferred to TCU or general medicine floor per written policy - IV Rocephin 2 grams q24h (s/p Fortaz in AM) - Renal US - normal - Vancomycin 125 mg q6h enterally for C difficile infection - Continue G tube feeds as outlined in nutrition note from 08/01 (350 mL of Jevity 1.5 chio/mL + 650 mL of water + 2 packets of beneprotein (14 gm) = 1000 mL TID at 0800, 1200, and 1600. Water flushes of 250 mL after each bolus feed and at 2000 with Miralax. - Bronchial Hygiene - vest and cough assist BID - Tylenol PRN for comfort - RA during the day, overnight full face CPAP at pressure - 8 - Blood culture: no growth - Strict I's and O's - Straight cath (3-4 times between 7 am - 10 pm) - Continue home medications - Vitals q4h - Full code Assessment & Plan (08/04/2022 11:59 AM CDT): Assessment: Donna Negrete is a 20 month old female with a hx of spastic CP, chronic RF, seizure disorder, recently admitted for UTI and PNA (07/12-07/22) here for transient oxygen desaturations and mild hypothermia in the setting of a recently diagnosed UTI (07/25) and C difficile infection with confirmation of proteus UTI on urine culture from admission. She was initially admitted to the general medicine service, but required transfer to the ICU for higher level of care due to temperature and blood pressure instability. Her temperature, mental status, and blood pressures have now stabilized and she is safe for transfer back to the general medicine service but continues to require hospitalization for further workup and monitoring. Plan: - pt to be under the care of general medicine but will remain in PICU room for nursing care requirements with her full face CPAP that is needed nightly, she is not to be transferred to TCU or general medicine floor per written policy - IV Rocephin 2 grams q24h (s/p Fortaz in AM) - Renal US - normal - Vancomycin 125 mg q6h enterally for C difficile infection - Continue G tube feeds as outlined in nutrition note from 08/01 (350 mL of Jevity 1.5 chio/mL + 650 mL of water + 2 packets of beneprotein (14 gm) = 1000 mL TID at 0800, 1200, and 1600. Water flushes of 250 mL after each bolus feed and at 2000 with Miralax. - Bronchial Hygiene - vest and cough assist BID - Tylenol PRN for comfort - RA during the day, overnight full face CPAP at pressure - 8 - Blood culture: no growth - Strict I's and O's - Straight cath (3-4 times between 7 am - 10 pm) - Continue home medications - Vitals q4h - Full code Assessment & Plan (08/03/2022 10:17 AM CDT): Assessment: Donna Negrete is a 20 month old female with a hx of spastic CP, chronic RF, seizure disorder, recently admitted for UTI and PNA (07/12-07/22) here for transient oxygen desaturations and mild hypothermia in the setting of a recently diagnosed UTI (07/25) and C difficile infection with confirmation of proteus UTI on urine culture from admission. She was initially admitted to the general medicine service, but required transfer to the ICU for higher level of care due to temperature and blood pressure instability. Her temperature, mental status, and blood pressures have now stabilized and she is safe for transfer back to the general medicine service but continues to require hospitalization for further workup and monitoring. Plan: - pt to be under the care of general medicine but will remain in PICU room for nursing care requirements with her full face CPAP that is needed nightly, she is not to be transferred to TCU or general medicine floor per written policy - IV Rocephin 2 grams q24h (s/p Fortaz in AM) - Renal US - normal - Vancomycin 125 mg q6h enterally for C difficile infection - Continue G tube feeds as outlined in nutrition note from 08/01 (350 mL of Jevity 1.5 chio/mL + 650 mL of water + 2 packets of beneprotein (14 gm) = 1000 mL TID at 0800, 1200, and 1600. Water flushes of 250 mL after each bolus feed and at 2000 with Miralax. - Bronchial Hygiene - vest and cough assist BID - Tylenol PRN for comfort - RA during the day, overnight full face CPAP at pressure - 8 - Blood culture: no growth - Strict I's and O's - Straight cath (3-4 times between 7 am - 10 pm) - Continue home medications - Vitals q4h - Full code Assessment & Plan (08/02/2022 12:26 PM CDT): Assessment: Donna Negrete is a 20 month old female with a hx of spastic CP, chronic RF, seizure disorder, recently admitted for UTI and PNA (07/12-07/22) here for transient oxygen desaturations and mild hypothermia in the setting of a recently diagnosed UTI (07/25) and C difficile infection with confirmation of proteus UTI on urine culture from admission. She was initially admitted to the general medicine service, but required transfer to the ICU for higher level of care due to temperature and blood pressure instability. Her temperature, mental status, and blood pressures have now stabilized and she is safe for transfer back to the general medicine service but continues to require hospitalization for further workup and monitoring. Plan: - Transfer care back to [facility], Dr. Estrada; pt to be under the care of general medicine but will remain in PICU room for nursing care requirements with her full face CPAP that is needed nightly, she is not to be transferred to TCU or general medicine floor per written policy - IV Rocephin 2 grams q24h (s/p Fortaz in AM) - Obtain Renal US given increasing frequency of UTIs in the recent past - Vancomycin 125 mg q6h enterally for C difficile infection - Continue G tube feeds as outlined in nutrition note from 08/01 (350 mL of Jevity 1.5 chio/mL + 650 mL of water + 2 packets of beneprotein (14 gm) = 1000 mL TID at 0800, 1200, and 1600. Water flushes of 250 mL after each bolus feed and at 2000 with Miralax. - Bronchial Hygiene - vest and cough assist BID - Tylenol PRN for comfort - RA during the day, overnight full face CPAP at pressure - 8 - Follow blood culture - Strict I's and O's - Straight cath (3-4 times between 7 am - 10 pm) - Continue home medications - Vitals q4h - Full code Assessment & Plan (07/31/2022 10:25 PM CDT): Assessment: Donna Negrete is a 20 month old female with a hx of spastic CP, chronic RF, seizure disorder, recently admitted for UTI and PNA (07/12-07/22) here for transient oxygen desaturations and mild hypothermia in the setting of a recently diagnosed UTI (07/25) and C difficile infection. Patient was admitted ot [facility] inpatient for further management of the same. Plan: - Admit to Yellow Team/General Medicine - Sharlene Estrada - IV Rocephin 2 grams q24h (s/p Fortaz in AM) - Vancomycin 125 mg q6h enterally for C difficile infection - Continue G tube feeds - specific regimen for hospital as per mother and paperwork provided - x 3 bolus feeds total of 480 ml of Jevity 1.0 in addition to 1600 ml of free water - Bronchial Hygiene - vest and cough assist BID - RA during the day, overnight full face CPAP at pressure - 8 - Follow urine and blood cultures - Strict I's and O's - Straight cath (3-4 times between 7 am - 10 pm) - Continue home medications - Repeat CBC and CMP in AM; consider repeat chest xray if respiratory symptoms worsen - Vitals q8h - Full code Clostridioides difficile infection 07/31/2022 08/05/2024 Assessment & Plan (01/15/2023 1:36 PM CDT): Assessment: H/o of C. Diff in 2020, confirmed again on 01/07/2023 Plan: - Enteral vancomycin for 14 days (started on evening of 01/09, end on 01/19) - monitor stool output, baseline is typically every other day bowel movements Assessment & Plan (01/14/2023 6:12 PM CDT): Assessment: H/o of C. Diff in 2020, confirmed again on 01/07/2023 Plan: - Enteral vancomycin for 14 days (started on evening of 01/09, end on 01/19) - monitor stool output, baseline is typically every other day bowel movements Assessment & Plan (01/13/2023 5:43 PM CDT): Assessment: H/o of C. Diff in 2020, confirmed again on 01/07/2023 Plan: - Enteral vancomycin for 14 days (started on evening of 01/09, end on 01/19) - monitor stool output, baseline is typically every other day bowel movements Assessment & Plan (01/12/2023 2:31 PM CDT): Assessment: H/o of C. Diff in 2020, confirmed again on 01/07/2023 Plan: - Enteral vancomycin for 14 days (started on evening of 01/09, end on 01/19) - monitor stool output Assessment & Plan (01/11/2023 2:19 PM CDT): Assessment: H/o of C. Diff in 2020, confirmed again on 01/07. Plan: - Enteral vancomycin for 14 days (started on evening of 01/09, end on 01/19) - monitor stool output Assessment & Plan (01/10/2023 6:35 PM CDT): Assessment: H/o of C. Diff in 2020, confirmed again on 01/07. Plan: - Enteral vancomycin for 14 days - monitor stool output Assessment & Plan (01/09/2023 7:27 PM CDT): Assessment: H/o of C. Diff in 2020, confirmed again on 01/07. Plan: - Enteral vancomycin for 14 days - monitor stool output Assessment & Plan (01/08/2023 8:59 PM CDT): Assessment: H/o of C. Diff in 2020, confirmed again on 01/07. Plan: - Enteral vancomycin for 14 days - monitor stool output Assessment & Plan (01/07/2023 7:26 PM CDT): Assessment: H/o of C. Diff in 2020, confirmed again on 01/07. Plan: - Enteral vancomycin for 14 days - monitor stool output Assessment & Plan (01/06/2023 6:48 PM CDT): Assessment: H/o of C. Diff in 2020. With increaed stool output, will prophylacticaly treat with vanc; however, family would rather we wait for C. Diff result, then treat to avoid possibly developing a yeast infection. Plan: - pending C diff results - holding vanc for now - monitor stool output Assessment & Plan (08/06/2022 10:19 AM CDT): Assessment: Recently diagnosed with C diff on stool culture on 07/25. Plan: - Continue vancomycin enteral 125 mg - as opined by ID - vancomycin will continue one week (tail week) after UTI treatment stops - Rocephin/Cipro once home - Having large loose stools and is not needing Miralax or Senna - will discontinue for now, will restart if needed Assessment & Plan (08/05/2022 7:25 AM CDT): Assessment: Recently diagnosed with C diff on stool culture on 07/25. Plan: - Continue vancomycin enteral 125 mg - as opined by ID - vancomycin will continue one week (tail week) after UTI treatment stops - Rocephin/Cipro once home Assessment & Plan (08/04/2022 12:00 PM CDT): Assessment: Recently diagnosed with C diff on stool culture on 07/25. Plan: - Continue vancomycin enteral 125 mg - as opined by ID - vancomycin will continue one week (tail week) after UTI treatment stops - Rocephin/Cipro once home Assessment & Plan (08/03/2022 10:16 AM CDT): Assessment: Recently diagnosed with C diff on stool culture on 07/25. Plan: - Continue vancomycin enteral 125 mg x 10 days Assessment & Plan (08/02/2022 11:38 AM CDT): Assessment: Recently diagnosed with C diff on stool culture on 07/25. Plan: - Continue vancomycin enteral 125 mg x 10 days Assessment & Plan (07/31/2022 10:24 PM CDT): Assessment: Recently diagnosed with C diff on stool culture on 07/25. Plan: - Continue vancomycin enteral 125 mg x 10 days Recurrent aspiration pneumonia 07/17/2022 08/05/2024 Urinary tract infection 07/13/202205/10 Assessment & Plan (05/30/2023 12:00 PM INSPECTOR PENETRANT): Assessment: Uti POA. Culture positive for betancourt susceptible Klebsella and sensitive to bactrim. Likely cystitis given no fevers on presentation. Plan: -Continue IV Unasyn to cover potential aspiration pneumonia. -Continue to monitor for signs of systemic infection -Scheduled cath q3h during the day -Bladder irrigation in the morning with first cath of the day Assessment & Plan (05/29/2023 7:27 AM INSPECTOR PENETRANT): Assessment: Uti POA. Culture positive for betancourt susceptible Klebsella and sensitive to bactrim. Likely cystitis given no fevers on presentation. Plan: -Continue IV Unasyn to cover potential aspiration pneumonia. -Continue to monitor for signs of systemic infection -Scheduled cath q3h during the day -Bladder irrigation in the morning with first cath of the day Assessment & Plan (05/28/2023 6:38 AM INSPECTOR PENETRANT): Assessment: Uti POA. Culture positive for betancourt susceptible Klebsella and sensitive to bactrim. Likely cystitis given no fevers on presentation. Plan: -Continue IV Unasyn to cover potential aspiration pneumonia. -Continue to monitor for signs of systemic infection -Scheduled cath q3h during the day -Bladder irrigation in the morning with first cath of the day Assessment & Plan (05/27/2023 6:28 PM INSPECTOR PENETRANT): Assessment: Uti POA. Culture positive for betancourt susceptible Klebsella and sensitive to bactrim. Likely cystitis given no fevers on presentation. Plan: -Continue IV Unasyn to cover potential aspiration pneumonia. -Continue to monitor for signs of systemic infection -Scheduled cath q3h during the day -Bladder irrigation in the morning with first cath of the day Assessment & Plan (05/26/2023 6:14 PM INSPECTOR PENETRANT): Assessment: Uti POA. Culture positive for betancourt susceptible Klebsella and sensitive to bactrim. Likely cystitis given no fevers on presentation. Plan: -Continue IV Zosyn zosyn to cover potential aspiration pneumonia. -Continue to monitor for signs of systemic infection -Scheduled cath q3h during the day -Bladder irrigation in the morning with first cath of the day Assessment & Plan (05/25/2023 4:37 PM INSPECTOR PENETRANT): Assessment: Uti POA. Culture positive for betancourt susceptible Klebsella and sensitive to bactrim Plan: -Will change ABX to zosyn to cover potential aspiration pneumonia. -Continue to monitor for signs of systemic infection -Scheduled cath q3h during the day -Bladder irrigation in the morning with first cath of the day Assessment & Plan (05/24/2023 7:28 AM INSPECTOR PENETRANT): Assessment: Uti POA. Culture positive for Klebsella and sensitive to bactrim Plan: Change abx to bactrim for UTI treatment (EOT 06/01) Continue to monitor for signs of systemic infection Scheduled cath q3h during the day Bladder irrigation in the morning with first cath of the day Assessment & Plan (05/23/2023 11:30 AM INSPECTOR PENETRANT): Assessment: Donna is a 22 year old complex medical history who presents with concerns of agitation and discomfort in the setting of abdominal distention and infrequent bowel movements. She otherwise appears at her baseline without increasing oxygen requirements or other signs of infection Urine culutre positive for Klebsiella at this time. Plan: Change abx to bactrim for UTI treatment (EOT 06/01) Continue to monitor for signs of systemic infection Scheduled cath q3h during the day Bladder irrigation in the morning with first cath of the day Assessment & Plan (05/22/2023 12:12 PM INSPECTOR PENETRANT): Assessment: Donna is a 22 year old complex medical history who presents with concerns of agitation and discomfort in the setting of abdominal distention and infrequent bowel movements. She otherwise appears at her baseline without increasing oxygen requirements or other signs of infection Urine culutre positive for Klebsiella at this time. Plan: Change abx to ciprofloxacin 500 mg BID Continue to monitor for signs of systemic infection Scheduled cath q3h during the day Bladder irrigation in the morning with first cath of the day Assessment & Plan (09/29/2022 11:06 AM CDT): Assessment: 22 y/o female with medical complexity (severe static encephalopathy, spastic quadriplegia, epilepsy) with comfort care plan hospitalized with uncompensated shock and acute on chronic respiratory failure. Etiology of shock likely combination of urinary tract infection and autonomic instability. Septic shock secondary to urinary tract infection a consideration with confirmed UTI, hypothermia, neutropenia, palmar erythema,though nl procalcitonin very atypical. Urine culture +proteus vulgaris Pt improved with resolution of shock. Pt hospitalized due to need for IV antibiotics. She is followed by palliative care and music therapy. Plan: - continue IV Cefepime 2000 mg q12 - Follow urine culture (+proteus vulgaris) and sensitivitites with plan to transition to enteral antibiotics if possible based on sensitivitites. If sensitivities do not allow for enteral antibiotics, plan on PICC line placement -Follow blood culture - Continue G tube feeds - specific regimen for hospital as per mother and paperwork provided - x 3 bolus feeds total of 330 ml of Jevity 1.5 in addition to 1700 ml of free water. -Palliative care consult -Music therapy consult -striict I/os - Bronchial Hygiene - vest BID - Straight cath (3-4 times between 7 am - 10 pm) Assessment & Plan (09/28/2022 10:59 AM CDT): Assessment: Urine culture grew >100,000 gram negative bacilli. Awaiting sensitivities. Plan: -f/u urine culture/sensitivities -continue -IV Cefepime 2000 mg q12h + IV linezolid 600 mg q12h Assessment & Plan (07/19/2022 9:29 PM CDT): Assessment: Prior to admission on 07/12 had urine culture that is significant for MRSA. 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 On admission she was on macrobid, however after review of susceptibilities she was transitioned to doxycylcine to provide coverage for potential ascending infection with kidney involvement. Plan: - Continue doxycycline 100mg BID (07/13 - 07/22) Assessment & Plan (07/18/2022 10:31 AM CDT): Assessment: Prior to admission on 07/12 had urine culture that is significant for MRSA. 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 On admission she was on macrobid, however after review of susceptibilities she was transitioned to doxycylcine to provide coverage for potential ascending infection with kidney involvement. Plan: - Continue doxycycline 100mg BID (07/13 - current) Assessment & Plan (07/16/2022 1:08 PM CDT): Assessment: Prior to admission on 07/12 had urine culture that is significant for MRSA. 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 On admission she was on macrobid, however after review of susceptibilities she was transitioned to doxycylcine to provide coverage for potential ascending infection with kidney involvement. Plan: - Continue doxycycline 100mg BID (07/13 - current) Assessment & Plan (07/15/2022 11:40 AM CDT): Assessment: Prior to admission on 07/12 had urine culture that is significant for MRSA. 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 On admission she was on macrobid, however after review of susceptibilities she was transitioned to doxycylcine to provide coverage for potential ascending infection with kidney involvement. Plan: - Continue doxycycline 100mg BID (07/13 - current) Assessment & Plan (07/14/2022 1:59 PM CDT): Assessment: Prior to admission on 07/12 had urine culture that is significant for MRSA. 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 On admission she was on macrobid, however after review of susceptibilities she was transitioned to doxycylcine to provide coverage for potential ascending infection with kidney involvement. Plan: - Continue doxycycline 100mg BID (07/13 - current) Assessment & Plan (07/13/2022 3:11 PM CDT): Assessment: Prior to admission on 07/12 had urine culture that is significant for MRSA. 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 On admission she was on macrobid, however after review of susceptibilities would like to provide coverage for potential ascending infection with kidney involvement. Plan: - Transition macrobid to doxycycline 100mg BID Petechiae 06/21/2022 08/05/2024 Assessment & Plan (05/30/2023 7:26 PM INSPECTOR PENETRANT): Assessment: She also has new onset petechia on the right neck and posterior shoulder. Her bloodwork showed decrease platelet count on admission. She has a history of intermittent cytopenias in the past. No active bleeding at this time. Plan: Will continue to monitor for bleeding at this time - pt historically had pancytopenia during illness -Labs: PT, PTT/INR, CBC every other day Additional labs: Vit K level pending, PTT inhibitor lab clotted -Heme consulted, appreciate recs Assessment & Plan (05/29/2023 7:27 AM INSPECTOR PENETRANT): Assessment: She also has new onset petechia on the right neck and posterior shoulder. Her bloodwork showed decrease platelet count on admission. She has a history of intermittent cytopenias in the past. No active bleeding at this time. Plan: Will continue to monitor for bleeding at this time - pt historically had pancytopenia during illness -Labs: PT, PTT/INR, CBC every other day Additional labs: Vit K level, PTT inhibitor pending -Heme consulted, appreciate recs Assessment & Plan (05/28/2023 6:17 PM INSPECTOR PENETRANT): Assessment: She also has new onset petechia on the right neck and posterior shoulder. Her bloodwork showed decrease platelet count on admission. She has a history of intermittent cytopenias in the past. No active bleeding at this time. Plan: Will continue to monitor for bleeding at this time - pt historically had pancytopenia during illness -Labs: PT, PTT/INR, CBC every other day Additional labs: Vit K level, PTT inhibitor pending -Heme consulted, appreciate recs Assessment & Plan (05/27/2023 6:29 PM INSPECTOR PENETRANT): Assessment: She also has new onset petechia on the right neck and posterior shoulder. Her bloodwork showed decrease platelet count on admission. She has a history of intermittent cytopenias in the past. No active bleeding at this time. Plan: Will continue to monitor for bleeding at this time - pt historically had pancytopenia during illness -Labs: daily PT, PTT/INR, CBC, - Repeated PT/INR and PTT per heme recs. Additional labs: Vit K level, PTT inhibitor pending -Heme consulted, appreciate recs Assessment & Plan (05/26/2023 6:15 PM INSPECTOR PENETRANT): Assessment: She also has new onset petechia on the right neck and posterior shoulder. Her bloodwork showed decrease platelet count on admission. She has a history of intermittent cytopenias in the past. Plan: Will continue to monitor for bleeding at this time - pt historically had pancytopenia during illness -Labs: daily PT, PTT/INR, CBC, Additional labs: Vit K level, PTT inhibitor -Heme consulted, appreciate recs Assessment & Plan (05/25/2023 4:40 PM INSPECTOR PENETRANT): Assessment: She also has new onset petechia on the right neck and posterior shoulder. Her bloodwork showed decrease platelet count on admission. She has a history of intermittent cytopenias in the past. Plan: Will continue to monitor for bleeding at this time - pt historically had pancytopenia. -Labs: PT, PTT/INR, CBC -will consult heme Assessment & Plan (09/04/2022 11:50 AM CDT): Assessment: Pt with chronic cytopenias (anemia as well as intermittent thrombocytopenia and neutropenia) followed by hematology currently with anemia and thrombocytopenia. 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 She should be kept out of the peter hugger as much as possible to establish a baseline for her true need for warming. Her increased temperature fluctuation is likely due to her current illness. Plan: - discharge due to increased stability without use of peter hugger Assessment & Plan (08/06/2022 10:17 AM CDT): Assessment: Overnight, Donna was kept in the peter hugger for temperature control. She should be kept out of the peter hugger as much as possible to establish a baseline for her true need for warming. Her increased temperature fluctuation is likely due to her current illness. Plan: - Attempt to keep the peetr hugger off, and document temperatures prior to re- starting if needed Assessment & Plan (08/05/2022 7:25 AM CDT): Assessment: Overnight, Donna was kept in the peter hugger for temperature control. She should be kept out of the pteer hugger as much as possible to establish a baseline for her true need for warming. Plan: - Attempt to keep the peter hugger off, unless her temperature dips below 96F, and document temperatures prior to re-starting if needed Assessment & Plan (08/04/2022 11:58 AM CDT): Assessment: Overnight, Donna was kept in the peter hugger for temperature control, it is unclear if she was more hypothermic prior to the start of the peter hugger. She should be kept out of the peter hugger as much as possible to establish a baseline for her true need for warming. Plan: - Attempt to keep the peter hugger off, unless her temperature dips below 96F, and document temperatures prior to re-starting if needed Assessment & Plan (08/03/2022 10:20 AM CDT): Assessment: Overnight, Donna was kept in the peter hugger for temperature control, it is unclear if she was more hypothermic prior to the start of the peter hugger. She should be kept out of the peter hugger as much as possible to establish a baseline for her true need for warming. Plan: - Attempt to keep the petre hugger off, unless her temperature dips below 96F, and document temperatures prior to re-starting if needed Hypoxia 05/20/2022 03/17/2023 Assessment & Plan (09/03/2022 1:52 PM CDT): Assessment: Donna is a 21 y/o female with global developmental delay, spastic CP, gastrostomy dependence, chronic respiratory failure requiring night time CPAP admitted to the PICU for acute on chronic hypoxic respiratory failure. Chest x- ray showed bilateral lower lobe airspace opacities with volume loss are most consistent with atelectasis concern for aspiration pneumonia vs pneumonitis. She was weaned to room air and then transferred to general medicine team for further care. Plan: - Admit to General Medicine- Dr. Espinal - Continue respiratory support with oxygen PRN (Goal Saturations >90% awake, >88% asleep), wean as tolerated. - Nasal saline with Suctioning of nasopharynx Q4H - Tylenol 15mg/kg Q6H - Diet: Start Jevity 1.5 300 ml with 700 ml H2O) TID (11/18/15); then 250 ml water flushes after each feeding and 2000 with Miralax - Cardiorespiratory monitoring - Vital signs Q4H - Bronchial hygiene-Vest Q4 - Albuterol PRN - Continuous pulse oximetry - Monitor I&O's - Resume home medications. - Stop Clindamycin and Ceftriaxone Assessment & Plan (09/03/2022 1:28 PM CDT): Assessment: Donna is a 21 y/o female with global developmental delay, spastic CP, gastrostomy dependence, chronic respiratory failure requiring night time CPAP admitted to the PICU for acute on chronic hypoxic respiratory failure concern for aspiration pneumonia vs pneumonitis. Chest x-ray showed bilateral lower lobe airspace opacities with volume loss consistent with atelectasis. She was weaned to room air this AM. Plan: - Transfer to General Medicine-Dr. Espinal - Continue respiratory support with oxygen PRN (Goal Saturations >90% awake, >88% asleep), wean as tolerated. - Tylenol 15mg/kg Q6H - Diet: start Jevity 1.5 300 ml + 700 ml H2O +2 packets of beneprotein-give 330 ml TID (11/18/15) then water flushes 250 ml after each feeding and at 2000 with Miralax - Stop IV fluids - Cardiorespiratory monitoring - Vital signs Q4H - Continuous pulse oximetry - Monitor I&O's - Resume home medications - Stop Clindamycin and Ceftriaxone Assessment & Plan (09/03/2022 10:56 AM CDT): Assessment: Acute on chronic hypoxic respiratory failure of unclear etiology- possible Aspiration pneumonia/pneumonitis. Treated with BPAP for a few hours and able to wean of to open mask this morning. Xray from this morning at 5:00 demonstrates: Bilateral lower lobe airspace opacities with volume loss consistent with atelectasis. Probable bilateral pleural effusions and increasing soft tissue edema Plan: Continue respiratory monitoring . Wean off O2 mask as tolerated . Back to home meds Continue abx while cx pending. If cx negative, consider tx with Clinda for aspiration pneumonia x 7 days. When off mask resume feeds , If not tolerating off mask consider ND feeds . Assessment & Plan (05/30/2022 10:41 AM INSPECTOR PENETRANT): Assessment: On 05/29 from 1531 to 2011 Donna tolerated 20L 25% FiO2 HFNC (down from 30L 30%). During this time, her SpO2 was 96-98%. She is also doing well on her CPAP 35% at night, with SpO2 93-98%. Plan: Continue to wean to daytime goal of room air, as tolerated. For today 05/30, consider trial of 20L 21% FiO2. Continue to wean to nighttime goal of CPAP w/o O2. Consider trial of CPAP 30% FiO2 at bedtime tonight, and further decrease to 25% if SpO2 consistently >90% overnight. 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 With new infiltrates on chest XR, neutrophilic predominance on CBC, and hypothermia, patient's hypoxia is most likely secondary to infectious cause. She notably did recently start treatment for MRSA UTI (see relevant problem). While assessing patient on admission, she became acutely hypoxic requiring escalation of care to PICU where she was stabilized on CPAP 8cm w/ supplemental O2. She was transferred to Pulm service on 07/13 to continue treatment for acute on chronic respiratory failure 2/2 multifocal pneumonia and MRSA UTI. Plan: CVS: - CR monitors - vitals q4h RESP: - Continue nasal cannula as tolerated and titrate to maintain saturations >90% - CPAP 8cm at night - wean FiO2 as tolerated, goal of room air during the day and overnight - vest and albuterol q6h - continuous pulse oximetry - ensure that patient sits up in chair during day multiple times FEN/GI: - Home tube feeds ordered - edema noted on bilateral feet and R hand - Closely monitor I/O ID: - Continue IV cefepime 1g TID (07/12 - 07/21) - Continue doxycycline for tx of MRSA UTI (see relevant problem) - Follow speciation of sputum cultures HEME/ONC: - Patient with mild anemia and thrombocytopenia, follows in the [facility], likely medication side effect RENAL: - careful consideration of nephrotoxic medications given recent history of NILSON : - Patient requires straight caths q3h during the day NEURO: -Continue home neuro medications: - baclofen 10mg BID, clobazam 12.5mg BID, vimpat 50mg BID PSYCH/SOCIAL: Mother updated at bedside Assessment & Plan (07/18/2022 10:31 AM CDT): Assessment: Donna Herring is a 21 year old female with 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 With new infiltrates on chest XR, neutrophilic predominance on CBC, and hypothermia, patient's hypoxia is most likely secondary to infectious cause. She notably did recently start treatment for MRSA UTI (see relevant problem). While assessing patient on admission, she became acutely hypoxic requiring escalation of care to PICU where she was stabilized on CPAP 8cm w/ supplemental O2. She was transferred to Pulm service on 07/13 to continue treatment for acute on chronic respiratory failure 2/2 multifocal pneumonia and MRSA UTI. Plan: CVS: - CR monitors - vitals q4h RESP: - Continue nasal cannula as tolerated and titrate to maintain saturations >90% - CPAP 8cm at night - wean FiO2 as tolerated, goal of room air during the day and overnight - vest and albuterol q6h - continuous pulse oximetry - ensure that patient sits up in chair during day multiple times FEN/GI: - Home tube feeds ordered - edema noted on bilateral feet and R hand - Closely monitor I/O ID: - Continue IV cefepime 1g TID (07/12 - 07/21) - Continue doxycycline for tx of MRSA UTI (see relevant problem) - Follow speciation of sputum cultures HEME/ONC: - Patient with mild anemia and thrombocytopenia, follows in the [facility], likely medication side effect RENAL: - careful consideration of nephrotoxic medications given recent history of NILSON : - Patient requires straight caths q3h during the day NEURO: -Continue home neuro medications: - baclofen 10mg BID, clobazam 12.5mg BID, vimpat 50mg BID PSYCH/SOCIAL: Mother updated at bedside Assessment & Plan (07/17/2022 4:29 PM CDT): Assessment: Donna Herring is a 21 year old female with 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 With new infiltrates on chest XR, neutrophilic predominance on CBC, and hypothermia, patient's hypoxia is most likely secondary to infectious cause. She notably did recently start treatment for MRSA UTI (see relevant problem). While assessing patient on admission, she became acutely hypoxic requiring escalation of care to PICU where she was stabilized on CPAP 8cm w/ supplemental O2. She was transferred to Pulm service on 07/13 to continue treatment for acute on chronic respiratory failure 2/2 multifocal pneumonia and MRSA UTI. Plan: CVS: - CR monitors - vitals q4h RESP: - Continue nasal cannula as tolerated and titrate to maintain saturations >90% - CPAP 8cm at night - wean FiO2 as tolerated, goal of room air during the day and overnight - vest and albuterol q6h - continuous pulse oximetry - ensured that patient sits up in chair during day FEN/GI: - Home tube feeds ordered ID: - Continue IV cefepime 1g TID (07/12 - current) - Continue doxycycline for tx of MRSA UTI (see relevant problem) - Follow speciation of sputum cultures HEME/ONC: - Patient with mild anemia and thrombocytopenia, follows in the [facility], likely medication side effect RENAL: - careful consideration of nephrotoxic medications given recent history of NILSON : - Patient requires straight caths q3h during the day NEURO: -Continue home neuro medications: - baclofen 10mg BID, clobazam 12.5mg BID, vimpat 50mg BID PSYCH/SOCIAL: Mother updated at bedside Assessment & Plan (07/16/2022 1:08 PM CDT): Assessment: Donna Herring is a 21 year old female with 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 With new infiltrates on chest XR, neutrophilic predominance on CBC, and hypothermia, patient's hypoxia is most likely secondary to infectious cause. She notably did recently start treatment for MRSA UTI (see relevant problem). While assessing patient on admission, she became acutely hypoxic requiring escalation of care to PICU where she was stabilized on CPAP 8cm w/ supplemental O2. She was transferred to Pulm service on 07/13 to continue treatment for acute on chronic respiratory failure 2/2 multifocal pneumonia and MRSA UTI. Plan: CVS: - CR monitors - vitals q4h RESP: - Continue nasal cannula as tolerated and titrate to maintain saturations >90% - CPAP 8cm at night - wean FiO2 as tolerated, Attempted to wean to RA but pt desaturated to mid-80s, so now on 1L NC - vest and albuterol q6h - continuous pulse oximetry FEN/GI: - Home tube feeds ordered ID: - Continue IV cefepime 1g TID (07/12 - current) - Continue doxycycline for tx of MRSA UTI (see relevant problem) - Follow speciation of sputum cultures HEME/ONC: - Patient with mild anemia and thrombocytopenia, follows in the [facility], likely medication side effect RENAL: - careful consideration of nephrotoxic medications given recent history of NILSON : - Patient requires straight caths q3h during the day NEURO: -Continue home neuro medications: - baclofen 10mg BID, clobazam 12.5mg BID, vimpat 50mg BID PSYCH/SOCIAL: Mother updated at bedside Assessment & Plan (07/15/2022 11:40 AM CDT): Assessment: Donna Herring is a 21 year old female with 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 With new infiltrates on chest XR, neutrophilic predominance on CBC, and hypothermia, patient's hypoxia is most likely secondary to infectious cause. She notably did recently start treatment for MRSA UTI (see relevant problem). While assessing patient on admission, she became acutely hypoxic requiring escalation of care to PICU where she was stabilized on CPAP 8cm w/ supplemental O2. She was transferred to Pulm service on 07/13 to continue treatment for acute on chronic respiratory failure 2/2 multifocal pneumonia and MRSA UTI. Plan: CVS: - CR monitors - vitals q4h RESP: - Continue nasal cannula as tolerated and titrate to maintain saturations >90% - CPAP 8cm at night - wean FiO2 as tolerated - vest and albuterol q6h - continuous pulse oximetry FEN/GI: - Home tube feeds ordered ID: - Continue IV cefepime 1g TID (07/12 - current) - Continue doxycycline for tx of MRSA UTI (see relevant problem) - Follow speciation of sputum cultures HEME/ONC: - Patient with mild anemia and thrombocytopenia, follows in the [facility], likely medication side effect RENAL: - careful consideration of nephrotoxic medications given recent history of NILSON : - Patient requires straight caths q3h during the day NEURO: -Continue home neuro medications: - baclofen 10mg BID, clobazam 12.5mg BID, vimpat 50mg BID PSYCH/SOCIAL: Mother updated at bedside Assessment & Plan (07/14/2022 1:59 PM CDT): Assessment: Donna Herring is a 21 year old female with 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 With new infiltrates on chest XR, neutrophilic predominance on CBC, and hypothermia, patient's hypoxia is most likely secondary to infectious cause. She notably did recently start treatment for MRSA UTI (see relevant problem). While assessing patient on admission, she became acutely hypoxic requiring escalation of care to PICU where she was stabilized on CPAP 8cm w/ supplemental O2. She was transferred to Pulm service on 07/13 to continue treatment for acute on chronic respiratory failure 2/2 multifocal pneumonia and MRSA UTI. Plan: CVS: - CR monitors - vitals q4h RESP: - Continue nasal cannula as tolerated and titrate to maintain saturations >90% - CPAP 8cm in the evening; typically at bedtime, but expect will need to go on earlier around 1700 due to acute illness - wean FiO2 as tolerated - vest and albuterol q4h - continuous pulse oximetry FEN/GI: - Home tube feeds ordered ID: - Continue IV cefepime 1g TID (07/12 - current) - Transition macrobid to doxycycline for tx of MRSA UTI (see relevant problem) - Follow speciation of sputum cultures HEME/ONC: - Patient with mild anemia and thrombocytopenia, follows in the [facility], likely medication side effect RENAL: - careful consideration of nephrotoxic medications given recent history of NILSON : - Patient requires straight caths q3h during the day NEURO: -Continue home neuro medications: - baclofen 10mg BID, clobazam 12.5mg BID, vimpat 50mg BID PSYCH/SOCIAL: Mother updated at bedside Assessment & Plan (07/13/2022 3:08 PM CDT): Assessment: Donna Herring is a 21 year old female with 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 With new infiltrates on chest XR, neutrophilic predominance on CBC, and hypothermia, patient's hypoxia is most likely secondary to infectious cause. She notably did recently start treatment for MRSA UTI (see relevant problem). While assessing patient on admission, she became acutely hypoxic requiring escalation of care to PICU. She has since been stabilized on CPAP 8. With transition to CPAP, she has been doing well and was weaned to low flow nasal cannula. She is stable for transfer back to pulmonology service to continue treatment of presumed pneumonia. Plan: Transfer to Pulmonology Service CVS: - CR monitors - vitals q4h RESP: - Can continue nasal cannula as tolerated and titrate to maintain saturations >90% - CPAP 8cm in the evening; typically at bedtime, but expect will need to go on earlier around 1700 due to acute illness - wean FiO2 as tolerated - vest and albuterol q4h - continuous pulse oximetry FEN/GI: - Home tube feeds ordered ID: - Continue IV cefepime 1g TID - Transition macrobid to doxycycline for tx of MRSA UTI (see relevant problem) - Follow speciation of sputum cultures HEME/ONC: - Patient with mild anemia and thrombocytopenia, follows in the [facility], likely medication side effect RENAL: - careful consideration of nephrotoxic medications given recent history of NILSON : - Patient requires straight caths q3h during the day NEURO: -Continue home neuro medications: - baclofen 10mg BID, clobazam 12.5mg BID, vimpat 50mg BID PSYCH/SOCIAL: Mother updated at bedside Assessment & Plan (07/13/2022 12:15 PM CDT): Assessment: Donna Herring is a 21 year old female with 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 She was transferred to PICU from TCU on BiPAP support on 22/12. While in PICU she was started on CPAP 8 and tolerated it well with improvement in respiratory status. She is now stable for transfer back to TCU. Plan: Transfer to TCU CVS: - CR monitors - vitals q1h RESP: - CPAP 8, FiO2 35%; wean as tolerated - vest q4h - albuterol q4h prn - continuous pulse oximetry FEN/GI: - NPO - D5 LR @ maintenance ID: - Patient with likely pneumonia, but also being treated for MRSA UTI - given past history of NILSON with standard vancomycin dosing, continue nitrofurantoin - cefepime q8h - follow cultures HEME/ONC: - Patient with mild anemia and thrombocytopenia, follows in the [facility], likely medication side effect RENAL: - careful consideration of nephrotoxic medications given recent history of NILSON : - Patient requires straight caths q3h during the day NEURO: - Continue home antiepileptic medications (no need for bridge) - Baclofen, Keppra, Vimpat, Clobazam PSYCH/SOCIAL: Mother updated at bedside Assessment & Plan (07/13/2022 12:30 AM CDT): Assessment: Donna Herring is a 21 year old female with 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 and UTI. Plan: - Ceftriaxone and clindamycin discontinued on 09/03 given low suspicion for bacterial pneumonia. If pt were to clinically worsen including temperature instability, hypoxemia, focal exam findings, would restart clindamycin for presumed aspiration pneumonia - Continue nighttime CPAP - Continue respiratory support with oxygen PRN (Goal Saturations >90% awake, >88% asleep), wean as tolerated. - Monitor for hypothermia; baseline temps run from 96.5 to 97.0. If she is 96.0- 96.5, apply warm blankets. If 95.9 or below, use peter hugger. - Nasal saline with Suctioning of nasopharynx Q4H - Tylenol PRN for fever/pain - Diet: Jevity 1.5 300 ml with 700 ml H2O) TID (11/18/15); then 250 ml water flushes after each feeding and 2000 with Miralax - Cardiorespiratory monitoring - Vital signs Q4H - Bronchial hygiene, space to QID today - Albuterol PRN - Monitor I&O's - Resume home medications - Palliative care consult - DNR Assessment & Plan (03/12/2019 9:43 AM INSPECTOR PENETRANT): Assessment: Donna was admitted to the PICU with respiratory distress after several days of increased secretions. No specific aspiration event was noted. Lack of fever, leukocytosis, rapid improvement, and negative cultures to date would argue against a bacterial etiology. She continues to do well of respiratory support. Plan: - Plan for discharge to home - At baseline respiratory support: on RA during the night, CPAP: 7 overnight - continue home G-tube feeds - continue home meds - referral to ENT clinic (Re: Mother wishes follow up given Donna's aspiration history) Assessment & Plan (03/11/2019 1:21 PM INSPECTOR PENETRANT): Assessment: Donna was admitted to the PICU with respiratory distress after several days of increased secretions. No specific aspiration event was noted. Lack of fever, leukocytosis, rapid improvement, and negative cultures to date would argue against a bacterial etiology. Since admission, she has weaned from respiratory support and is at baseline per mother. Plan: - will d/c clindamycin - observe for recurrence of respiratory symptoms off antibiotics - At baseline respiratory support: on RA during the night, CPAP: 7 overnight - continue home G-tube feeds - continue home meds - Baclofen 10 mg BID - Keppra 750 mg BID - Tums 600 mg qD - Onfi 5 mg qAM, 7.5 mg qPM - Ferrous Sulfate 30 mg q8h - Flonase - Culturelle - MVI Adult - Miralax 17 g qD - Prilosec 20 mg qD - VS q4h - Monitor I/Os Respiratory distress 03/09/2019 019 Assessment & Plan (03/11/2019 12:14 PM INSPECTOR PENETRANT): Assessment: Donna is a 18 year old F with history of TBI, CP, epilepsy, G-tube dependence, and sleep apnea (on CPAP at night) who presents to ED for evaluation of respiratory distress, desaturations and increased oral secretions. RPP negative, CXR with LLL infiltrate which has been unchanged from the previous one. Her CBC with normal WBC. She was initially on BiPAP but currently on room air during the day anf CPAP of 7 overnight which is her home setting. She is stable to transfer to general medicine. Plan: Transfer to stefanie team, Dr. Crystal Limon Cardiorespiratory Vest therapy with hypertonic saline Currently stable on room air at day time and CPAP 7 at night as home settings Oxygen support PRN for saturations <90% FEN Continue home G- tube feeds Continue multivitamin, prilosec, miralax and lactobacillus Renal BUN and Cr WNL Endo On estradiol ID Afebrile Continue clindamycin until cultures negative for 48 hours Heme Hgb normal Continue ferrous sulfate Neuro/pain Stable with no seizures during admission Continue baclofen, onfi and keppra Klonopin PRN for cluster seizures Tylenol PRN for pain/fever Dyspnea and respiratory abnormalities 03/09/2019 03/12/2019 Chalazion left upper eyelid 06/25/2018 08/12/2020 Abdominal distension 08/12/2017 021 Ileus 07/18/2017 08/12/2020 Assessment & Plan (07/24/2017 2:01 PM CDT): Assessment: Donna was admitted with abdominal distention and ileus. Distention now resolved. Etiology of ileus likely infectious and represents post-infectious ileus. GI consulted who recommended lab work up which has thus far been reassuring. Consider an ileus 2/2 to autonomic instability as well. Reassured mother that pt tolerating feeds with no evidence of discomfort. Plan: -- Tolerated bolus feeds over 1 hour -- Continue Home Medications -Baclofen 10 mg BID -Calcium Carbonate 500 mg BID -Onfi 15 mg QHS -Flonase BID -Glycopyrrolate 0.2 mg QD -Culturelle 1 packet TID -Keppra 750 mg BID -MVI -Blisovi 24 Daily -Prilosec 20 mg QD -Miralax 17 g QD Assessment & Plan (07/23/2017 1:38 PM CDT): Assessment: Donna was admitted with abdominal distention and ileus. Distention now resolved. Etiology of ileus likely infectious and represents post-infectious ileus. GI consulted who recommended lab work up which has thus far been reassuring. Consider an ileus 2/2 to autonomic instability as well. Plan: -- Tolerated bolus feeds over 2 hours well, will run over 1 hour today -- Continue Home Medications -Baclofen 10 mg BID -Calcium Carbonate 500 mg BID -Onfi 15 mg QHS -Flonase BID -Glycopyrrolate 0.2 mg QD -Culturelle 1 packet TID -Keppra 750 mg BID -MVI -Blisovi 24 Daily -Prilosec 20 mg QD -Miralax 17 g QD Assessment & Plan (07/23/2017 1:08 PM CDT): Assessment: Donna was admitted with abdominal distention and ileus. Distention now resolved. Etiology of ileus likely infectious and represents post-infectious ileus. GI consulted who recommended lab work up which has thus far been reassuring. Consider an ileus 2/2 to autonomic instability as well. Plan: -- Tolerated continuous feeds well, will consolidate feeds to bolus feeds over 2 hours -- Continue Home Medications -Baclofen 10 mg BID -Calcium Carbonate 500 mg BID -Onfi 15 mg QHS -Flonase BID -Glycopyrrolate 0.2 mg QD -Culturelle 1 packet TID -Keppra 750 mg BID -MVI -Blisovi 24 Daily -Prilosec 20 mg QD -Miralax 17 g QD Assessment & Plan (07/22/2017 2:22 PM CDT): Assessment: Donna was admitted with abdominal distention and ileus. Distention now resolved. Etiology of ileus likely infectious and represents post-infectious ileus. GI consulted who recommended lab work up which has thus far been reassuring. Consider an ileus 2/2 to autonomic instability as well. Plan: -- Tolerated continuous feeds well, will consolidate feeds to bolus feeds over 2 hours -- Continue Home Medications -Baclofen 10 mg BID -Calcium Carbonate 500 mg BID -Onfi 15 mg QHS -Flonase BID -Glycopyrrolate 0.2 mg QD -Culturelle 1 packet TID -Keppra 750 mg BID -MVI -Blisovi 24 Daily -Prilosec 20 mg QD -Miralax 17 g QD Assessment & Plan (07/22/2017 11:49 AM CDT): Assessment: Donna was admitted with abdominal distention and ileus. Distention now resolved. Etiology of ileus likely infectious and represents post-infectious ileus. GI consulted who recommended lab work up which has thus far been reassuring. Consider an ileus 2/2 to autonomic instability as well. Plan: -- Tolerated continuous feeds well, will consolidate feeds to bolus feeds over 2 hours -- Continue Home Medications -Baclofen 10 mg BID -Calcium Carbonate 500 mg BID -Onfi 15 mg QHS -Flonase BID -Glycopyrrolate 0.2 mg QD -Culturelle 1 packet TID -Keppra 750 mg BID -MVI -Blisovi 24 Daily -Prilosec 20 mg QD -Miralax 17 g QD Assessment & Plan (07/21/2017 9:52 AM CDT): Assessment: Donna was admitted with abdominal distention and ileus. Distention now resolved. Etiology of ileus likely infectious and represents post-infectious ileus. GI consulted who recommended lab work up which has thus far been reassuring. Consider an ileus 2/2 to autonomic instability as well. Plan: -- Will discuss plan to restart feeds (slow rate, continuous and increasing slowly as tolerated) with GI -- Continue Home Medications -Baclofen 10 mg BID -Calcium Carbonate 500 mg BID -Onfi 15 mg QHS -Flonase BID -Glycopyrrolate 0.2 mg QD -Culturelle 1 packet TID -Keppra 750 mg BID -MVI -Blisovi 24 Daily -Prilosec 20 mg QD -Miralax 17 g QD Assessment & Plan (07/21/2017 9:00 AM CDT): Assessment: Donna was admitted with abdominal distention and ileus noted on abdominal films. Distention now resolved but nursing reports large amount of air released with opening G-button. Etiology of ileus likely infectious and represents post- infectious ileus. She also has a h/o multiple UTIs (at least 5 in the last 4 months) resulting in multiple antibiotic courses. GI consulted who recommended lab work up which has thus far been reassuring. Consider an ileus 2/2 to autonomic instability. Plan: -- GI consulted, appreciate recs (Re: Donna has been followed by clinic but not seen recently; Input regarding re-introduction of feeds / further evaluation of motility, a significant parental concern) -- Home CPAP overnight -- Continue Home Medications -Baclofen 10 mg BID -Calcium Carbonate 500 mg BID -Onfi 15 mg QHS -Flonase BID -Glycopyrrolate 0.2 mg QD -Culturelle 1 packet TID -Keppra 750 mg BID -MVI -Blisovi 24 Daily -Prilosec 20 mg QD -Miralax 17 g QD Assessment & Plan (07/20/2017 12:28 PM CDT): Assessment: Donna was admitted with abdominal distention and ileus noted on abdominal films. Distention now resolved but nursing reports large amount of air released with opening G-button. Etiology of ileus likely infectious and represents post- infectious ileus. She also has a h/o multiple UTIs (at least 5 in the last 4 months) resulting in multiple antibiotic courses. GI consulted. Plan: -- GI consulted, appreciate recs (Re: Donna has been followed by clinic but not seen recently; Input regarding re-introduction of feeds / further evaluation of motility, a significant parental concern) -- Home CPAP overnight -- Continue Home Medications -Baclofen 10 mg BID -Calcium Carbonate 500 mg BID -Onfi 15 mg QHS -Flonase BID -Glycopyrrolate 0.2 mg QD -Culturelle 1 packet TID -Keppra 750 mg BID -MVI -Blisovi 24 Daily -Prilosec 20 mg QD -Miralax 17 g QD Assessment & Plan (07/20/2017 12:07 PM CDT): Assessment: Donna was admitted with abdominal distention and ileus noted on abdominal films. Distention now resolved but nursing reports large amount of air released with opening G-button. Etiology of ileus likely infectious and represents post- infectious ileus. She also has a h/o multiple UTIs (at least 5 in the last 4 months) resulting in multiple antibiotic courses. Plan: -- Will consult GI (Re: Donna has been followed by clinic but not seen recently; Input regarding re-introduction of feeds / further evaluation of motility, a significant parental concern -- Home CPAP overnight -- Continue Home Medications -Baclofen 10 mg BID -Calcium Carbonate 500 mg BID -Onfi 15 mg QHS -Flonase BID -Glycopyrrolate 0.2 mg QD -Culturelle 1 packet TID -Keppra 750 mg BID -MVI -Blisovi 24 Daily -Prilosec 20 mg QD -Miralax 17 g QD Assessment & Plan (07/19/2017 4:08 PM CDT): Assessment: Donna was admitted with abdominal distention. This resolved after passage of large, liquid BM. Stool studies are pending. Frequent antibiotic use over the past few months may be contributing factor. Surgery also concern for possible septic ileus given recent pseudomonas UTI. Donna has been restarted on her home diet today, will monitor. UA x2 not concerning for UTI at this time. Plan: -- Serial Abdominal Exam --Will restart home diet today -- VS Q8H -- I/O -- Home CPAP overnight -- Straight Cath 4x Daily -- Surgery is following, appreciate their recommendations -- Continue Home Medications -Baclofen 10 mg BID -Calcium Carbonate 500 mg BID -Onfi 15 mg QHS -Flonase BID -Glycopyrrolate 0.2 mg QD -Culturelle 1 packet TID -Keppra 750 mg BID -MVI -Blisovi 24 Daily -Prilosec 20 mg QD -Miralax 17 g QD -- Holding off on treatment for UTI for now, repeat UA not concerning this AM Assessment & Plan (07/19/2017 3:32 PM CDT): Assessment: Donna Herring is a 16 y.o. female with history of CP (2/2 OSCAR during infancy), static encephalopathy, seizures, neurogenic bladder with urinary retention, frequent UTI's (Hx of pseudomonas), g-tube dependency, NUBIA (CPAP O/N) who presents with progressive abdominal distention for the past 5 days. KUB on presentation was concerning for ileus vs. Obstruction. Abdominal distention resolved after large, NB, liquid BM in the ED and again upon arrival to the floor. Stool studies are pending. Frequent antibiotic use over the past few months may be contributing factor. Surgery also concern for possible septic ileus given recent pseudomonas UTI. Donna has been restarted on her home diet today, will monitor. UA x2 not concerning for UTI at this time. Plan: -- Serial Abdominal Exam --Will restart home diet today -- VS Q8H -- I/O -- Home CPAP overnight -- Straight Cath 4x Daily -- Surgery is following, appreciate their recommendations -- Continue Home Medications -Baclofen 10 mg BID -Calcium Carbonate 500 mg BID -Onfi 15 mg QHS -Flonase BID -Glycopyrrolate 0.2 mg QD -Culturelle 1 packet TID -Keppra 750 mg BID -MVI -Blisovi 24 Daily -Prilosec 20 mg QD -Miralax 17 g QD -- Holding off on treatment for UTI for now, repeat UA not concerning this AM Assessment & Plan (07/18/2017 10:37 PM CDT): Assessment: Donna Herring is a 16 y.o. female with history of CP (2/2 OSCAR during infancy), static encephalopathy, seizures, neurogenic bladder with urinary retention, frequent UTI's (Hx of pseudomonas), g-tube dependency, NUBIA (CPAP O/N) who presents with progressive abdominal distention for the past 5 days. KUB on presentation was concerning for ileus vs. Obstruction. Abdominal distention resolved after large, NB, liquid BM in the ED and again upon arrival to the floor. Stool studies are pending. Frequent antibiotic use over the past few months may be contributing factor. Surgery also concern for possible septic ileus given recent pseudomonas UTI. They recommend restarting antibiotics for UTI. Donna will be admitted for bowel rest and serial abdominal exams. Surgery is following. Plan: -- Admit to General Pediatrics, Dr. Limon -- VS Q8H -- I/O -- Home CPAP overnight -- Straight Cath 4x Daily -- NPO for now to provide bowel rest -- Serial Abdominal Exam -- Surgery is following, appreciate their recommendations -- Continue Home Medications -Baclofen 10 mg BID -Calcium Carbonate 500 mg BID -Onfi 15 mg QHS -Flonase BID -Glycopyrrolate 0.2 mg QD -Culturelle 1 packet TID -Keppra 750 mg BID -MVI -Blisovi 24 Daily -Prilosec 20 mg QD -Miralax 17 g QD -- Holding off on treatment for UTI for now, will repeat UA in the AM Urinary tract infection without hematuria 07/03/2017 07/20/2017 Assessment & Plan (07/07/2017 10:04 AM CDT): Assessment: Donna Herring is a 16 y.o. female with history of CP, static encephalopathy, urinary retention, seizures, neurogenic bladder, and g-tube dependence with pseudomonas UTI with limited sensitivities. Pt required inpatient admission for IV antibiotics. Clinically, seems to be responding to treatment. Transition to po abx. Plan: -straight cath 4x per day -Strict I/Os - vitals q4h - PO Cipro to complete a 10 day course - Follow repeat urine cx - Follow up with Dr. Camacho scheduled for 07/15 - Per Nephrology recs, flush with half water and half cranberry juice to help acidify urine and decrease frequency of UTIs in the future Assessment & Plan (07/06/2017 10:21 AM CDT): Assessment: Donna Herring is a 16 y.o. female with history of CP, static encephalopathy, urinary retention, seizures, neurogenic bladder, and g-tube dependence with pseudomonas UTI with limited sensitivities. Pt requires inpatient admission for IV antibiotics. Clinically, seems to be responding to treatment. Plan: -straight cath 4x per day, monitor volumes, consider jernigan if she continues to have high volumes from straight cath (>500) -Strict I/Os - vitals q4h - ID consulted for antibiotic selection given history of NILSON. - continue IV cefepime for now. Will plan to switch to PO Cipro tomorrow. - Follow repeat urine cx - Follow up with Dr. Camacho scheduled for 07/15 - Per Nephrology recs, flush with half water and half cranberry juice to help acidify urine and decrease frequency of UTIs in the future Assessment & Plan (07/06/2017 9:53 AM CDT): Assessment: Donna Herring is a 16 y.o. female with history of CP, static encephalopathy, urinary retention, seizures, neurogenic bladder, and g-tube dependence with pseudomonas UTI with limited sensitivities. Pt requires inpatient admission for IV antibiotics. Clinically, seems to be responding to treatment. Plan: -straight cath 4x per day, monitor volumes, consider jernigan if she continues to have high volumes from straight cath (>500) -Strict I/Os - vitals q4h - ID consulted for antibiotic selection given history of NILSON. - continue IV cefepime for now. Will plan to switch to PO Cipro tomorrow. - Follow repeat urine cx - Follow up with Dr. Camacho scheduled for 07/15 - Per Nephrology recs, flush with half water and half cranberry juice to help acidify urine and decrease frequency of UTIs in the future Assessment & Plan (07/05/2017 11:54 AM CDT): Assessment: Donna Herring is a 16 y.o. female with history of CP, static encephalopathy, urinary retention, seizures, neurogenic bladder, and g-tube dependence with pseudomonas UTI with limited sensitivities. Pt requires inpatient admission for IV antibiotics. Clinically, seems to be responding to treatment. Plan: -straight cath 4x per day, monitor volumes, consider jernigan if she continues to have high volumes from straight cath (>500) -Strict I/Os - vitals q4h - IV Cefepime - Repeat urine cx tonight after 48 hours of antibiotics - ID consulted for antibiotic selection given highly resistant Pseudomonas and history of NILSON. Ok to switch to PO Cipro tomorrow. - Follow up with Dr. Camacho on 07/15 - Will change flushes to half water and half cranberry juice to help acidify urine and decrease frequency of UTIs in the future Assessment & Plan (07/05/2017 11:19 AM CDT): Assessment: Donna Herring is a 16 y.o. female with history of CP, static encephalopathy, urinary retention, seizures, neurogenic bladder, and g-tube dependence with pseudomonas UTI with limited sensitivities. Pt requires inpatient admission for IV antibiotics. Clinically, seems to be responding to treatment. Plan: -straight cath 4x per day, monitor volumes, consider jernigan if she continues to have high volumes from straight cath (>500) -Strict I/Os - vitals q4h - IV Cefepime - Repeat urine cx - ID consulted for antibiotic selection given highly resistant Pseudomonas and history of NILSON - Follow up with Dr. Camacho on 07/15 - Will change half of water to cranberry juice to help acidify urine and decrease frequency of UTIs in the future Assessment & Plan (07/04/2017 2:44 PM CDT): Donna Herring is a 16 y.o. female with history of CP, static encephalopathy, urinary retention, seizures, neurogenic bladder, and g-tube dependence (all secondary to OSCAR during infancy) who presents as direct admission from Nephrology clinic for IV antibiotics for UTI. Pt had urine culture on 07/01 growing Pseudomonas aeruginosa that is resistant to several antibiotics. Etiology of recurrent UTIs is likely due to urinary retention from neurogenic bladder. Pt requires inpatient admission for IV antibiotics. Plan: -straight cath 4x per day -Strict I/Os - vitals q4h - IV Cefepime - ID consulted for antibiotic selection given highly resistant Pseudomonas and history of NILSON - Urology consult for urinary retention - consider jernigan if she continues to have high volumes from straight cath (>500) - do not anticipate any other changes at this time. Pt has follow up with Dr. Camacho on 07/15 - Per Renal recs, consider switching half of water to cranberry juice to help acidify urine and decrease UTIs Assessment & Plan (07/04/2017 12:33 PM CDT): Donna Herring is a 16 y.o. female with history of CP, static encephalopathy, urinary retention, seizures, neurogenic bladder, and g-tube dependence (all secondary to OSCAR during infancy) who presents as direct admission from Nephrology clinic for IV antibiotics for UTI. Pt had urine culture on 07/01 growing Pseudomonas aeruginosa that is resistant to several antibiotics. Etiology of recurrent UTIs is likely due to urinary retention from neurogenic bladder. Pt requires inpatient admission for IV antibiotics. Plan: -straight cath 4x per day -Strict I/Os - vitals q4h - IV Cefepime - ID consulted for antibiotic selection given highly resistant Pseudomonas and history of NILSON - Urology consult for urinary retention - consider jernigan if she continues to have high volumes from straight cath (>500) - do not anticipate any other changes at this time. Pt has follow up with Dr. Camacho on 07/15 - Per Renal recs, consider switching half of water to cranberry juice to help acidify urine and decrease UTIs Assessment & Plan (07/04/2017 11:19 AM CDT): Assessment: Culture positive for pseudomonas with intermediate susceptibility to cefepime. Questionably febrile overnight. UOP adequate. No blood in urine. No leukocytosis. Tolerating G-tube intake. History of recurrent UTIs since 03/24. Straight cathing 4x daily at home. Susceptibilities concerning for multi-drug resistant pathogens in the setting of recurrent UTI's. In the setting of possible fever and lethargy with a chronic neurogenic bladder and recent history of several UTI's and recent NILSON due to vancomycin, this is a complicated UTI needing inpatient management and IV antibiotics. Plan: --IV Cefepime 2000 mg BID --ID consult for proper antibiotic selection given complicated history --straight cath q6h --strict I/Os and follow BP's --daily renal function panel --continue current feeds to ensure adequate hydration --urology consult for recurrent UTIs Assessment & Plan (07/03/2017 5:37 PM CDT): Assessment: Culture positive for pseudomonas susceptible to cefepime. Questionably febrile. UOP not decreased. No blood in urine. No leukocytosis. Tolerating G- tube intake. History of recurrent UTIs since 03/24. Straight cathing 4x daily at home. Plan: --IV Cefepime 2000 mg BID --straight cath q6h --strict I/Os and follow BP's --renal function panel --continue current feeds to ensure adequate hydration --urology consult for recurrent UTIs Assessment & Plan (07/03/2017 6:56 PM CDT): Donna Herring is a 16 y.o. female with history of CP, static encephalopathy, urinary retention, seizures, neurogenic bladder, and g-tube dependence (all secondary to OSCAR during infancy) who presents as direct admission from Nephrology clinic for IV antibiotics for UTI. Pt had urine culture on 07/01 that grew Pseudomonas. She had recent UTI with same bacteria in May 2017 that was sensitive to Cefepime and only had intermediate sensitivity to Cipro. Etiology of recurrent UTIs is likely due to urinary retention from neurogenic bladder. Pt requires inpatient admission for IV antibiotics. Plan: -straight cath 4x per day -Strict I/Os - vitals q4h - IV Cefepime - Follow urine cultures. Call [phone] to check on OSH urine cx - Urology consult for urinary retention - Per Renal recs, consider switching half of water to cranberry juice to help acidify urine and decrease UTIs Acute pyelonephritis 06/22/2017 018 Assessment & Plan (06/23/2017 11:25 AM CDT): The UA was suspicious with leukocytes and nitrite positive. Urine culture growing only urogenital mellissa. She has a history of recurrent UTI due to neurogenic bladder and had a pseudomonas UTI earlier in the year. Now day #2 of IV Rocephin and clinically doing well. Will switch to PO Cipro to complete a full course of antibiotics. Home today. Assessment & Plan (06/22/2017 7:19 PM CDT): - urine cultures pending - UA consistent with UTI - patient febrile yesterday - continue rocephin - plan to deescalate with culture results. - continue to monitor. Assessment & Plan (06/22/2017 3:35 PM CDT): UA suspicious for UTI. Ucx pending. Continue IV Rocephin for now. Atelectasis 06/22/2017 07/20/2017 Assessment & Plan (06/23/2017 11:25 AM CDT): Has done well with vest therapy. CPAP and up in chair yesterday. Pulmonary consult appreciated. Plan to discharge home today. Assessment & Plan (06/22/2017 7:21 PM CDT): - discussed with pulmonology - will see in AM - recommend attempting positional changes with patient during acute desats as likely cause is obstruction - Possibly second to secretions with decreased glycopyrrolate - CPT vest ordered - continue suctioning PRN - continue to monitor. - CPAP at night as above - wean O2 as tolerated. Assessment & Plan (06/22/2017 3:38 PM CDT): Left lung base opacity seen on CXR. Donna has had some desats into the mid-80s during the day. Vest treatments and albuterol. She is followed by pulmonary so will notify them that Donna is here in-house. Oxygen desaturation 06/21/2017 07/21/19 18 Assessment & Plan (06/23/2017 10:10 AM CDT): Assessment: She is having intermittent episodes of non sustained desaturations. Diff dx includes upper airway obstruction - she has this with sleep and may have issues with positioning. Would consider repositioning with episodes to help with upper airway patency. Other causes include aspiration given the recent issues with her oral-motor tone. Her basilar atelectasis may be due to some aspirated saliva. Plan: Would consider adding bag mask breaths to her regimen to improve lung volumes and see if we can open up this area that may be associated with some VQ mismatch. This area dependent may lead to more VQ mismatch as well. Will follow with you. Yeast infection 06/15/2017 07/20/2017 Assessment & Plan (06/22/2017 7:18 PM CDT): Plan: -Diflucan 150 mg once; given on admission -Nystatin ointment TID to affected diaper area - monitor Assessment & Plan (06/21/2017 6:35 PM CDT): Mother reports white vaginal discharge and she has a history of yeast infections. She also applies nystatin cream to intertriginous folds of diaper area. Physical exam consistent with yeast infection. Plan: -Diflucan 150 mg once; given on admission -Nystatin ointment TID to affected diaper area Assessment & Plan (06/20/2017 5:23 PM CDT): Mother reports white vaginal discharge and she has a history of yeast infections. She also applies nystatin cream to intertriginous folds of diaper area. Physical exam consistent with yeast infection. Plan: -Diflucan 150 mg once; given on admission -Nystatin ointment TID to affected diaper area Assessment & Plan (06/19/2017 11:54 AM CDT): Mother reports white vaginal discharge and she has a history of yeast infections. She also applies nystatin cream to intertriginous folds of diaper area. Physical exam consistent with yeast infection. Plan: -Diflucan 150 mg once; given on admission -Nystatin ointment TID to affected diaper area Assessment & Plan (06/18/2017 5:12 PM CDT): Mother reports white vaginal discharge and she has a history of yeast infections. She also applies nystatin cream to intertriginous folds of diaper area. Physical exam consistent with yeast infection. Plan: -Diflucan 150 mg once; given on admission -Nystatin ointment TID to affected diaper area Assessment & Plan (06/17/2017 5:27 PM CDT): Mother reports white vaginal discharge and she has a history of yeast infections. She also applies nystatin cream to intertriginous folds of diaper area. Physical exam consistent with yeast infection. Plan: -Diflucan 150 mg once; given on admission -Nystatin ointment TID to affected diaper area Assessment & Plan (06/16/2017 12:07 PM CDT): Mother reports white vaginal discharge and she has a history of yeast infections. She also applies nystatin cream to intertriginous folds of diaper area. Physical exam consistent with yeast infection. Plan: -Diflucan 150 mg once -Nystatin ointment BID to affected diaper area Assessment & Plan (06/15/2017 12:17 PM INSPECTOR PENETRANT): Mother reports white vaginal discharge and she has a history of yeast infections. She also applies nystatin cream to intertriginous folds of diaper area. Physical exam consistent with yeast infection. Plan: -Diflucan 150 mg once -Nystatin ointment BID to affected diaper area Assessment & Plan (06/15/2017 4:31 AM INSPECTOR PENETRANT): Mother reports white vaginal discharge and she has a history of yeast infections. She also applies nystatin cream to intertriginous folds of diaper area. Physical exam consistent with yeast infection. Plan: -Diflucan 150 mg once -Nystatin ointment BID to affected diaper area Slow transit constipation 06/14/2017 Assessment & Plan (06/22/2017 7:16 PM CDT): Donna Herring is a 16 y.o. 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 The most likely etiology is slow transit constipation. KUB does not appear consistent with obstruction at this time and surgery does not recommend surgical intervention. Improved. Plan: - resolved. - glycopyrrolate decreased to 0.5ml BID; continue - continue home miralax regiment - doing well on home feeding regiment - continue to monitor Assessment & Plan (06/21/2017 6:34 PM CDT): Donna Herring is a 16 y.o. 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 The most likely etiology is slow transit constipation. KUB does not appear consistent with obstruction at this time and surgery does not recommend surgical intervention. Improved. Plan: - glycopyrrolate decreased to 0.5ml BID; continue - continue home miralax regiment - doing well on home feeding regiment - continue to monitor Assessment & Plan (06/20/2017 5:23 PM CDT): Donna Herring is a 16 y.o. 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 The most likely etiology is slow transit constipation. KUB does not appear consistent with obstruction at this time and surgery does not recommend surgical intervention. Plan: - glycopyrrolate decreased to 0.5ml BID; continue - continue home miralax regiment - doing well on home feeding regiment - Surgery and GI following appreciate recommendations - continue to monitor - if patient tolerates home respiratory support regiment and wheel chair today, possible discharge tomorrow. Assessment & Plan (06/19/2017 11:52 AM CDT): Donna Herring is a 16 y.o. 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 The most likely etiology is slow transit constipation. KUB does not appear consistent with obstruction at this time and surgery does not recommend surgical intervention. Plan: - glycopyrrolate decreased to 0.5ml BID yesterday - continue home miralax regiment - feeds restarted yesterday, continue to monitor -Surgery and GI following appreciate recommendations - continue to monitor Assessment & Plan (06/18/2017 5:09 PM CDT): Donna Herring is a 16 y.o. 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 The most likely etiology is slow transit constipation. KUB does not appear consistent with obstruction at this time and surgery does not recommend surgical intervention. Plan: - glycopyrrolate decreased to 0.5ml BID - continue home miralax regiment - feeds restarted -Surgery and GI following appreciate recommendations - continue to monitor Assessment & Plan (06/17/2017 5:25 PM CDT): Donna Herring is a 16 y.o. 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 The most likely etiology is slow transit constipation. KUB does not appear consistent with obstruction at this time and surgery does not recommend surgical intervention. Plan: -Golytely continuous until stools are liquid and mostly clear - Dulcolax suppository added -Surgery and GI following appreciate recommendations Assessment & Plan (06/16/2017 12:08 PM CDT): Donna Herring is a 16 y.o. 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 The most likely etiology is slow transit constipation. KUB does not appear consistent with obstruction at this time and surgery does not recommend surgical intervention. Plan: -Golytely 200mL/hr continuous until stools are liquid and mostly clear -Discontinue normal saline enemas -Surgery following appreciate recommendations Assessment & Plan (06/15/2017 12:15 PM INSPECTOR PENETRANT): Donna Herring is a 16 y.o. 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 The most likely etiology is slow transit constipation. KUB does not appear consistent with obstruction at this time and surgery does not recommend surgical intervention. Plan: -Golytely 20 mL/kg over 5 hours (200 mL/hr) -Normal saline enemas Q8 -Surgery following appreciate recommendations Assessment & Plan (06/15/2017 4:20 AM INSPECTOR PENETRANT): Donna Herring is a 16 y.o. 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 The most likely etiology is slow transit constipation. KUB does not appear consistent with obstruction at this time and surgery does not recommend surgical intervention. Plan: -Golytely 20 mL/kg over 5 hours (200 mL/hr) -Normal saline enemas Q8 -Surgery to re-assess in the morning Decreased urine output 06/14/201707/20 Assessment & Plan (06/23/2017 11:26 AM CDT): Secondary to pre-renal etiology that is now completely resolved. Assessment & Plan (06/22/2017 7:16 PM CDT): - resolved; good UOP - history of NILSON, renal function back to baseline - continue to monitor. Assessment & Plan (06/22/2017 3:34 PM CDT): Initially presented with low UOP. That is now resolved. Donna had a h/o NILSON about a month ago. Now with apparently normal Serum Creatinine of 0.43. She has a neurogenic bladder and gets CIC of the bladder QID. No acute renal issues at this time. Assessment & Plan (06/21/2017 6:35 PM CDT): Donna Herring is a 16 y.o. 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 The etiology of her decreased urine output is unclear. Her labs do not point to an infectious etiology. Her UA is not consistent with UTI. Her history does not reveal fluid losses and she has been tolerating her feeds. She will need to be monitored to ensure adequate urine output and nutrition. Possible third spacing of fluids causing patient to be intravascularly dry, no LE edema, question possible ascites. Abdominal ultrasound ruled out ascites. Increased abdominal fullness on 06/16, thought to be due to fluid overload with Golytely and IVF. Plan: - continues to have good UOP -Bladder scan Q4 hours, cath for volumes greater than 200 mL -Strict I/Os -Continue Prophylactic bactrim -Nutrition consulted; appreciate recommendations -Continue home meds -PRN albuterol -Flonase QD - UA pending - plan to start rocephin if positive. Assessment & Plan (06/20/2017 5:22 PM CDT): Donna Herring is a 16 y.o. 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 The etiology of her decreased urine output is unclear. Her labs do not point to an infectious etiology. Her UA is not consistent with UTI. Her history does not reveal fluid losses and she has been tolerating her feeds. She will need to be monitored to ensure adequate urine output and nutrition. Possible third spacing of fluids causing patient to be intravascularly dry, no LE edema, question possible ascites. Abdominal ultrasound ruled out ascites. Increased abdominal fullness on 06/16, thought to be due to fluid overload with Golytely and IVF. Plan: - continues to have good UOP -Bladder scan Q4 hours, cath for volumes greater than 200 mL -Strict I/Os -Continue Prophylactic bactrim -Nutrition consulted; appreciate recommendations -Continue home meds -PRN albuterol -Flonase QD Assessment & Plan (06/19/2017 11:53 AM CDT): Donna Herring is a 16 y.o. 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 The etiology of her decreased urine output is unclear. Her labs do not point to an infectious etiology. Her UA is not consistent with UTI. Her history does not reveal fluid losses and she has been tolerating her feeds. She will need to be monitored to ensure adequate urine output and nutrition. Possible third spacing of fluids causing patient to be intravascularly dry, no LE edema, question possible ascites. Abdominal ultrasound ruled out ascites. Increased abdominal fullness on 06/16, thought to be due to fluid overload with Golytely and IVF. Plan: - DC IV fluids; expected UOP of 1500ml is unlikely due to patient's current fluid intakes. -Bladder scan Q4 hours, cath for volumes greater than 200 mL -Strict I/Os -Continue Prophylactic bactrim -Nutrition consulted -Continue home meds -PRN albuterol -Flonase QD Assessment & Plan (06/18/2017 5:10 PM CDT): Donna Herring is a 16 y.o. 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 The etiology of her decreased urine output is unclear. Her labs do not point to an infectious etiology. Her UA is not consistent with UTI. Her history does not reveal fluid losses and she has been tolerating her feeds. She will need to be monitored to ensure adequate urine output and nutrition. Possible third spacing of fluids causing patient to be intravascularly dry, no LE edema, question possible ascites. Abdominal ultrasound ruled out ascites. Increased abdominal fullness on 06/16, thought to be due to fluid overload with Golytely and IVF. Plan: - improved, decrease IV fluids since starting feeds. -Bladder scan Q4 hours, cath for volumes greater than 200 mL -Strict I/Os -Continue Prophylactic bactrim -Nutrition consulted -Continue home meds -PRN albuterol -Flonase QD Assessment & Plan (06/17/2017 5:26 PM CDT): Donna Herring is a 16 y.o. 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 The etiology of her decreased urine output is unclear. Her labs do not point to an infectious etiology. Her UA is not consistent with UTI. Her history does not reveal fluid losses and she has been tolerating her feeds. She will need to be monitored to ensure adequate urine output and nutrition. Possible third spacing of fluids causing patient to be intravascularly dry, no LE edema, question possible ascites. Abdominal ultrasound ruled out ascites. Increased abdominal fullness on 06/16, thought to be due to fluid overload with Golytely and IVF. Plan: -Hold home feeds due constipation, restart when cleanout completed - once Golytely stopped then will increase IVFs to 85ml/hr for maintenance. -Bladder scan Q4 hours, cath for volumes greater than 200 mL -Strict I/Os -Continue Prophylactic bactrim -Nutrition consulted -Continue home meds -PRN albuterol -Flonase QD Assessment & Plan (06/16/2017 12:12 PM CDT): Donna Herring is a 16 y.o. 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 The etiology of her decreased urine output is unclear. Her labs do not point to an infectious etiology. Her UA is not consistent with UTI. Her history does not reveal fluid losses and she has been tolerating her feeds. She will need to be monitored to ensure adequate urine output and nutrition. Possible third spacing of fluids causing patient to be intravascularly dry, no LE edema, question possible ascites. Abdominal ultrasound ruled out ascites. Increased abdominal fullness on 06/16, thought to be due to fluid overload with Golytely and IVF. Plan: -CBC, RFP, Mg, UA, UCx, CXR, KUB now -Hold home feeds due constipation, restart when cleanout completed -Due to large volume of Golytely, will make KVO IVF until completely cleaned out -Bladder scan Q4 hours, cath for volumes greater than 200 mL -Strict I/Os -Continue Prophylactic bactrim -Consider IVF fluids if UOP is abnormal -Nutrition consult -Continue home meds -PRN albuterol -Flonase QD Assessment & Plan (06/15/2017 12:18 PM INSPECTOR PENETRANT): Donna Herring is a 16 y.o. 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 The etiology of her decreased urine output is unclear. Her labs do not point to an infectious etiology. Her UA is not consistent with UTI. Her history does not reveal fluid losses and she has been tolerating her feeds. She will need to be monitored to ensure adequate urine output and nutrition. Possible third spacing of fluids causing patient to be intravascularly dry, no LE edema, question possible ascites. Plan: - hold home feeds due constipation; patient on IVFs -Bladder scan Q4 hours, cath for volumes greater than 200 mL -Strict I/Os -Continue Prophylactic bactrim -Consider IVF fluids if UOP is abnormal -Nutrition consult -Continue home meds -PRN albuterol -Flonase QD - Abdominal US today to rule out ascites. Assessment & Plan (06/15/2017 4:29 AM INSPECTOR PENETRANT): Donna Herring is a 16 y.o. 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 The etiology of her decreased urine output is unclear. Her labs do not point to an infectious etiology. Her UA is not consistent with UTI. Her history does not reveal fluid losses and she has been tolerating her feeds. She will need to be monitored to ensure adequate urine output and nutrition. Plan: -Start home feeding regimen -Bladder scan Q4 hours, cath for volumes greater than 200 mL -Strict I/Os -Continue Prophylactic bactrim -Consider IVF fluids if UOP is abnormal -Nutrition consult -Continue home meds -PRN albuterol -Flonase QD Hypothermia 05/11/2017 07/20/2017 Assessment & Plan (05/23/2017 7:02 AM INSPECTOR PENETRANT): Assessment: Donna has had intermittent hypothermia since admission to [facility] to a low of 94. 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 Uncertain as to wether this is a new problem or ongoing for some time. Endocrine evaluation with normal thyroid studies, and an appropriate early AM cortisol level. Concern for Onfi possibly contributing to hypothermia, however, upon review of records, pt was experiencing hypothermia since admission, prior to start of onfi on 05/08/16. AM cortisol with mild elevation 20.5 (19.4 upper limit nl). Temps overnight have improved slightly with her low being 95.2F- have been doing axillary temps, need to obtain rectal for more accurate assesment Plan: -Temp checks q4hrs - Will trial warming interventions that can be done at home tonight--extra blankets, can try hat at home - ID and neurology consulted, appreciate recs - Will look over meds carefully for possible rxs contributing to hypothermia and consider revising - Will consider med mgmt of hypothermia vs watchful waiting to see if her temps normalize after making more substantial recovery At this point, her temperatures are overall improved and requiring less intervention. Discussed in detail with mother--will hold off on any medication at this point and provide careful monitoring and techniques for passive warming at home. Will trend to determine if she is developing cold dysautonomia over time. Assessment & Plan (05/22/2017 10:07 PM INSPECTOR PENETRANT): Assessment: Donna has had intermittent hypothermia since admission to [facility] to a low of 94. 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 Uncertain as to wether this is a new problem or ongoing for some time. Endocrine evaluation with normal thyroid studies, and an appropriate early AM cortisol level. Concern for Onfi possibly contributing to hypothermia, however, upon review of records, pt was experiencing hypothermia since admission, prior to start of onfi on 05/08/16. AM cortisol with mild elevation 20.5 (19.4 upper limit nl). Plan: -Temp checks q4hrs - Will trial warming interventions that can be done at home tonight--extra blankets, ?hat? - ID and neurology consulted, appreciate recs - Will look over meds carefully for possible rxs contributing to hypothermia and consider revising - Will consider med mgmt of hypothermia vs watchful waiting to see if her temps normalize after making more substantial recovery At this point, her temperatures are overall improved and requiring less intervention. Discussed in detail with mother--will hold off on any medication at this point and provide careful monitoring and techniques for passive warming at home. Would still consider full infectious evaluation if she is consistently dropping temps, but will trend to determine if she is developing cold dysautonomia over time. Assessment & Plan (05/22/2017 1:50 PM INSPECTOR PENETRANT): Assessment: Donna has had intermittent hypothermia since admission to temps to a low of 94. 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 Uncertain as to wether this is a new problem or ongoing for some time. Endocrine evaluation with normal thyroid studies, and an appropriate early AM cortisol level. Concern for Onfi possibly contributing to hypothermia, however, upon review of records, pt was experiencing hypothermia since admission, prior to start of onfi on 05/08/16. AM cortisol with mild elevation 20.5 (19.4 upper limit nl). Plan: -Temp checks q4hrs - Will trial warming interventions that can be done at home tonight--extra blankets, ?hat? - ID and neurology consulted, appreciate recs - Will look over meds carefully for possible rxs contributing to hypothermia and consider revising - Will consider med mgmt of hypothermia vs watchful waiting to see if her temps normalize after making more substantial recovery At this point, her temperatures are overall improved and requiring less intervention. Discussed in detail with mother--will hold off on any medication at this point and provide careful monitoring and techniques for passive warming at home. Would still consider full infectious evaluation if she is consistently dropping temps, but will trend to determine if she is developing cold dysautonomia over time. Assessment & Plan (05/21/2017 1:29 PM INSPECTOR PENETRANT): Assessment: Donna has had intermittent hypothermia since admission to temps to a low of 94. 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 Uncertain as to wether this is a new problem or ongoing for some time. Endocrine evaluation with normal thyroid studies, and an appropriate early AM cortisol level. Concern for Onfi possibly contributing to hypothermia, however, upon review of records, pt was experiencing hypothermia since admission, prior to start of onfi on 05/08/16. AM cortisol with mild elevation 20.5 (19.4 upper limit nl). Plan: - Rectal temperature probe -Temp checks q4hrs - Will trial warming interventions that can be done at home tonight (extra blankets, ?hat?) If not effective, Peter hugger to maintain temp above 96 but not above 97 - ID and neurology consulted, appreciate recs - Will look over meds carefully for possible rxs contributing to hypothermia and consider revising - Will consider med mgmt of hypothermia vs watchful waiting to see if her temps normalize after making more substantial recovery Assessment & Plan (05/20/2017 4:48 PM INSPECTOR PENETRANT): Assessment: Donna has had intermittent hypothermia since admission to temps to a low of 94. 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 Uncertain as to wether this is a new problem or ongoing for some time. Neuro consulted, appreciate recs- pt may benefit from small amt of supplementary thyroid hormone despite TSH/fT4 wnl. Will consider further endocine workup/endo consult as appropriate/indicated. Concern for Onfi possibly contributing to hypothermia, however, upon review of records, pt was experiencing hypothermia since admission, prior to start of onfi on 05/08/16. AM cortisol with mild elevation 20.5 (19.4 upper limit nl). Plan: - Rectal temperature probe -Temp checks q4hrs - Will trial warming interventions that can be done at home tonight (extra blankets, ?hat?) If not effective, Peter hugger to maintain temp above 96 but not above 97 - AM cortisol with mild elevation, would not expect this to cause hypothermia - ID and neurology consulted, appreciate recs - Will look over meds carefully for possible rxs contributing to hypothermia and consider revising - Will consider med mgmt of hypothermia vs watchful waiting to see if her temps normalize after making more substantial recovery Assessment & Plan (05/19/2017 8:16 PM INSPECTOR PENETRANT): Assessment: Donna has had intermittent hypothermia since admission to temps to a low of 94. 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 Uncertain as to wether this is a new problem or ongoing for some time. Neuro consulted, appreciate recs- pt may benefit from small amt of supplementary thyroid hormone despite TSH/fT4 wnl. Will consider further endocine workup/endo consult as appropriate/indicated. Concern for Onfi possibly contributing to hypothermia, however, upon review of records, pt was experiencing hypothermia since admission, prior to start of onfi on 05/08/16 Plan: - Rectal temperature probe -Temp checks q4hrs - Peter hugger to maintain temp above 96 but not above 97 - Will consider obtaining repeat ESR/CRP in a few days to assess for improvement -AM cortisol ordered - ID and neurology consulted, appreciate recs Assessment & Plan (05/19/2017 1:18 AM INSPECTOR PENETRANT): Assessment: Donna has had intermittent hypothermia since admission to temps to a low of 94. 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 Uncertain as to wether this is a new problem or ongoing for some time. Neuro consulted, appreciate recs- pt may benefit from small amt of supplementary thyroid hormone despite TSH/fT4 wnl. Will consider further endocine workup/endo consult as appropriate/indicated. 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 Has epilepsy for which she is currently on keppra 30 mg/kg/day and onfi 20 mg nightly. Currently admitted for treatment of urosepsis. Initially had low temperatures thought related to sepsis but as infection clears, temperature variability continues to persist. Clinically stable. Prior encounters also show temperature variability. 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 It's reasonable to suspect that a degree of hypothalamic dysfunction may correlate with some pituitary dysfunction which may contribute severe illnesses. Recommendations: - Could consider endocrine specialists assistance in testing pituitary function to ensure she is not at risk with future infections. - Although T4 levels are WNL, thyroid hormone supplementation may assist with hypothermia and could be considered. Assessment & Plan (05/17/2017 11:00 PM INSPECTOR PENETRANT): Assessment: Donna has had intermittent hypothermia since admission to temps to a low of 94. It is unclear if this is caused by her repeat UTIs, her chronic encephalopathy, or another cause. Would expect infection to be less likely given clinical improvement and nearing of the end of UTI treatment course, but unable to completely rule out as urine culture remains in process. Inflammatory markers on 05/17 elevated, but no leukocytosis. No prior numbers to compare, so unclear if this represents a downtrending or not. Neurology consulted for potential neurologic etiology. Plan: - Rectal temperature probe -Temp checks q4hrs - Peter hugger to maintain temp above 96 but not above 97 - Will consider obtaining repeat ESR/CRP in a few days to assess for improvement - ID and neurology consulted, appreciate recs Assessment & Plan (05/16/2017 9:52 PM INSPECTOR PENETRANT): Assessment: Patient has had intermittent hypothermia since admission to temps to a low of 94. It is unclear if this is caused by her repeat UTIs, her chronic encephalopathy, or an endocrine disorder. Will continue to monitor with rectal temperature probe. Plan: -rectal temperature probe -continue to treat UTI as above -use bare hugger for temps <95 Assessment & Plan (05/16/2017 5:37 AM INSPECTOR PENETRANT): Assessment: Patient has had intermittent hypothermia since admission to temps to a low of 94. It is unclear if this is caused by her repeat UTIs, her chronic encephalopathy, or an endocrine disorder. Will continue to monitor with rectal temperature probe. Has not been a problem in the past 24hrs. Plan: -rectal temperature probe -continue to treat UTI as above -use bare hugger for temps <95 Assessment & Plan (05/15/2017 4:49 AM INSPECTOR PENETRANT): Assessment: Patient has had intermittent hypothermia since admission to temps to a low of 94. It is unclear if this is caused by her repeat UTIs, her chronic encephalopathy, or an endocrine disorder. Will continue to monitor with rectal temperature probe. Has not been a problem in the past 24hrs. Plan: -rectal temperature probe -continue to treat UTI as above -use bare hugger for temps <95 Assessment & Plan (05/14/2017 3:12 AM INSPECTOR PENETRANT): Assessment: Patient has had intermittent hypothermia since admission to temps to a low of 94. It is unclear if this is caused by her repeat UTIs, her chronic encephalopathy, or an endocrine disorder. Will continue to monitor with rectal temperature probe. Has not been a problem in the past 24hrs. Plan: -rectal temperature probe -continue to treat UTI as above -use bare hugger for temps <95 Assessment & Plan (05/12/2017 12:54 PM INSPECTOR PENETRANT): Assessment: Patient has had intermittent hypothermia since admission to temps to a low of 94. It is unclear if this is caused by her repeat UTIs, her chronic encephalopathy, or an endocrine disorder. Will continue to monitor with rectal temperature probe. Has not been a problem in the past 24hrs. Plan: -rectal temperature probe -continue to treat UTI as above -use bare hugger for temps <95 Assessment & Plan (05/11/2017 12:52 PM INSPECTOR PENETRANT): Assessment: Acute. Patient has had intermittent hypothermia since admission to temps of 94. It is unclear if this is caused by her repeat UTIs, her chronic encephalopathy, or endocrine disorder. Will continue to monitor with rectal temperature probe Plan: -rectal temperature probe -repeat TSH -continue to treat UTI as above -use bare hugger for temps <95 Pseudomonas urinary tract infection 05/10/2017 07/20/2017 Assessment & Plan (05/23/2017 6:59 AM INSPECTOR PENETRANT): Assessment: Remains admitted for continued treatment of Pseudomonas UTI after recovering from urosepsis from Enterococcus avium. Cathing regimen increased to q6hrs from original home schedule of BID and added bethanecol to assist with voiding and preventing urinary stasis. Urodynamics reveal that bladder does not contract until large volumes present (>700mL); recommend continued cath use and bethanacol Plan: - Cefepime complete 05/19/17 - VCUG And urodynamics confirm neurogenic bladder - Repeat urine culture ngtd- will follow - Straight cath q6hr to avoid urinary stasis if bladder scan shows urine > 300mL - Bethanechol 15mg TID per urology - feeds per recommendation of Nutrition (including protein supplement): 600 mL Jevity + 300 mL water + 4 scoops (28 grams) of beneprotein. -Provide 300 mL of formula mixture TID at 0700, 1100, 1600 (Please add an extra 50 mL of free water with each feed) -Water flushes, 250 mL after each bolus plus additional flush at 2000 - Holding home probiotics b/c on VSL and Culturelle - Continue home calcium carbonate, KCl, Prilosec, Flonase and Cuvposa and PRN miralax - Zofran PRN for nausea - Baseline RA during day, home CPAP 7, 21% at night Assessment & Plan (05/22/2017 10:06 PM INSPECTOR PENETRANT): Assessment: Remains admitted for continued treatment of Pseudomonas UTI after recovering from urosepsis from Enterococcus avium. Cathing regimen increased to q6hrs from original home schedule of BID and added bethanecol to assist with voiding and preventing urinary stasis. Urodynamics reveal that bladder does not contract until large volumes present (>700mL); recommend continued cath use and bethanacol Plan: - Cefepime complete 05/19/17 - VCUG And urodynamics confirm neurogenic bladder - Repeat urine culture ngtd- will follow - Straight cath q6hr to avoid urinary stasis if bladder scan shows urine > 300mL - Bethanechol increased to 15mg TID per urology - feeds per recommendation of Nutrition (including protein supplement): 600 mL Jevity + 300 mL water + 4 scoops (28 grams) of beneprotein. -Provide 300 mL of formula mixture TID at 0700, 1100, 1600 (Please add an extra 50 mL of free water with each feed) -Water flushes, 250 mL after each bolus plus additional flush at 2000 - Holding home probiotics b/c on VSL and Culturelle - Continue home calcium carbonate, KCl, Prilosec, Flonase and Cuvposa and PRN miralax - Zofran PRN for nausea - Baseline RA during day, home CPAP 7, 21% at night Assessment & Plan (05/22/2017 1:51 PM INSPECTOR PENETRANT): Assessment: Remains admitted for continued treatment of Pseudomonas UTI after recovering from urosepsis from Enterococcus avium. Cathing regimen increased to q6hrs from original home schedule of BID and added bethanecol to assist with voiding and preventing urinary stasis. Urodynamics reveal that bladder does not contract until large volumes present (>700mL); recommend continued cath use and bethanacol Plan: - Cefepime complete 05/19/17 - VCUG And urodynamics confirm neurogenic bladder - Repeat urine culture ngtd- will follow - Straight cath q6hr to avoid urinary stasis if bladder scan shows urine > 300mL - Bethanechol increased to 15mg TID per urology - feeds per recommendation of Nutrition (including protein supplement): 600 mL Jevity + 300 mL water + 4 scoops (28 grams) of beneprotein. -Provide 300 mL of formula mixture TID at 0700, 1100, 1600 (Please add an extra 50 mL of free water with each feed) -Water flushes, 250 mL after each bolus plus additional flush at 2000 - Holding home probiotics b/c on VSL and Culturelle - Continue home calcium carbonate, KCl, Prilosec, Flonase and Cuvposa and PRN miralax - Zofran PRN for nausea - Baseline RA during day, home CPAP 7, 21% at night Assessment & Plan (05/21/2017 1:30 PM INSPECTOR PENETRANT): Assessment: Remains admitted for continued treatment of Pseudomonas UTI after recovering from urosepsis from Enterococcus avium. Cathing regimen increased to q6hrs from original home schedule of BID and added bethanecol to assist with voiding and preventing urinary stasis. Urodynamics reveal that bladder does not contract until large volumes present (>700mL); recommend continued cath use and bethanacol Plan: - Cefepime complete 05/19/17 - VCUG today revealed large capacity bladder without evidence of vesicoureteral reflux - Results of urodynamic as above, report pending - Repeat urine culture ngtd- will follow - discontinued D5 1/2NS with KCl at 5mL/hr for KVO SLIV - Straight cath q6hr to avoid urinary stasis if bladder scan shows urine > 300mL - Restart Bethanechol 10mg TID - feeds per recommendation of Nutrition (including protein supplement): 600 mL Jevity + 300 mL water + 4 scoops (28 grams) of beneprotein. -Provide 300 mL of formula mixture TID at 0700, 1100, 1600 (Please add an extra 50 mL of free water with each feed) -Water flushes, 250 mL after each bolus plus additional flush at 2000 - Holding home probiotics b/c on VSL and Culturelle - Continue home calcium carbonate, KCl, Prilosec, Flonase and Cuvposa and PRN miralax - Zofran PRN for nausea - Baseline RA during day, home CPAP 7, 21% at night Assessment & Plan (05/20/2017 4:38 PM INSPECTOR PENETRANT): Assessment: Remains admitted for continued treatment of Pseudomonas UTI after recovering from urosepsis from Enterococcus avium. Cathing regimen increased to q6hrs from original home schedule of BID and added bethanecol to assist with voiding and preventing urinary stasis. Currently treating with IV cefepime with plan for VCUG and urodynamcis on 05/20 assuming infection is cleared. Plan: - Cefepime complete 05/19/17 - VCUG today revealed large capacity bladder without evidence of vesicoureteral reflux - Results of urodynamic as above, report pending - Repeat urine culture ngtd- will follow - discontinued D5 1/2NS with KCl at 5mL/hr for KVO SLIV - Straight cath q6hr to avoid urinary stasis if bladder scan shows urine > 300mL - Restart Bethanechol 10mg TID - feeds per recommendation of Nutrition (including protein supplement): 600 mL Jevity + 300 mL water + 4 scoops (28 grams) of beneprotein. -Provide 300 mL of formula mixture TID at 0700, 1100, 1600 (Please add an extra 50 mL of free water with each feed) -Water flushes, 250 mL after each bolus plus additional flush at 2000 - Holding home probiotics b/c on VSL and Culturelle - Continue home calcium carbonate, KCl, Prilosec, Flonase and Cuvposa and PRN miralax - Zofran PRN for nausea - Baseline RA during day, home CPAP 7, 21% at night Assessment & Plan (05/19/2017 8:16 PM INSPECTOR PENETRANT): Assessment: Remains admitted for continued treatment of Pseudomonas UTI after recovering from urosepsis from Enterococcus avium. Cathing regimen increased to q6hrs from original home schedule of BID and added bethanecol to assist with voiding and preventing urinary stasis. Currently treating with IV cefepime with plan for VCUG and urodynamcis on 05/20 assuming infection is cleared. Plan: - Cefepime complete - VCUG/urodynamic studies tomorrow - Repeat urine culture ngtd- will follow - D5 1/2NS with KCl at 5mL/hr for KVO - Straight cath q6hr to avoid urinary stasis if bladder scan shows urine > 300mL - Bethanechol 10mg TID- holding today (24h prior to VCUG per uro recs) - feeds per recommendation of Nutrition (including protein supplement): 600 mL Jevity + 300 mL water + 4 scoops (28 grams) of beneprotein. -Provide 300 mL of formula mixture TID at 0700, 1100, 1600 (Please add an extra 50 mL of free water with each feed) -Water flushes, 250 mL after each bolus plus additional flush at 2000 - Holding home probiotics b/c on VSL and Culturelle - Continue home calcium carbonate, KCl, Prilosec, Flonase and Cuvposa and PRN miralax - Zofran PRN for nausea - Baseline RA during day, home CPAP 7, 21% at night Assessment & Plan (05/19/2017 1:14 AM INSPECTOR PENETRANT): Assessment: Remains admitted for continued treatment of Pseudomonas UTI after recovering from urosepsis from Enterococcus avium. Cathing regimen increased to q6hrs from original home schedule of BID and added bethanecol to assist with voiding and preventing urinary stasis. Currently treating with IV cefepime with plan for VCUG and urodynamcis on 05/20 assuming infection is cleared. Plan: - Cefepime D10/10 - Repeat urine culture today, awaiting results - D5 1/2NS with KCl at 5mL/hr for KVO - Straight cath q6hr to avoid urinary stasis if bladder scan shows urine > 300mL - Bethanechol 10mg TID- holding tomorrow (24h prior to VCUG per uro recs) - feeds per recommendation of Nutrition (including protein supplement): 600 mL Jevity + 300 mL water + 4 scoops (28 grams) of beneprotein. -Provide 300 mL of formula mixture TID at 0700, 1100, 1600 (Please add an extra 50 mL of free water with each feed) -Water flushes, 250 mL after each bolus plus additional flush at 2000 - Holding home probiotics b/c on VSL and Culturelle - Continue home calcium carbonate, KCl, Prilosec, Flonase and Cuvposa and PRN miralax - Zofran PRN for nausea - Baseline RA during day, home CPAP 7, 21% at night Assessment & Plan (05/17/2017 11:05 PM INSPECTOR PENETRANT): Assessment: Remains admitted for continued treatment of Pseudomonas UTI after recovering from urosepsis from Enterococcus avium. Cathing regimen increased to q6hrs from original home schedule of BID and added bethanecol to assist with voiding and preventing urinary stasis. Currently treating with IV cefepime with plan for VCUG and urodynamcis on 05/20 assuming infection is cleared. Plan: - Cefepime D9/10 - Repeat urine culture today, awaiting results - D5 1/2NS with KCl at 5mL/hr for KVO - Straight cath q6hr to avoid urinary stasis if bladder scan shows urine > 300mL - Bethanechol 10mg TID; will need to hold the night prior to VCUG - feeds per recommendation of Nutrition (including protein supplement): 600 mL Jevity + 300 mL water + 4 scoops (28 grams) of beneprotein. -Provide 300 mL of formula mixture TID at 0700, 1100, 1600 (Please add an extra 50 mL of free water with each feed) -Water flushes, 250 mL after each bolus plus additional flush at 2000 - Holding home probiotics b/c on VSL and Culturelle - Continue home calcium carbonate, KCl, Prilosec, Flonase and Cuvposa and PRN miralax - Zofran PRN for nausea - Baseline RA during day, home CPAP 7, 21% at night Assessment & Plan (05/16/2017 9:52 PM INSPECTOR PENETRANT): Assessment: Culture positive for pseudomonas, which is susceptible to cefepime. Per ID recommendations, will continue with cefepime during admission. Recently treated for entercoccus avium urosepsis. Plan: - Cefepime 2g IV q12hrs, day 710 today- will complete course in hospital - will obtain VCUG once abx complete -Repeat UC in AM Assessment & Plan (05/16/2017 5:37 AM INSPECTOR PENETRANT): Assessment: Culture positive for pseudomonas, which is susceptible to cefepime. Per ID recommendations, will continue with cefepime during admission. Recently treated for entercoccus avium urosepsis. Plan: - Cefepime 2g IV q12hrs, day 6 today- will complete course in hospital - will obtain VCUG once abx complete Assessment & Plan (05/15/2017 4:49 AM INSPECTOR PENETRANT): Assessment: Culture positive for pseudomonas, which is susceptible to cefepime. Per ID recommendations, will continue with cefepime during admission. Recently treated for entercoccus avium urosepsis. Plan: - Cefepime 2g IV q12hrs, day 610 today- will complete course in hospital - will obtain VCUG once abx complete Assessment & Plan (05/14/2017 3:11 AM INSPECTOR PENETRANT): Assessment: Culture positive for pseudomonas, which is susceptible to cefepime. Per ID recommendations, will continue with cefepime during admission. Recently treated for entercoccus avium urosepsis. Plan: - Cefepime 2g IV q12hrs, day 10 today- will complete course in hospital - will obtain VCUG once abx complete Assessment & Plan (05/12/2017 1:33 PM INSPECTOR PENETRANT): Assessment: Culture positive for pseudomonas, which is susceptible to cefepime. Per ID recommendations, will continue with cefepime during admission. Recently treated for entercoccus avium urosepsis. Plan: - Cefepime 2g IV q12hrs, day 07/16 today - will obtain VCUG tomorrow Assessment & Plan (05/12/2017 12:54 PM INSPECTOR PENETRANT): Assessment: Positive urine culture and temp instability. Culture positive for pseudomonas, which is susceptible to cefepime. Per ID recommendations, will continue with cefepime during admission. Recently treated for entercoccus avium urosepsis. Plan: - Cefepime 2g IV q12hrs, day 07/16 today - ID following appreciate recs Assessment & Plan (05/11/2017 12:50 PM INSPECTOR PENETRANT): Assessment: Positive urine culture and temp instability. Culture positive for pseudomonas Recently treated for entercoccus avium urosepsis. Plan: - cefepime BID, will adjust as able with sensitivities - ID following appreciate recs Assessment & Plan (05/11/2017 7:47 AM INSPECTOR PENETRANT): Assessment: Positive urine culture and temp instability. Culture positive for NLFGNR. Recently treated for entercoccus avium urosepsis. Plan: - cefepime BID, will adjust as able with sensitivities - ID following appreciate recs Assessment & Plan (05/10/2017 12:59 PM INSPECTOR PENETRANT): Assessment: Positive urine culture and temp instability. Culture positive for NLFGNR. Recently treated for entercoccus avium urosepsis. Plan: - cefepime BID, will adjust as able with sensitivities - ID following appreciate recs Assessment & Plan (05/10/2017 12:10 PM INSPECTOR PENETRANT): Assessment: Again with positive urine culture and temp instability. Culture positive for NLFGNR. Plan: - cefepime BID, will adjust as able with sensitivities Hypokalemia 05/07/2017 05/16/2017 Assessment & Plan (05/16/2017 9:51 PM INSPECTOR PENETRANT): Assessment: Hypokalemia associated with NILSON. K 3.4 today. Plan: - continue to follow K on RFP and supplement as needed - KCL 15 mEq BID Assessment & Plan (05/16/2017 5:37 AM INSPECTOR PENETRANT): Assessment: Hypokalemia associated with NILSON. K 3.4 today. Plan: - continue to follow K on RFP and supplement as needed - KCL 15 mEq BID Assessment & Plan (05/15/2017 4:48 AM INSPECTOR PENETRANT): Assessment: Hypokalemia associated with NILSON. K 3.4 today. Plan: - continue to follow K on RFP and supplement as needed - KCL 15 mEq BID Assessment & Plan (05/14/2017 3:11 AM INSPECTOR PENETRANT): Assessment: Hypokalemia associated with NILSON. K 3.4 today. Plan: - continue to follow K on RFP and supplement as needed - KCL 15 mEq BID Assessment & Plan (05/12/2017 1:36 PM INSPECTOR PENETRANT): Assessment: Hypokalemia associated with NILSON. K 3.4 today. Plan: - continue to follow K on RFP and supplement as needed - KCL 15 mEq BID Assessment & Plan (05/12/2017 12:55 PM INSPECTOR PENETRANT): Assessment: Hypokalemia associated with NILSON. K 3.4 today. Plan: - continue to follow K on RFP and supplement as needed - KCL 15 mEq BID Assessment & Plan (05/11/2017 11:53 AM INSPECTOR PENETRANT): Assessment: Hypokalemia associated with NILSON. K at 3.4 today. Plan: - continue to follow K on RFP and supplement as needed Assessment & Plan (05/10/2017 12:57 PM INSPECTOR PENETRANT): Assessment: Hypokalemia associated with NILSON. K down to 3.3 today. Plan: - continue to follow K on RFP and supplement as needed Assessment & Plan (05/10/2017 12:13 PM INSPECTOR PENETRANT): Assessment: Hypokalemia associated with NILSON. K down to 3.3 today. Plan: - continue to follow K on RFP and supplement as needed Assessment & Plan (05/09/2017 5:36 PM INSPECTOR PENETRANT): Assessment: Hypokalemia associated with NILSON. K improved to 3.5 today. Plan: - continue to follow K on RFP Assessment & Plan (05/09/2017 5:00 PM INSPECTOR PENETRANT): Assessment: Hypokalemia associated with NILSON. K improved to 3.5 today. Plan: - continue to follow K on RFP Assessment & Plan (05/08/2017 3:26 PM INSPECTOR PENETRANT): Assessment: Hypokalemia associated with NILSON. K down to 3.0 today. Plan: - supplement with KCl today (40 mEq) - continue to follow K on RFP Assessment & Plan (05/08/2017 1:51 PM INSPECTOR PENETRANT): Assessment: Hypokalemia associated with NILSON. K down to 3.0 today. Plan: - supplement with KCl today (40 mEq) - continue to follow K on RFP Assessment & Plan (05/07/2017 4:46 PM INSPECTOR PENETRANT): Assessment: Hypokalemia associated with NILSON. Had improved but K down to 3.1 today Plan: - supplement with KCl today - continue to follow K on RFP Aspiration pneumonia 05/06/2017 025 Assessment & Plan (05/30/2023 7:27 PM INSPECTOR PENETRANT): Assessment: Donna is a 22 year old female that presents with worsening respiratory distress requiring increase in bleed in oxygen with her CPAP. She has history of aspiration pneumonia and recent chest xray findings suggestive of right lower lobe infiltrate. Plan: - change to oral augmentin BID (last dose 06/01 AM) - Pulm consulted, appreciated recs - pulmonary hygiene decreased to TID - supplemental oxygen as needed to keep saturations above 92 - CPAP home settings at night at this time will stay on V60 and potentially transition to home CPAP machine when staying on room air during the day - vitals q4 Assessment & Plan (05/29/2023 12:34 PM INSPECTOR PENETRANT): Assessment: Donna is a 22 year old female that presents with worsening respiratory distress requiring increase in bleed in oxygen with her CPAP. She has history of aspiration pneumonia and recent chest xray findings suggestive of right lower lobe infiltrate. Plan: - Continue IV Unasyn, treat for a total of 7 days (last dose 06/01 AM) - Pulm consulted, appreciated recs - pulmonary hygiene decreased to q6h - supplemental oxygen as needed to keep saturations above 92 - CPAP home settings at night at this time will stay on V60 and potentially transition to home CPAP machine when staying on room air during the day - vitals q4 Assessment & Plan (05/28/2023 6:19 PM INSPECTOR PENETRANT): Assessment: Donna is a 22 year old female that presents with worsening respiratory distress requiring increase in bleed in oxygen with her CPAP. She has history of aspiration pneumonia and recent chest xray findings suggestive of right lower lobe infiltrate. Plan: - Continue IV Unasyn, treat for a total of 7 days - Pulm consulted, appreciated recs - pulmonary hygiene decreased to q6h - supplemental oxygen as needed to keep saturations above 92 - CPAP home settings at night at this time will stay on V60 and potentially transition to home CPAP machine when staying on room air during the day - vitals q4 Assessment & Plan (05/27/2023 6:31 PM INSPECTOR PENETRANT): Assessment: Donna is a 22 year old female that presents with worsening respiratory distress requiring increase in bleed in oxygen with her CPAP. She has history of aspiration pneumonia and recent chest xray findings suggestive of right lower lobe infiltrate. Plan: - zosyn IV for coverage- will deescalate to Unasyn today given improvement in respiratory status - Pulm consulted, appreciated recs - pulmonary hygiene to q4h - supplemental oxygen as needed to keep saturations above 92 - CPAP home settings at night at this time will stay on V60 and potentially transition to home CPAP machine when staying on room air during the day - vitals q4 Assessment & Plan (05/26/2023 6:19 PM INSPECTOR PENETRANT): Assessment: Donna is a 22 year old female that presents with worsening respiratory distress requiring increase in bleed in oxygen with her CPAP. She has history of aspiration pneumonia and recent chest xray findings suggestive of right lower lobe infiltrate. Plan: - Continue zosyn IV for coverage. - Pulm consulted, appreciated recs - increase pulmonary hygiene to q4h - supplemental oxygen as needed to keep saturations above 92 - CPAP home settings during the day and night at this time, to help with atelectasis (L lung) seen on repeat CXR - vitals q4 Assessment & Plan (05/25/2023 12:53 PM INSPECTOR PENETRANT): Assessment: Donna is a 22 year old female that presents with worsening respiratory distress requiring increase in bleed in oxygen with her CPAP. She has history of aspiration pneumonia and recent chest xray findings suggestive of right lower lobe infiltrate. Plan: - Switch abx to zosyn IV for coverage. - Pulm consulted. - continue with pulmonary hygiene q 6 hours. - O2 as needed. - CPAP as need and at night - vitals q4 Assessment & Plan (05/09/2017 5:35 PM INSPECTOR PENETRANT): Assessment: Improving. Back to baseline (off supplemental O2 during the day and on CPAP overnight). Plan: -2 day 7 of Clindamycin (for R aspiration pneumonia) Assessment & Plan (05/09/2017 5:01 PM INSPECTOR PENETRANT): Assessment: Improving. Back to baseline (off supplemental O2 during the day and on CPAP overnight). Plan: -05/09 day 7/7 of Clindamycin (for R aspiration pneumonia) Assessment & Plan (05/08/2017 3:25 PM INSPECTOR PENETRANT): Assessment: Improving. Back to baseline (off supplemental O2 during the day and on CPAP overnight). Plan: -05/08 day 6 of Clindamycin (for R aspiration pneumonia) Assessment & Plan (05/08/2017 1:49 PM INSPECTOR PENETRANT): Assessment: Improving. Back to baseline (off supplemental O2 during the day and on CPAP overnight). Plan: -05/08 day 6 of Clindamycin (for R aspiration pneumonia) Assessment & Plan (05/07/2017 4:44 PM INSPECTOR PENETRANT): Assessment: Improving. Back to baseline (off supplemental O2 during the day and on CPAP overnight). Plan: -05/07 day 5 of Clindamycin (for R aspiration pneumonia) Assessment & Plan (05/06/2017 11:18 PM INSPECTOR PENETRANT): Assessment: Improving with decreasing respiratory support requirement. Plan: -05/06 - Full Day 4 of Clindamycin (for R aspiration pneumonia) Assessment & Plan (05/06/2017 1:43 PM INSPECTOR PENETRANT): Assessment: Improving with decreasing respiratory support requirement. Plan: -05/05 - Day 4 of Clindamycin (for R aspiration pneumonia) Anemia 05/06/2017 08/12/2020 Assessment & Plan (05/23/2017 6:58 AM INSPECTOR PENETRANT): Assessment: Most likely secondary to acute illness, although decreased to low of 8.1 on 05/06. Most recent Hgb of 9.8 on 05/10, but improved to 11.5 on 05/17. No concerning s/sx today Plan: - Continue OCP - Minimize blood draws Assessment & Plan (05/22/2017 10:06 PM INSPECTOR PENETRANT): Assessment: Most likely secondary to acute illness, although decreased to low of 8.1 on 05/06. Most recent Hgb of 9.8 on 05/10, but improved to 11.5 on 05/17. Plan: - Continue OCP - Minimize blood draws Assessment & Plan (05/20/2017 2:12 PM INSPECTOR PENETRANT): Assessment: Most likely secondary to acute illness, although decreased to low of 8.1 on 05/06. Most recent Hgb of 9.8 on 05/10, but improved to 11.5 on 05/17. Plan: - Continue OCP - Minimize blood draws Assessment & Plan (05/19/2017 8:12 PM INSPECTOR PENETRANT): Assessment: Most likely secondary to acute illness, although decreased to low of 8.1 on 05/06. Most recent Hgb of 9.8 on 05/10, but improved to 11.5 on 05/17. Plan: - Continue OCP - Minimize blood draws Assessment & Plan (05/19/2017 1:04 AM INSPECTOR PENETRANT): Assessment: Most likely secondary to acute illness, although decreased to low of 8.1 on 05/06. Most recent Hgb of 9.8 on 05/10, but improved to 11.5 on 05/17. Plan: - Continue OCP - Minimize blood draws Assessment & Plan (05/17/2017 10:57 PM INSPECTOR PENETRANT): Assessment: Most likely secondary to acute illness, although decreased to low of 8.1 on 05/06. Most recent Hgb of 9.8 on 05/10, but improved to 11.5 on 05/17. Plan: - Continue OCP - Minimize blood draws Assessment & Plan (05/16/2017 9:51 PM INSPECTOR PENETRANT): Assessment: Most likely secondary to acute illness, although decreased to low of 8.1 on 05/06. Most recent Hgb of 9.8 on 05/10. Plan: - continue OCP - minimize blood draws Assessment & Plan (05/16/2017 5:37 AM INSPECTOR PENETRANT): Assessment: Most likely secondary to acute illness, although decreased to low of 8.1 on 05/06. Most recent Hgb of 9.8 on 05/10. Plan: - continue OCP - minimize blood draws Assessment & Plan (05/15/2017 4:48 AM INSPECTOR PENETRANT): Assessment: Most likely secondary to acute illness, although decreased to low of 8.1 on 05/06. Most recent Hgb of 9.8 on 05/10. Plan: - continue OCP - minimize blood draws Assessment & Plan (05/14/2017 3:10 AM INSPECTOR PENETRANT): Assessment: Most likely secondary to acute illness, although decreased to low of 8.1 on 05/06. Most recent Hgb of 9.8 on 05/10. Plan: - continue OCP - minimize blood draws Assessment & Plan (05/12/2017 1:35 PM INSPECTOR PENETRANT): Assessment: Most likely secondary to acute illness, although decreased to low of 8.1 on 05/06. Most recent Hgb of 9.8 on 05/10. Plan: - continue OCP - minimize blood draws Assessment & Plan (05/12/2017 12:56 PM INSPECTOR PENETRANT): Assessment: Most likely secondary to acute illness, although decreased to low of 8.1 on 05/06. Most recent Hgb of 9.8 on 05/10. Plan: - continue OCP - minimize blood draws Assessment & Plan (05/11/2017 11:52 AM INSPECTOR PENETRANT): Assessment: Most likely secondary to acute illness. Not currently symptomatic. Improved today (Hgb 9.8). Plan: - continue OCP - minimize blood draws Assessment & Plan (05/10/2017 1:00 PM INSPECTOR PENETRANT): Assessment: Downtrending H/H (down to 8.1/23.7 on 05/06). Most likely secondary to acute illness. Not currently symptomatic. Plan: - continue OCP - minimize blood draws - draw H&H again before discharge Assessment & Plan (05/10/2017 12:10 PM INSPECTOR PENETRANT): Assessment: Downtrending H/H (down to 8.1/23.7 on 05/06). Most likely secondary to acute illness. Not currently symptomatic. Plan: - continue OCP - minimize blood draws - draw H&H again before discharge Assessment & Plan (05/09/2017 5:36 PM INSPECTOR PENETRANT): Assessment: Downtrending H/H (down to 8.1/23.7 on 05/06). Most likely secondary to acute illness. Not currently symptomatic. Plan: - continue OCP - minimize blood draws - draw H&H again before discharge Assessment & Plan (05/08/2017 3:25 PM INSPECTOR PENETRANT): Assessment: Downtrending H/H (down to 8.1/23.7 on 05/06). Possible etiology includes blood loss (menstrual bleeding and blood draws for labs), acute illness. Not currently symptomatic. Plan: - continue OCP - OBGYN does not recommend adding Patch as increased risk for clots as Donna has been immobile for days - minimize blood draws - draw H&H again before discharge Assessment & Plan (05/08/2017 1:49 PM INSPECTOR PENETRANT): Assessment: Downtrending H/H (down to 8.1/23.7 yesterday). Possible etiology includes blood loss (menstrual bleeding and blood draws for labs), acute illness. Not currently symptomatic. Plan: - continue OCP - OBGYN does not recommend adding Patch as increased risk for clots as Donna has been immobile for days - minimize blood draws - draw H&H again before discharge Assessment & Plan (05/07/2017 4:48 PM INSPECTOR PENETRANT): Assessment: Downtrending H/H (down to 8.1/23.7 yesterday). Possible etiology includes blood loss (menstrual bleeding and blood draws for labs), acute illness. Not currently symptomatic. Plan: - continue OCP - minimize blood draws - draw H&H again before discharge Assessment & Plan (05/07/2017 3:46 PM INSPECTOR PENETRANT): Assessment: Downtrending H/H (down to 8.1/23.7 today). Possible etiology includes blood less (menstrual bleeding and blood draws for labs), acute illness and ampicillin side effect. Not currently symptomatic. Plan: - continue OCP - minimize blood draws - draw H&H again before discharge Assessment & Plan (05/06/2017 11:15 PM INSPECTOR PENETRANT): Assessment: Downtrending H/H (down to 8.1/23.7 today). Possible etiology includes blood less (menstrual bleeding and blood draws for labs), acute illness and ampicillin side effect. Not currently symptomatic. Plan: - continue to monitory H/H - transfusion not needed at this time - continue OCP - minimize blood draws Assessment & Plan (05/06/2017 1:49 PM INSPECTOR PENETRANT): Assessment: H/H have been drifting lower (down to 8.1/23.7 today). Attempting to limit blood draws. OCP restarted as having menstrual bleeding currently. 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 She has had increased seizure activity during this admission, with clusters of seizures where her arms spasm. We have discussed the risks of respiratory depression associated with antiepileptics with Donna's parents, especially given her DNI status. 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 She has had increased seizure activity during this admission, with clusters of seizures where her arms spasm. We have discussed the risks of respiratory depression associated with antiepileptics with Donna's parents, especially given her DNI status. 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 She has had increased seizure activity during this admission, with clusters of seizures where her arms spasm. We have discussed the risks of respiratory depression associated with antiepileptics with Donna's parents, especially given her DNI status. Plan: - Consulting Neurology, ongoing recommendations. 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 She has had increased seizure activity during this admission, with clusters of seizures where her arms spasm. We have discussed the risks of respiratory depression associated with antiepileptics with Donna's parents, especially given her DNI status. Plan: - Consulting Neurology, ongoing recommendations. 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 She has had increased seizure activity during this admission, with clusters of seizures where her arms spasm. We have discussed the risks of respiratory depression associated with antiepileptics with Donna's parents, especially given her DNI status. Plan: - Consulting Neurology, ongoing recommendations. 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 She has had increased seizure activity during this admission, with clusters of seizures where her arms spasm. We have discussed the risks of respiratory depression associated with antiepileptics with Donna's parents, especially given her DNI status. Plan: - Consulting Neurology, ongoing recommendations. 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 She has had increased seizure activity during this admission, with clusters of seizures where her arms spasm. We have discussed the risks of respiratory depression associated with antiepileptics with Donna's parents, especially given her DNI status. Plan: - Consulting Neurology, ongoing recommendations. 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 She has had increased seizure activity during this admission, with clusters of seizures where her arms spasm. We have discussed the risks of respiratory depression associated with antiepileptics with Donna's parents, especially given her DNI status. Plan: - Consulting Neurology, ongoing recommendations. 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 She has had increased seizure activity during this admission, with clusters of seizures where her arms spasm. We have discussed the risks of respiratory depression associated with antiepileptics with Donna's parents, especially given her DNI status. Plan: - Consulting Neurology, ongoing recommendations. 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 She has had increased seizure activity during this admission, with clusters of seizures where her arms spasm. We have discussed the risks of respiratory depression associated with antiepileptics with Donna's parents, especially given her DNI status. Plan: - Consulting Neurology. We appreciate their recommendations. - If she has 3 or more seizures in a 1-hr period, would consider giving another load, please give 40mg/kg of Keppra - Klonopin bridge 0.5 mg BID Assessment & Plan (10/12/2022 1:39 PM CDT): Assessment: Donna has been having increased seizure frequency above her baseline. There have also been new spells concerning for seizures that are not her typical semiology and possibly provoked by physical stimulation. Neurology consulted and she was placed on cEEG for characterization of the spells. EEG was notable for multiple breakthrough seizures. Plan: -Neurology Consulted, holding Klonopin bridge at this time -Seizure Precautions -Continue home AEDs -Will complete 3 day Klonopin bridge per neurology. Neurology recommending discontinuation of lacosamide and increasing Keppra dose. However, after discussion with family, holding off on this change at this time. Day 2/3 Assessment & Plan (10/11/2022 12:26 PM CDT): Assessment: Donna has been having increased seizure frequency above her baseline. There have also been new spells concerning for seizures that are not her typical semiology and possibly provoked by physical stimulation. Neurology consulted and she was placed on cEEG for characterization of the spells. EEG was notable for multiple breakthrough seizures. Plan: -Neurology Consulted, holding Klonopin bridge at this time -Seizure Precautions -Continue home AEDs -Will complete 3 day Klonopin bridge per neurology. Neurology recommending discontinuation of lacosamide and increasing Keppra dose. However, after discussion with family, holding off on this change at this time. Assessment & Plan (10/10/2022 9:32 AM CDT): Assessment: Donna has been having increased seizure frequency above her baseline. There have also been new spells concerning for seizures that are not her typical semiology and possibly provoked by physical stimulation. Neurology consulted and she was placed on cEEG for characterization of the spells. Plan: -Neurology Consulted, holding Klonopin bridge at this time -Seizure Precautions -Continue home AEDs - Neurology to review cEEG and discuss changes in regimen today; plan to follow up with final recommendations Assessment & Plan (08/17/2020 3:59 PM CDT): Assessment: 19 yo F w/pmh CP, spastic [...] rest of acute management to ER team Assessment & Plan (03/28/2019 9:51 AM INSPECTOR PENETRANT): Donna Herring is a 18 year old female with known seizure disorder. Her typical seizures at generalized tonic clonic, gaze deviates lateral that typically self resolve after 30s-1m. No seizure like activity noted during this hospital stay thus far. Plan Continue home Keppra Seizure plan: >5m seizure, give rectal 5mg diastat. If clusters of short seizures, give 0.5mg klonopin Assessment & Plan (03/27/2019 10:53 PM INSPECTOR PENETRANT): Donna Herring is a 18 year old female with known seizure disorder. Her typical seizures at generalized tonic clonic, gaze deviates lateral that typically self resolve after 30s-1m. Plan Continue home Keppra Seizure plan: >5m seizure, give rectal 5mg diastat. If clusters of short seizures, give 0.5mg klonopin Assessment & Plan (05/23/2017 6:58 AM INSPECTOR PENETRANT): Assessment: Seizures well controlled currently. Plan: - continue Baclofen - If seizures worsen, > 2 seizures per day and seizures > 60 seconds, May consider clonazepam 0.5 TID PRN - continue Onfi to 20 mg at night Assessment & Plan (05/22/2017 10:06 PM INSPECTOR PENETRANT): Assessment: Seizures well controlled currently. Plan: - continue Baclofen - If seizures worsen, > 2 seizures per day and seizures > 60 seconds, May consider clonazepam 0.5 TID PRN - continue Onfi to 20 mg at night Assessment & Plan (05/20/2017 2:12 PM INSPECTOR PENETRANT): Assessment: Seizures well controlled currently. Plan: - continue Baclofen - If seizures worsen, > 2 seizures per day and seizures > 60 seconds, May consider clonazepam 0.5 TID PRN - continue Onfi to 20 mg at night Assessment & Plan (05/19/2017 8:12 PM INSPECTOR PENETRANT): Assessment: Seizures well controlled currently. Plan: - continue Baclofen - If seizures worsen, > 2 seizures per day and seizures > 60 seconds, May consider clonazepam 0.5 TID PRN - continue Onfi to 20 mg at night Assessment & Plan (05/19/2017 1:04 AM INSPECTOR PENETRANT): Assessment: Seizures well controlled currently. Plan: - continue Baclofen - If seizures worsen, > 2 seizures per day and seizures > 60 seconds, May consider clonazepam 0.5 TID PRN - continue Onfi to 20 mg at night Assessment & Plan (05/16/2017 9:52 PM INSPECTOR PENETRANT): Assessment: Seizures well controlled currently. Plan: - continue Baclofen - If seizures worsen, > 2 seizures per day and seizures > 60 seconds, May consider clonazepam 0.5 TID PRN - continue Onfi to 20 mg at night Assessment & Plan (05/16/2017 5:36 AM INSPECTOR PENETRANT): Assessment: Seizures well controlled currently. Plan: - continue Baclofen - If seizures worsen, > 2 seizures per day and seizures > 60 seconds, May consider clonazepam 0.5 TID PRN - continue Onfi to 20 mg at night Assessment & Plan (05/15/2017 4:48 AM INSPECTOR PENETRANT): Assessment: Seizures well controlled currently. Plan: - continue Baclofen - If seizures worsen, > 2 seizures per day and seizures > 60 seconds, May consider clonazepam 0.5 TID PRN - continue Onfi to 20 mg at night Assessment & Plan (05/14/2017 3:09 AM INSPECTOR PENETRANT): Assessment: Seizures well controlled currently. Plan: - continue Baclofen - If seizures worsen, > 2 seizures per day and seizures > 60 seconds, May consider clonazepam 0.5 TID PRN - continue Onfi to 20 mg at night Assessment & Plan (05/12/2017 1:35 PM INSPECTOR PENETRANT): Assessment: Seizures well controlled currently. Plan: - continue Baclofen - If seizures worsen, > 2 seizures per day and seizures > 60 seconds, May consider clonazepam 0.5 TID PRN - continue Onfi to 20 mg at night Assessment & Plan (05/11/2017 11:50 AM INSPECTOR PENETRANT): Assessment: Seizures well controlled currently. 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 Over hospitalization she developed NILSON due to use of vancomycin. Her home Topamax (200 mg BID) and Keppra (750mg BID) were stopped and was bridged on Clonazepam. Plan: Continue Keppra 750 BID. Do not restart topamax (since per mother it was not helping her much). Increase Onfi 20 mg nightly. Call neurology if any questions. 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 Over hospitalization she developed NILSON due to use of vancomycin. Her home Topamax (200 mg BID) and Keppra (750mg BID) were stopped and was bridged on Clonazepam. Plan: Increase Keppra 750 BID. Do not restart topamax (since per mother it was not helping her much). Will start Onfi 10 mg nightly. Call neurology if any questions. Hypernatremia 05/06/2017 05/16/2017 Assessment & Plan (05/16/2017 9:51 PM INSPECTOR PENETRANT): Assessment: Hung Na level wnl Plan: - continue free water in her flushes - continue RFP daily Assessment & Plan (05/16/2017 5:37 AM INSPECTOR PENETRANT): Assessment: Hung Na level wnl Plan: - continue free water in her flushes - continue RFP daily Assessment & Plan (05/15/2017 4:48 AM INSPECTOR PENETRANT): Assessment: Hung Na level wnl Plan: - continue free water in her flushes - continue RFP daily Assessment & Plan (05/14/2017 3:10 AM INSPECTOR PENETRANT): Assessment: Hung Na level wnl Plan: - continue 250 free water in her flushes - continue RFP daily Assessment & Plan (05/12/2017 1:36 PM INSPECTOR PENETRANT): Assessment: Hung Na level has normalized today. Plan: - continue 250 free water in her flushes - continue RFP daily Assessment & Plan (05/11/2017 1:00 PM INSPECTOR PENETRANT): Assessment: Marianos Na level is still elevated (high 140s to low 150s recently). It is now trending down after increasing free water flushes. Plan: - continue 250 free water in her flushes - continue RFP daily Assessment & Plan (05/11/2017 12:56 PM INSPECTOR PENETRANT): Assessment: Hung Na level is still elevated (high 140s to low 150s recently). It is now trending down after increasing free water flushes. Plan: - continue 250 free water in her flushes - continue RFP daily Assessment & Plan (05/11/2017 11:53 AM INSPECTOR PENETRANT): Assessment: Hung Na level is still elevated (high 140s to low 150s recently). Plan: - increasing free water in her flushes (to 250 mL yesterday; will discuss further increase with Nephrology) - continue RFP daily Assessment & Plan (05/10/2017 12:55 PM INSPECTOR PENETRANT): Assessment: Hung Na level is still elevated. Plan: - increasing free water in her flushes to 250 mL - continue RFP daily Assessment & Plan (05/10/2017 12:12 PM INSPECTOR PENETRANT): Assessment: Hung Na level is still elevated. Plan: - increasing free water in her flushes to 250 mL - continue RFP daily Assessment & Plan (05/09/2017 5:36 PM INSPECTOR PENETRANT): Assessment: Hnug Na level is still elevated. Nephrology is closely following NILSON and electrolyte imbalance as well; recommendations appreciated. Per nephrology likely 2/2 fluid resuscitation. Plan: - increasing free water in her flushes to 200 mL - continue RFP daily Assessment & Plan (05/09/2017 5:05 PM INSPECTOR PENETRANT): Assessment: Hung Na level is still elevated. Nephrology is closely following NILSON and electrolyte imbalance as well; recommendations appreciated. Per nephrology likely 2/2 fluid resuscitation. Plan: - increasing free water in her Flushes to 200 mL - continue RFP daily Assessment & Plan (05/08/2017 3:26 PM INSPECTOR PENETRANT): Assessment: Marianos Na level is still elevated. Nephrology is closely following NILSON and electrolyte imbalance as well; recommendations appreciated. Per nephrology likely 2/2 fluid resuscitation. Plan: - increasing free water in her fluids (total of 150 mL/day) - continue RFP daily Assessment & Plan (05/08/2017 1:50 PM INSPECTOR PENETRANT): Assessment: Marianos Na level is still elevated. Nephrology is closely following NILSON and electrolyte imbalance as well; recommendations appreciated. Per nephrology likely 2/2 fluid resuscitation. Plan: - increasing free water in her fluids (total of 150 mL/day) - continue RFP daily Assessment & Plan (05/07/2017 4:49 PM INSPECTOR PENETRANT): Assessment: Marianos Na level has continued to be increased (151 this morning). Nephrology is closely following NILSON and electrolyte imbalance as well; recommendations appreciated. Per nephrology likely 2/2 fluid resuscitation. Plan: - increasing free water in her fluids and not just Pedialyte (per nephrology rec) Assessment & Plan (05/06/2017 11:36 PM INSPECTOR PENETRANT): Assessment: Marianos Na level has continued to increased to 152 this morning. Nephrology is closely following NILSON and electrolyte imbalance as well; recommendations appreciated. Per nephrology likely 2/2 fluid resuscitation. Plan: - recommend increasing free water in her fluids and not just Pedialyte (per nephrology rec) NILSON (acute kidney injury) akila monson 2/2 vancomycin, enterococcus avium urosepsis 04/27/2017 05/16/2017 Assessment & Plan (05/16/2017 9:55 PM INSPECTOR PENETRANT): Assessment: Donna completed treatment for urosepsis. Temp instability returned and repeat UA abnormal and culture growing gram negative bacilli (see UTI problem). Urology, and ID are following and their input is appreciated. Plan: - continue to follow RFP daily - VCUG after abx - Straight cath q6hr to avoid urinary stasis - feeds per recommendation of Nutrition (including protein supplement) -600 mL Jevity + 300 mL water + 4 scoops (28 grams) of beneprotein. -Provide 300 mL of formula mixture TID at 0700, 1100, 1600 (Please add an extra 50 mL of free water with each feed) -Water flushes, 250 mL after each bolus plus additional flush at 2000 - Holding home probiotics b/c on VSL and Culturelle - continue calcium carbonate QID - continue home meds of Flonase - continue Prilosec - baseline RA during day, home CPAP 7, 21% at night Assessment & Plan (05/16/2017 5:37 AM INSPECTOR PENETRANT): Assessment: Donna completed treatment for urosepsis. Temp instability returned and repeat UA abnormal and culture growing gram negative bacilli (see UTI problem). Urology, and ID are following and their input is appreciated. Plan: - continue to follow RFP daily - VCUG after abx - Straight cath q6hr to avoid urinary stasis - feeds per recommendation of Nutrition (including protein supplement) -600 mL Jevity + 300 mL water + 4 scoops (28 grams) of beneprotein. -Provide 300 mL of formula mixture TID at 0700, 1100, 1600 (Please add an extra 50 mL of free water with each feed) -Water flushes, 250 mL after each bolus plus additional flush at 2000 - Holding home probiotics b/c on VSL and Culturelle - continue calcium carbonate QID - continue home meds of Flonase - continue Prilosec - baseline RA during day, home CPAP 7, 21% at night Assessment & Plan (05/15/2017 4:48 AM INSPECTOR PENETRANT): Assessment: Donna completed treatment for urosepsis. Temp instability returned and repeat UA abnormal and culture growing gram negative bacilli (see UTI problem). Urology, and ID are following and their input is appreciated. Plan: - continue to follow RFP daily - VCUG after abx - Straight cath q6hr to avoid urinary stasis - feeds per recommendation of Nutrition (including protein supplement) -600 mL Jevity + 300 mL water + 4 scoops (28 grams) of beneprotein. -Provide 300 mL of formula mixture TID at 0700, 1100, 1600 (Please add an extra 50 mL of free water with each feed) -Water flushes, 250 mL after each bolus plus additional flush at 2000 - Holding home probiotics b/c on VSL and Culturelle - continue calcium carbonate QID - continue home meds of Flonase - continue Prilosec - baseline RA during day, home CPAP 7, 21% at night Assessment & Plan (05/14/2017 3:10 AM INSPECTOR PENETRANT): Assessment: Donna completed treatment for urosepsis. Temp instability returned and repeat UA abnormal and culture growing gram negative bacilli (see UTI problem). Urology, and ID are following and their input is appreciated. Plan: - continue to follow RFP daily - VCUG after abx - Straight cath q6hr to avoid urinary stasis - feeds per recommendation of Nutrition (including protein supplement) -600 mL Jevity + 300 mL water + 4 scoops (28 grams) of beneprotein. -Provide 300 mL of formula mixture TID at 0700, 1100, 1600 (Please add an extra 50 mL of free water with each feed) -Water flushes, 250 mL after each bolus plus additional flush at 2000 - Holding home probiotics b/c on VSL and Culturelle - continue calcium carbonate QID - continue home meds of Flonase - continue Prilosec - baseline RA during day, home CPAP 7, 21% at night Assessment & Plan (05/12/2017 1:35 PM INSPECTOR PENETRANT): Assessment: Donna completed treatment for urosepsis. Temp instability returned and repeat UA abnormal and culture growing gram negative bacilli (see UTI problem). Urology, and ID are following and their input is appreciated. Plan: - continue to follow RFP daily - VCUG after 24hrs on sensitive antibiotics (planned for tomorrow) - Straight cath q6hr to avoid urinary stasis - feeds per recommendation of Nutrition (including protein supplement) -600 mL Jevity + 300 mL water + 4 scoops (28 grams) of beneprotein. -Provide 300 mL of formula mixture TID at 0700, 1100, 1600 (Please add an extra 50 mL of free water with each feed) -Water flushes, 250 mL after each bolus plus additional flush at 2000 - Holding home probiotics b/c on VSL and Culturelle - continue calcium carbonate QID - continue home meds of Flonase - continue Prilosec - baseline RA during day, home CPAP 7, 21% at night Assessment & Plan (05/12/2017 12:58 PM INSPECTOR PENETRANT): Assessment: Donna is admitted with NILSON after urosepsis secondary to Enterococcus avium (finished course of ampicillin). Temp instability returned and repeat UA abnormal and culture growing gram negative bacilli (see UTI problem). NILSON improving. Urology, and ID are following and their input is appreciated. Plan: - continue to follow RFP daily - VCUG after 24hrs on sensitive antibiotics (planned for tomorrow) - Straight cath q6hr to avoid urinary stasis - feeds per recommendation of Nutrition (including protein supplement) -600 mL Jevity + 300 mL water + 4 scoops (28 grams) of beneprotein. -Provide 300 mL of formula mixture TID at 0700, 1100, 1600 (Please add an extra 50 mL of free water with each feed) -Water flushes, 250 mL after each bolus plus additional flush at 2000 - Holding home probiotics b/c on VSL and Culturelle - continue calcium carbonate QID - continue home meds of Flonase - continue Prilosec - baseline RA during day, home CPAP 7, 21% at night Assessment & Plan (05/11/2017 12:50 PM INSPECTOR PENETRANT): Assessment: Donna is admitted with NILSON after urosepsis secondary to Enterococcus avium (finished course of ampicillin). Temp instability returned and repeat UA abnormal and culture growing gram negative bacilli (see UTI problem). NILSON improving. Urology, and ID are following and their input is appreciated. Plan: - continue to follow RFP daily - VCUG will be needed once on confirmed sensitive antibiotics for at least 24 hours - Straight cath q6hr to avoid urinary stasis - feeds per recommendation of Nutrition (including protein supplement) -600 mL Jevity + 300 mL water + 4 scoops (28 grams) of beneprotein. -Provide 300 mL of formula mixture TID at 0700, 1100, 1600 (Please add an extra 50 mL of free water with each feed) -Water flushes, 250 mL after each bolus plus additional flush at 2000 - Holding home probiotics b/c on VSL - continue calcium carbonate QID b/c on admit had hypocalcemia - continue Prilosec - baseline RA during day, home CPAP 7, 21% at night Assessment & Plan (05/11/2017 11:50 AM INSPECTOR PENETRANT): Assessment: Donna is admitted with NILSON after urosepsis secondary to Enterococcus avium (finished course of ampicillin). Temp instability returned and repeat UA abnormal and culture growing gram negative bacilli (see UTI problem). NILSON improving. Urology, and ID are following and their input is appreciated. Plan: - continue to follow RFP daily - VCUG will be needed but needs clean urine culture first; will discuss timing with - Straight cath q6hr to avoid urinary stasis - feeds per recommendation of Nutrition (including protein supplement) -600 mL Jevity + 300 mL water + 4 scoops (28 grams) of beneprotein. -Provide 300 mL of formula mixture TID at 0700, 1100, 1600 (Please add an extra 50 mL of free water with each feed) -Water flushes, 250 mL after each bolus plus additional flush at 2000 - Holding home probiotics b/c on VSL - continue calcium carbonate QID b/c on admit had hypocalcemia - continue Prilosec - baseline RA during day, home CPAP 7, 21% at night Assessment & Plan (05/10/2017 12:58 PM INSPECTOR PENETRANT): Assessment: Donna is admitted with NILSON after urosepsis secondary to Enterococcus avium. Finished 10 day course of ampicillin. Temp instability returned and repeat UA abnormal and culture growing gram negative bacilli. NILSON improving. Urology, and ID are following and their input is appreciated. Plan: - urology consulted - ID consulted - Cefepime until culture results. - follow up blood cultures - continue to follow RFP daily - VCUG will be needed but needs clean urine culture first - Straight cath q6hr to avoid urinary stasis - feeds per recommendation of Nutrition (including protein supplement) -600 mL Jevity + 300 mL water + 4 scoops (28 grams) of beneprotein. -Provide 300 mL of formula mixture TID at 0700, 1100, 1600 (Please add an extra 50 mL of free water with each feed) -Water flushes, 250 mL after each bolus plus additional flush at 2000 - Holding home probiotics b/c on VSL - continue calcium carbonate QID b/c on admit had hypocalcemia - continue Prilosec - baseline RA during day, home CPAP 7, 21% at night - continue Baclofen - If seizures worsen, > 2 seizures per day and seizures > 60 seconds, May consider clonazepam 0.5 TID PRN - continue Onfi to 20 mg at night Assessment & Plan (05/10/2017 12:09 PM INSPECTOR PENETRANT): Assessment: Donna is admitted with NILSON after urosepsis secondary to Enterococcus avium. Finished 10 day course of ampicillin. Temp instability returned and repeat UA abnormal and culture growing NFGNR. NILSON improving. Urology, and ID are following and their input is appreciated. Plan: - urology consulted - continue to follow RFP daily - VCUG will be needed but needs clean urine culture first - Bladder scans Q6 hours. Straight catheterization if PVR is greater than 500 mL or no urine output in 6 hours to reduce risk of infection. - feeds per recommendation of Nutrition (including protein supplement) -600 mL Jevity + 300 mL water + 4 scoops (28 grams) of beneprotein. -Provide 300 mL of formula mixture TID at 0700, 1100, 1600 (Please add an extra 50 mL of free water with each feed) -Water flushes, 250 mL after each bolus plus additional flush at 2000 - Holding home probiotics b/c on VSL - continue calcium carbonate QID b/c on admit had hypocalcemia - continue Prilosec - baseline RA during day, home CPAP 7, 21% at night - continue Baclofen - If seizures worsen, > 2 seizures per day and seizures > 60 seconds, May consider clonazepam 0.5 TID PRN - continue Onfi to 20 mg at night Assessment & Plan (05/09/2017 5:35 PM INSPECTOR PENETRANT): Assessment: Donna is admitted with NILSON after urosepsis secondary to Enterococcus avium. Patient finished 10 day course of ampicillin. Repeat UA shows nitrite and LE esterase positive, so will treat with cefepime per ID. Urine culture pending. NILSON improving. Nephrology, Urology, and ID are following and their input is appreciated. Plan: - start cefepime BID - urology consulted - continue to follow RFP daily - follow up urine culture and blood culture - VCUG will be needed - Bladder scans Q6 hours. Straight catheterization if PVR is greater than 500 mL or no urine output in 6 hours to reduce risk of infection. - feeds per recommendation of Nutrition (including protein supplement) -600 mL Jevity + 300 mL water + 4 scoops (28 grams) of beneprotein. -Provide 300 mL of formula mixture TID at 0700, 1100, 1600 (Please add an extra 50 mL of free water with each feed) -Water flushes, 200 mL after each bolus plus additional flush at 2000 volume - Holding home probiotics b/c on VSL - continue calcium carbonate QID b/c on admit had hypocalcemia - continue Prilosec - baseline RA during day, home CPAP 7, 21% at night - continue restart baclofen at home dose now that NILSON is resolved. - If seizures worsen, > 2 seizures per day and seizures > 60 seconds, May consider clonazepam 0.5 TID PRN - per neuro increase Onfi to 20 mg at night Assessment & Plan (05/09/2017 5:02 PM INSPECTOR PENETRANT): Assessment: Donna is admitted with NILSON after urosepsis secondary to Enterococcus avium. Patient finished 10 day course of ampicillin. Repeat UA shows nitrite and LE esterase positive, so will treat with cefepime per ID. Urine culture pending. NILSON improving. Nephrology, urology, and ID are following and their input is appreciated. Plan: - start cefepime BID - urology consulted - continue to follow RFP daily - follow up urine culture and blood culture - VCUG will be needed - Bladder scans Q6 hours. Straight catheterization if PVR is greater than 500 mL or no urine output in 6 hours to reduce risk of infection. - feeds per recommendation of Nutrition (including protein supplement) -600 mL Jevity + 300 mL water + 4 scoops (28 grams) of beneprotein. -Provide 300 mL of formula mixture TID at 0700, 1100, 1600 (Please add an extra 50 mL of free water with each feed) -Water flushes, 200 mL after each bolus plus additional flush at 2000 volume - Holding home probiotics b/c on VSL - continue calcium carbonate QID b/c on admit had hypocalcemia - continue Prilosec - baseline RA during day, home CPAP 7, 21% at night - continue restart baclofen at home dose now that NILSON is resolved. - If seizures worsen, > 2 seizures per day and seizures > 60 seconds, May consider clonazepam 0.5 TID PRN - per neuro increase Onfi to 20 mg at night Assessment & Plan (05/08/2017 3:24 PM INSPECTOR PENETRANT): Assessment: Donna is admitted with NILSON after urosepsis secondary to Enterococcus avium. Responding well to ampicillin. NILSON improving. Nephrology is following and their input is appreciated. Plan: - 05/08 Day (started 04/29) - Ampicillin - continue to follow RFP daily - VCUG will be needed - Bladder scans Q6 hours. Straight catheterization if PVR is greater than 500 mL or no urine output in 6 hours to reduce risk of infection. - feeds per recommendation of Nutrition (including protein supplement) -600 mL Jevity + 300 mL water + 4 scoops (28 grams) of beneprotein. -Provide 300 mL of formula mixture TID at 0700, 1100, 1600 (Please add an extra 50 mL of free water with each feed) -Water flushes, 150 mL after each bolus plus additional flush at 2000 volume - Holding home probiotics b/c on VSL - continue calcium carbonate QID b/c on admit had hypocalcemia - continue Prilosec - baseline RA during day, home CPAP 7, 21% at night - continue half of home baclofen - If seizures worsen, > 2 seizures per day and seizures > 60 seconds, May consider clonazepam 0.5 TID PRN - per neuro increase Onfi to 20 mg at night Assessment & Plan (05/08/2017 1:48 PM INSPECTOR PENETRANT): Assessment: Donna is admitted with NILSON after urosepsis secondary to Enterococcus avium. Responding well to ampicillin. NILSON improving. Nephrology is following and their input is appreciated. Plan: - (started 04/29) - Ampicillin - continue to follow RFP daily - VCUG will be needed - Bladder scans Q6 hours. Straight catheterization if PVR is greater than 500 mL or no urine output in 6 hours to reduce risk of infection. - feeds per recommendation of Nutrition (including protein supplement) -600 mL Jevity + 300 mL water + 4 scoops (28 grams) of beneprotein. -Provide 300 mL of formula mixture TID at 0700, 1100, 1600 (Please add an extra 50 mL of free water with each feed) -Water flushes, 150 mL after each bolus plus additional flush at 2000 volume - Holding home probiotics b/c on VSL - continue calcium carbonate QID b/c on admit had hypocalcemia - continue Prilosec - baseline RA during day, home CPAP 7, 21% at night - continue half of home baclofen - If seizures worsen, > 2 seizures per day and seizures > 60 seconds, May consider clonazepam 0.5 TID PRN - per neuro increase Onfi to 20 mg at night Assessment & Plan (05/07/2017 4:47 PM INSPECTOR PENETRANT): Assessment: Donna is admitted with NILSON after urosepsis secondary to Enterococcus avium. Responding well to ampicillin. NILSON improving. Nephrology is following and their input is appreciated. Plan: - (started 04/29) - Ampicillin - continue to follow RFP - VCUG will be needed - Bladder scans Q6 hours. Straight catheterization if PVR is greater than 500 mL or no urine output in 8+ hours per urology to reduce risk of infection. - will home feeds today (minus supplement) - Jevity 1.0 rosendo 300 mL bolus (160 jevity + 140 water) w/150 mL water flush TID - Holding home probiotics b/c on VSL - continue calcium carbonate QID b/c on admit had hypocalcemia - continue Prilosec - baseline RA during day, home CPAP 7, 21% at night - continue half of home baclofen - If seizures worsen, > 2 seizures per day and seizures > 60 seconds, May consider clonazepam 0.5 TID PRN Assessment & Plan (05/07/2017 3:45 PM INSPECTOR PENETRANT): Assessment: Donna is admitted with NILSON after urosepsis secondary to Enterococcus avium. Responding well to ampicillin. NILSON improving. Nephrology is following and their input is appreciated. Plan: - (started 04/29) - Ampicillin - continue to follow RFP - VCUG when negative UCx, else f/u for VCUG. - Bladder scans Q6 hours. Straight catheterization if PVR is greater than 500 mL or no urine output in 8+ hours per urology to reduce risk of infection. -05/07 - day 5/7 of Clindamycin (for R aspiration pneumonia) - will home feeds today (minus supplement) - Jevity 1.0 rosendo 300 mL bolus (160 jevity + 140 water) w/150 mL water flush TID - Supplement K with 20 mEq of KCl - Holding home probiotics b/c on VSL - continue calcium carbonate QID b/c on admit had hypocalcemia - continue Prilosec - attempt to wean from continuous CPAP today (baseline is RA during day, home CPAP 7, 21% NOC. Currently requiring CPAP machine throughout the day for comfort and respiratory support) - continue half of home baclofen - If seizures worsen, > 2 seizures per day and seizures > 60 seconds, May consider clonazepam 0.5 TID PRN Assessment & Plan (05/06/2017 11:22 PM INSPECTOR PENETRANT): Assessment: Donna is admitted with NILSON after urosepsis secondary to Enterococcus avium. Responding well to ampicillin. NILSON improving. Nephrology is following and their input is appreciated. Plan: - 05/06 Day 8 of 7-10 (started 04/29) - Ampicillin - continue to follow RFP, H/H - VCUG when negative UCx, else f/u for VCUG. - Bladder scans Q4 hours. Straight catheterization if PVR is greater than 200 ml or no urine output in 8+ hours per urology to reduce risk of infection. -05/06 - full day 5 of Clindamycin (for R aspiration pneumonia) - will attempt 50/50 Pedialyte/Jevity feeds today - 80 mL Jevity 1.0 + 70 mL of water w/75 mL water flush - 225 mL Pedialyte - 27 mL/hr of D5 1/2 NS w/KCl for total of 1500 mL fluid/day -Holding home probiotics b/c on VSL - continue calcium carbonate QID b/c on admit had hypocalcemia - get 25 D lab per nephrology recs - continue Prilosec - attempt to wean from continuous CPAP today (baseline is RA during day, home CPAP 7, 21% NOC. Currently requiring CPAP machine throughout the day for comfort and respiratory support) - continue half of home baclofen - increase dosing of Keppra to 750 mg BID per Neurology - start Onfi 10 mg QHS per neurology - If seizures worsen, > 2 seizures per day and seizures > 60 seconds, May consider clonazepam 0.5 TID PRN - discuss Keppra dosing and Topamax prescription with Neurology Assessment & Plan (05/06/2017 1:48 PM INSPECTOR PENETRANT): Assessment: Donna is admitted with NILSON after urosepsis secondary to Enterococcus avium. Responding well to ampicillin. NILSON improving. Nephrology is following and their input is appreciated. Plan: - 05/05 Day 7 of 7-10 (started 04/29) - Ampicillin - continue to follow RFP, H/H - VCUG when negative UCx, else f/u for VCUG. - Bladder scans Q4 hours. Straight catheterization if PVR is greater than 200 ml or no urine output in 8+ hours per urology to reduce risk of infection. -05/05 - Day 4 of Clindamycin (for R aspiration pneumonia) - will attempt 50/50 Pedialyte/Jevity feeds today -holding home GT feeds: (Jevity 1.0 160 ml + water 140ml + beneprotein 1 scoop per feed 300ml per feed over 60 minutes, 3 times daily each feed followed by 150 ml water flush and extra water flush of 150 ml at 2000 daily, usually gets probiotics with GT feeds at home, but being held right now since she is on VSL) -Holding home probiotics b/c on VSL - continue calcium carbonate QID b/c on admit had hypocalcemia - continue Prilosec - attempt to wean from continuous CPAP today (baseline is RA during day, home CPAP 7, 21% NOC. Currently requiring CPAP machine throughout the day for comfort and respiratory support) - continue half of home baclofen - not currently on Topamax - renal dosing of Keppra at this time - If seizures worsen, > 2 seizures per day and seizures > 60 seconds, inform labor relations supervisor pediatric neurology. May consider clonazepam 0.5 TID PRN Assessment & Plan (05/05/2017 3:12 PM INSPECTOR PENETRANT): Assessment: Donna Herring is a 16 year old female with a history of spastic CP, static encephalopathy, epilepsy who was admitted to the PICU following a prolonged seizure occurring at home (lasting 6-7 minutes) and was found to be bradycardic, hypotensive, and hypothermic at the OSH likely secondary to urosepsis. Urine cultures drawn at OSH as well as in CG upon admission were significant for growth of Enterococcus avium for which she was initially being treated with Vancomycin however transitioned to Ampicillin on 04/29 after sensitivities were resulted. She continues to improve clinically and labs depict resolving NILSON. RENAL: While admitted Donna has had NILSON; nephrology currently following. Does not need acute dialysis at this time. - Per nephrology recommendations: - 1L NS bolus as a fluid challenge given the high Na. - increase fluid restriction from 1500 mL to 2000 mL - C3 and C4 WNL. - RFP daily (decreased from q12 to decrease blood loss) /ID: Hx of UTISx 3 /6mo, cathed BID baseline, followed by . ROBERTO + for perinephric fluid stranding that could be consistent with pyelonephritis. - recs: VCUG when negative UCx, else f/u for VCUG. -Bladder scans Q4 hours. Straight catheterization if PVR is greater than 200 ml or no urine output in 8+ hours per urology to reduce risk of infection. - 05/05 Day 7 of 7-10 (started 04/29) - Ampicillin -05/05 - Day 4 of Clindamycin (for R aspiration pneumonia) FEN: - Feeding challenge today: - fluids (2L) split between Pedialyte and IV fluids (run continuous) - 40 mL/hr Pedialyte - 43 mL/hr IVF - if tolerates well increase fluids to full Pedialyte and d/c IV fluids - holding home GT feeds: (Jevity 1.0 160 ml + water 140ml + beneprotein 1 scoop per feed 300ml per feed over 60 minutes, 3 times daily each feed followed by 150 ml water flush and extra water flush of 150 ml at 2000 daily, usually gets probiotics with GT feeds at home, but being held right now since she is on VSL) -zofran 4 mg PRN b/c acute onset emesis w/ risk of aspiration -Holding home probiotics b/c on VSL -On calcium carbonate QID b/c on admit had hypocalcemia -On home Prilosec CV: currently stable - VS q4 per TCU protocol - if patient becomes hypotensive will consider contacting PICU for assessment RESP: baseline is RA during day, home CPAP 7, 21% NOC. Currently requiring CPAP machine throughout the day for comfort and respiratory support -maintain CPAP mask as needed - wean as tolerated NEURO -On half of home baclofen -not currently on Topamax -Renal dosing of Keppra at this time -If seizures worsen, > 2 seizures per day and seizures > 60 seconds, inform labor relations supervisor pediatric neurology. May consider clonazepam 0.5 TID PRN HEME: Most recent Hgb was 8.4 which has been slowly trending down. Most likely etiology is secondary to illness. - Currently monitor levels at this time Assessment & Plan (05/05/2017 12:44 PM INSPECTOR PENETRANT): Assessment: Donna Herring is a 16 year old female with a history of spastic CP, static encephalopathy, epilepsy who was admitted to the PICU following a prolonged seizure occurring at home (lasting 6-7 minutes) and was found to be bradycardic, hypotensive, and hypothermic at the OSH likely secondary to urosepsis. Urine cultures drawn at OSH as well as in CG upon admission were significant for growth of Enterococcus avium for which she was initially being treated with Vancomycin however transitioned to Ampicillin on 04/29 after sensitivities were resulted. She continues to improve clinically and labs depict resolving NILSON. RENAL: While admitted Donna has had NILSON; nephrology currently following. Does not need acute dialysis at this time. - Per nephrology recommendations: - 1L NS bolus - increase fluid restriction from 1500 mL to 2000 mL - C3 and C4 WNL. - RFP daily (decreased from q12 to decrease blood loss) /ID: Hx of UTISx 3 /6mo, cathed BID baseline, followed by . ROBERTO + for perinephric fluid stranding that could be consistent with pyelonephritis. - recs: VCUG when negative UCx, else f/u for VCUG. -Bladder scans Q4 hours. Straight catheterization if PVR is greater than 200 ml or no urine output in 8+ hours per urology to reduce risk of infection. - 05/05 Day 7 of 7-10 (started 04/29) - Ampicillin -05/05 - Day 4 of Clindamycin (for R aspiration pneumonia) FEN: - Feeding challenge today: - fluids (2L) split between Pedialyte and IV fluids (run continuous) - 40 mL/hr Pedialyte - 43 mL/hr IVF - if tolerates well increase fluids to full Pedialyte and d/c IV fluids - holding home GT feeds: (Jevity 1.0 160 ml + water 140ml + beneprotein 1 scoop per feed 300ml per feed over 60 minutes, 3 times daily each feed followed by 150 ml water flush and extra water flush of 150 ml at 2000 daily, usually gets probiotics with GT feeds at home, but being held right now since she is on VSL) -zofran 4 mg PRN b/c acute onset emesis w/ risk of aspiration -Holding home probiotics b/c on VSL -On calcium carbonate QID b/c on admit had hypocalcemia -On home Prilosec CV: currently stable - VS q4 per TCU protocol - if patient becomes hypotensive will consider contacting PICU for assessment RESP: baseline is RA during day, home CPAP 7, 21% NOC. Currently requiring CPAP machine throughout the day for comfort and respiratory support -maintain CPAP mask as needed - wean as tolerated NEURO -On half of home baclofen -not currently on Topamax -Renal dosing of Keppra at this time -If seizures worsen, > 2 seizures per day and seizures > 60 seconds, inform labor relations supervisor pediatric neurology. May consider clonazepam 0.5 TID PRN HEME: Most recent Hgb was 8.4 which has been slowly trending down. Most likely etiology is secondary to illness. - Currently monitor levels at this time Assessment & Plan (05/04/2017 5:07 PM INSPECTOR PENETRANT): Assessment: Donna Herring is a 16 year old female with a history of spastic CP, static encephalopathy, epilepsy who was admitted to the PICU following a prolonged seizure occurring at home (lasting 6-7 minutes) and was found to be bradycardic, hypotensive, and hypothermic at the OSH likely secondary to urosepsis. Urine cultures drawn at OSH as well as in CG upon admission were significant for growth of Enterococcus avium for which she was initially being treated with Vancomycin however transitioned to Ampicillin on 04/29 after sensitivities were resulted. She has improved clinically and is more stable now, deemed stable for transfer to general floor status. RENAL: While admitted Donna has had NILSON; nephrology currently following. Does not need acute dialysis at this time. -per nephrology, RFP, C3, C4 pending. -Repeat RFP in the AM /ID: Hx of UTISx 3 /6mo, cathed BID baseline, followed by . ROBERTO + for perinephric fluid stranding that could be consistent with pyelonephritis. - recs: VCUG when negative UCx, else f/u for VCUG. -Bladder scans Q4 hours. Straight catheterization if PVR is greater than 200 ml or no urine output in 8+ hours per urology to reduce risk of infection. -05/04 Day 6 of 7-10 (started 04/29) FEN: -NPO, on IV fluids. Holding home G tube feedson home GT feeds, (If restarting: Jevity 1.0 160 ml + water 140ml + beneprotein 1 scoop per feed 300ml per feed over 60 minutes, 3 times daily each feed followed by 150 ml water flush and extra water flush of 150 ml at 2000 daily, usually gets probiotics with GT feeds at home, but being held right now since she is on VSL) - consider starting Pedialyte tomorrow -on scheduled zofran 4 mg q6h b/c acute onset emesis w/ risk of aspiration -Holding home probiotics b/c on VSL -On calcium carbonate QID b/c on admit had hypocalcemia -On home Prilosec CV: currently stable - VS q4 per TCU protocol - if patient becomes hypotensive will consider contacting PICU for assessment RESP: baseline is RA during day, home CPAP 7, 21% NOC. Currently requiring CPAP machine throughout the day for comfort and respiratory support -maintain CPAP mask as needed - wean as tolerated NEURO -On half of home baclofen -not currently on Topamax -Renal dosing of Keppra at this time -If seizures worsen, > 2 seizures per day and seizures > 60 seconds, inform labor relations supervisor pediatric neurology. May consider clonazepam 0.5 TID PRN Assessment & Plan (05/04/2017 11:34 AM INSPECTOR PENETRANT): Assessment: Donna Herring is a 16 year old female with a history of spastic CP, static encephalopathy, epilepsy who was admitted to the PICU following a prolonged seizure occurring at home (lasting 6-7 minutes) and was found to be bradycardic, hypotensive, and hypothermic at the OSH likely secondary to Enterococcus avium urosepsis. She was initially treated with vancomycin until UCX results were available and was later appropriately switched to ampicillin. She developed NILSON likely 2/2 to vancomycin with highest Cr 2.72 on 05/01; unlikely autoimmune nephritis and atypical HUS due to work up results. Also, developed emesis with tube feeds, oxygen requirement and hypothermia, so she was transferred back to the PICU for potential renal failure and respiratory distress. Upon transfer back to the PICU, NILSON has been treated with fluid restriction and intermittent lasix doses; all meds were renally adjusted and Keppra (resumed on 05/03 for decreased keppra level 9.11 on 05/02) and Topamax were held while Klonipin was scheduled. BUN and Cr have been downtrending. Clindamycin was started due to concerns for R aspiration PNA on 05/02, and continues to require minimal oxygen supplementation. Plan: Transfer back to [facility] team - Dr. Tsang FEN/GI/Renal: - NPO - fluid restriction 1500ml/day per nephrology - D5 1/2NS 62.5ml/hr - HELD: Home GT feeds: Jevity 1.0 160 ml + water 140ml + beneprotein 1 scoop per feed - 300ml per feed over 60 minutes, 3 times daily - each feed followed by 150 ml water flush and extra water flush of 150 ml at 2000 daily - usually gets probiotics with GT feeds at home, but being held right now since she is on VSL - strict I/O; goal net fluid status even - straight cath if bladder scan demonstrates >200ml urine; bladder scan q4 - calcium carbonate 500mg QID for hypocalcemia - home prilosec - miralax 1/2 cap QD mixed with GT feeds - trend BUN/Cr CV/RESP: - home CPAP7 nightly/while asleep with 2L oxygen supplementation - wean oxygen as tolerated - vest q4 - VS q4 - pulse ox - suction PRN ID: - ampicillin 500mg IV q6 - clindamycin 600mg IV q8 - VSL Urology: - urology consulted initially for straight cath recommendations Neuro: - baclofen - keppra restarted on 05/03 at renally adjusted dose 500mg q12 - held home meds: topamax, robinol - Neurology consulted. If has seizures more than twice a day and duration is >60 sec, give Klonipin 0.5mg TID PRN and call neurology - tylenol for fever/discomfort Assessment & Plan (04/30/2017 6:13 PM INSPECTOR PENETRANT): Assessment: Donna Herring is a 16 year old female with a history of spastic CP, static encephalopathy, epilepsy who was admitted to the PICU following a prolonged seizure occurring at home (lasting 6-7 minutes) and was found to be bradycardic, hypotensive, and hypothermic at the OSH likely secondary to urosepsis. Urine cultures drawn at OSH as well as in CG upon admission were significant for growth of Enterococcus avium for which she was initially being treated with Vancomycin however transitioned to Ampicillin on 04/29 after sensitivities were resulted. 04/30 NILSON was noted on labs and she was hypothermic so she was transferred back to the PICU. RENAL: NILSON, may need dialysis -per nephrology, RFP, C3, C4 pending. -perform fluid challenge. Give 500 mL bolus NS, monitor UOP and response, observe creatinine tomorrow. If no response in UOP, cut to 80% maintenance. -Repeat RFP in the AM, may require dialysis if no improvement along with kidney biopsy. -contact renal with any questions. /ID: hx UTISx 3 /6mo, cathed BID baseline, followed by GI. ROBERTO + for perinephric fluid stranding that could be consistent with pyelonephritis. - recs: VCUG when negative UCx, else f/u for VCUG. -Bladder scans Q4 hours. Straight catheterization if PVR is greater than 200 ml or no urine output in 8+ hours per urology to reduce risk of infection. -On ampicillin day 2/-10 (started 04/29) FEN: -NPO, on IV fluids. Holding home G tube feedson home GT feeds, (If restarting: Jevity 1.0 160 ml + water 140ml + beneprotein 1 scoop per feed 300ml per feed over 60 minutes, 3 times daily each feed followed by 150 ml water flush and extra water flush of 150 ml at 2000 daily, usually gets probiotics with GT feeds at home, but being held right now since she is on VSL) -on scheduled zofran 4 mg q6h b/c acute onset emesis w/ risk of aspiration -Holding home probiotics b/c on VSL -On calcium carbonate QID b/c on admit had hypocalcemia -On home Prilosec CV: persistent bradycardia and hypothermia off of pressors. -will transfer to PICU RESP: baseline is RA during day, home CPAP 7, 21% NOC -On home CPAP at night -additionally requiring 6 L simple mask NEURO -On half of home baclofen, Topamax doses. -Holding keppra based on keppra level > 100. Will need repeat keppra dose tomorrow to prevent seizures. -On home robinol -If seizures worsen, > 2 seizures per day and seizures > 60 seconds, inform labor relations supervisor pediatric neurology. May consider clonazepam 0.5 TID PRN Assessment & Plan (04/30/2017 3:12 PM INSPECTOR PENETRANT): Assessment: Donna Herring is a 16 year old female with a history of spastic CP, static encephalopathy, epilepsy who was admitted to the PICU following a prolonged seizure occurring at home (lasting 6-7 minutes) and was found to be bradycardic, hypotensive, and hypothermic at the OSH likely secondary to urosepsis. Urine cultures drawn at OSH as well as in CG upon admission were significant for growth of Enterococcus avium for which she was initially being treated with Vancomycin however transitioned to Ampicillin today after sensitivities were resulted. FEN/GI: Holding Home GT feeds: Jevity 1.0 160 ml + water 140ml + beneprotein 1 scoop per feed - 300ml per feed over 60 minutes, 3 times daily - each feed followed by 150 ml water flush and extra water flush of 150 ml at 2000 daily - usually gets probiotics with GT feeds at home, but being held right now since she is on VSL - strict I/O - straight cath up to BID depending on how much she voids on her own; please see urology recommendations to follow - bladder scan as needed - calcium carbonate 500mg QID for hypocalcemia - home prilosec - miralax 1/2 cap QD mixed with GT feeds - trend BUN/Cr CV/RESP: - VS q4 - pulse ox - home CPAP7 nightly/while asleep ID: - ampicillin 500mg IV q6 - monitor fever trend- - ID consulted and following - Follow [facility] Urology: - urology consulted. Follow recommendations - kidney and bladder US normal today Neuro: - continue home meds: baclofen, robinol, keppra, topamax. Holding off on topamax increase at this time due to concern for acute onset emesis from likely increased levels of seizure medications 2/2 renal dysfunction - Neurology consulted. If has seizures more than twice a day and duration is >60 sec, give Klonipin 0.5mg TID PRN and call neurology - tylenol for fever Assessment & Plan (04/30/2017 4:45 AM INSPECTOR PENETRANT): Assessment: Donna Herring is a 16 year old female with a history of spastic CP, static encephalopathy, epilepsy who was admitted to the PICU following a prolonged seizure occurring at home (lasting 6-7 minutes) and was found to be bradycardic, hypotensive, and hypothermic at the OSH likely secondary to urosepsis. Urine cultures drawn at OSH as well as in CG upon admission were significant for growth of Enterococcus avium for which she was initially being treated with Vancomycin however transitioned to Ampicillin today after sensitivities were resulted. Plan: -Transfer to [facility] team - Dr. Tsang FEN/GI: - Home GT feeds: Jevity 1.0 160 ml + water 140ml + beneprotein 1 scoop per feed - 300ml per feed over 60 minutes, 3 times daily - each feed followed by 150 ml water flush and extra water flush of 150 ml at 2000 daily - usually gets probiotics with GT feeds at home, but being held right now since she is on VSL - strict I/O - straight cath up to BID depending on how much she voids on her own; please see urology recommendations to follow - bladder scan as needed - calcium carbonate 500mg QID for hypocalcemia - home prilosec - miralax 1/2 cap QD mixed with GT feeds - trend BUN/Cr CV/RESP: - VS q4 - pulse ox - home CPAP7 nightly/while asleep ID: - ampicillin 500mg IV q6 - monitor fever trend- - ID consulted and following - Follow [facility]: - urology consulted. Follow recommendations - kidney and bladder US normal today Neuro: - continue home meds: baclofen, robinol, keppra, topamax - Neurology consulted. If has seizures more than twice a day and duration is >60 sec, give Klonipin 0.5mg TID PRN and call neurology - tylenol for fever Assessment & Plan (04/29/2017 5:34 PM INSPECTOR PENETRANT): Assessment: Donna Herring is a 16 year old female with a history of spastic CP, static encephalopathy, epilepsy who was admitted to the PICU following a prolonged seizure occurring at home (lasting 6-7 minutes) and was found to be bradycardic, hypotensive, and hypothermic at the OSH likely secondary to urosepsis. Urine cultures drawn at OSH as well as in CG upon admission were significant for growth of Enterococcus avium for which she was initially being treated with Vancomycin however transitioned to Ampicillin today after sensitivities were resulted. Plan: Transfer to [facility] team - Dr. Tsang FEN/GI: - Home GT feeds: Jevity 1.0 160 ml + water 140ml + beneprotein 1 scoop per feed - 300ml per feed over 60 minutes, 3 times daily - each feed followed by 150 ml water flush and extra water flush of 150 ml at 2000 daily - usually gets probiotics with GT feeds at home, but being held right now since she is on VSL - strict I/O - straight cath up to BID depending on how much she voids on her own; please see urology recommendations to follow - bladder scan as needed - calcium carbonate 500mg QID for hypocalcemia - home prilosec - miralax 1/2 cap QD mixed with GT feeds - trend BUN/Cr CV/RESP: - VS q4 - pulse ox - home CPAP7 nightly/while asleep ID: - ampicillin 500mg IV q6 - monitor fever trend- - ID consulted and following - Follow [facility]: - urology consulted. Follow recommendations - kidney and bladder US normal today Neuro: - continue home meds: baclofen, robinol, keppra, topamax - Neurology consulted. If has seizures more than twice a day and duration is >60 sec, give Klonipin 0.5mg TID PRN and call neurology - tylenol for fever Ingrown toenail, bilateral great toes 11/11/2016 07/20/2017 Post-operative state 11/11/2016 018 Skin problem 10/15/2016 07/20/2017 Fungal nail infection 10/08/20162017 Acidosis, hyperchloremic 03/08/2016 Total self-care deficit 10/31/2015 05/0 10/2020 Influenza B 07/14/2014 07/19/2017 Assessment & Plan (07/16/2014 11:31 AM CDT): Assessment: 13yo girl who is G-tube dependent with h/o CP who presents with emesis of one day duration prior to admission who was found to be influenza B positive. One time desaturation 07/14 with no apparent distress, reassuring CXR and cap blood gas. Did well on RA and nightly CPAP on 07/15 and overnight. Reported seizure like activity does not warrant additional workup at this time (no tongue biting, bowel/bladder incontinence, unable to assess postictal confusion, no LOC). Plan: - Cont Tamiflu x5 days (started 07/14) - Cont to observe respiratory status - Cont feeds per G-button - Zofran PRN Assessment & Plan (07/15/2014 11:51 AM CDT): Assessment: 13yo girl who is G-tube dependent with h/o CP who presents with emesis of one day duration prior to admission who was found to be influenza B positive. One time desaturation 07/14 with no apparent distress, reassuring CXR and cap blood gas. Plan: - Cont Tamiflu x5 days - Will observe respiratory status closely given need for supplemental O2 on 07/14 - Cont feeds per G-button - Zofran PRN Assessment & Plan (07/14/2014 6:53 AM CDT): Assessment: 13yo girl who is G-tube dependent with h/o CP who presents with emesis of one day duration prior to admission who was found to be influenza B positive. Tamiflu started. Plan: - Cont Tamiflu x5 days - Cont feeds per G-button - Discontinue MIVF as pt tolerating feeds well without emesis - Zofran PRN Vomiting 07/13/2014 07/18/2017 Assessment & Plan (07/13/2014 11:30 AM CDT): Assessment: One day of NBNB emesis. Febrile morning of 07/13. No diarrhea. Likely ileus, also could be of viral etiology. UTI possible with 10-15 WBC in her urine but no nitrates and no fever. Will hold off treatment and follow the urine culture. Plan: - NPO - MIVF - Pedialyte per G-button, will monitor for persistent vomiting - Zofran PRN - Follow up UCx Assessment & Plan (07/13/2014 1:11 AM CDT): Assessment: One day of NBNB emesis. No fever. No diarrhea. Likely ileus, also could be of viral etiology. UTI possible with 10-15 WBC in her urine but no nitrates and no fever. Will hold off treatment and follow the urine culture. Plan: - Admit to general medicine - NPO - IVF at 100 mL/hr - Zofran PRN - Follow up urine culture Tremor 10/26/2013 08/12/2020 Assessment & Plan (10/28/2013 2:46 PM CDT): Assessment: Patient with baseline epilepsy (currently on diazepam, topamax, zonisamide) and followed by Neurology. Mom reports increase in right upper extremity tremors. 10/26 EEG with no seizure activity noted. Plan: MRI C-spine normal Neurology following, appreciate recommendations Assessment & Plan (10/27/2013 5:45 PM CDT): Assessment: Patient with baseline epilepsy (currently on diazepam, topamax, zonisamide) and followed by Neurology. Mom reports increase in right upper extremity tremors. 10/26 EEG with no seizure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 Not Reported NN = See Therapy Comments THERAPY COMMENTS Note 1: For uncomplicated UTI caused by E. coli, K. pneumoniae or P. mirabilis: Cefazolin is susceptible if GEORGINA <32 mcg/mL and predicts susceptible to the oral agents cefaclor, cefdinir, cefpodoxime, cefprozil, cefuroxime, cephalexin and loracarbef. Test Performed at: [facility] [employer] [address] SHAKIRA MONSALVE MD Urine URINE SPECIMEN OBTAINED BY SINGLE CATHETERIZATION OF URINARY BLADDER / Unknown 01/19/2025 1:00 PM CDT 01/20/2025 12:21 AM CDT us David Le LAB - MICROBIOLOGY ORDERABLES Fi nal Result [address] [address] * (ABNORMAL) URINALYSIS W/MICROSCOPIC NO CULTURE (01/01/2025 2:37 PM CDT) Color UA Yellow Yellow, Straw 01/01/2025 3:25 PM CDT [facility] Clarity UA Turbid(A) Clear 01/01/2025 3:25 PM [facility] Glucose UA Normal Normal 01/01/2025 3:25 PM [facility] Bilirubin UA Negative Negative 01/01/2025 3:25 PM T [facility] Ketone UA Negative Negative 01/01/2025 3:25 PM [facility] Specific [place] UA 1.005 1.005 - 1.030 01/01/2025 3:25 PM [facility] Blood UA Negative Negative 01/01/2025 3:25 PM [facility] pH UA 6.5 5.0 - 8.0 01/01/2025 3:25 PM [facility] Protein UA 1+(A) Negative 01/01/2025 3:25 PM [facility] Urobilinogen UA Normal Normal mg/dL 01/01/2025 3:25 PM [facility] Nitrite UA Positive(A) Negative 01/01/2025 3:25 PM [facility] Leukocyte Esterase UA 500 BLANKA/uL(A) Negative 01/01/2025 3:25 PM CDT [facility] RBC UA 3-5 0 - 5 # /hpf 01/01/2025 3:25 PM CDT [facility] WBC UA 21-50(A) 0 - 5 # /hpf 01/01/2025 3:25 PM CDT [facility] Bacteria UA 3+(A) None Seen 01/01/2025 3:25 PM CDT [facility] Squamous Epithelial Cells 0-2 0 - 5 /hpf 01/01/2025 3:25 PM CDT [facility] Mucus UA 1+ /LPF 01/01/2025 3:25 PM CDT [facility] Urine SUPRAPUBIC URINE SPECIMEN / Unknown Collection / Unknown 01/01/2025 2:37 PM CDT 01/01/2025 2:49 PM CDT us Dipesh Agudelo MD LAB - URINALYSIS ORDERABLES F inal Result [facility] [address] [place] [id number], [facility] [phone] * HEPATITIS SCREEN ACUTE (05/16/2021 11:03 AM INSPECTOR PENETRANT) Hepatitis A Virus Antibody IgM NON-REACTI VE NON-REACT JIL [facility] Comment: For additional information, please refer to http://[email or web address]/AFB569 (This link is being provided for informational/ educational purposes only.) Hepatitis B Virus Surface Antigen NON-REACTI VE NON-REACT JIL [facility] Hepatitis B Core Virus Antibody IgM NON-REACTI VE NON-REACT JIL [facility] Hepatitis C Antibody NON-REACTI VE NON-REACT JIL [facility] Signal to Cut-Off 0.10 <1.00 [facility] Comment: HCV antibody was non-reactive. There is no laboratory evidence of HCV infection. In most cases, no further action is required. However, if recent HCV exposure is suspected, a test for HCV RNA (test code 68778) is suggested. 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 Comment:01/07/23 05/21/2023 05/21/2023 Insurance MEDICAID - OUT OF STATE [place]ID [place] [facility] [place] MEDICAID - OUT [facility] MEDICAID - [place] Advance Directives Documents on File Type Date Recorded Patient Aquatics Assistant Department Head Expl anation Code Status/Resuscitation 08/23/2023 9:05 PM Code Status/Resuscitation 09/11/2022 10:53 PM * DNR - IF PULSELESS NO CPR, NO SHOCK (Latest Code Status on File) Date Activated Date Inactivated Comments 08/08/2024 5:35 PM 08/13/2024 10:41 AM Question Answer Comments : DO NOT discontinue a ny active orders without asking attending physician. * DNR - IF PULSELESS NO CPR, NO SHOCK Date Activated Date Inactivated Comments 07/29/2024 9:16 PM 08/06/2024 8:43 PM Question Answer Comments : DO NOT discontinue a ri active orders without asking attending physician. * Full Code Date Activated Date Inactivated Comments 07/29/2024 8:16 PM 07/29/2024 9:16 PM * PED LIMITED CODE (SPECIFY) Date Activated Date Inactivated Comments 08/04/2023 12:38 PM 08/06/2023 3:22 PM DNR/DNI wit h nothing beyond her CPAP and additional O2 support. No BiPAP. No chest compressions, defibrillation, or cardiac meds among other limitations to her code status. * PED LIMITED CODE (SPECIFY) Date Activated Date Inactivated Comments 07/10/2023 1:41 PM 07/14/2023 4:50 PM No intubation, no escalation to BIPAP. No chest compressions, no vasopressors, no emergency cardiac drugs. Parents agreeable to fluid resuscitation for hypotension, can give one bolus- contact parents before second bolus. Can give bagged breaths for limited time, but if no improvement then stop. Care Teams Applications Systems Analyst Relationship Specialty Start Date End Date Juanita Mojica [address] [facility] [address] [facility] [place] [address] PCP - General Pediatrics 07/06/24 Gina Alvarado MD [address] [place] [id number] Pediatric Gastroenterology 04/13/19 Michelle Nolan MD [address] [place] [id number] Orthopedic Surgery 05/26/19 Michelle Nolan MD [address] [place] [id number] Orthopedic Surgery 02/03/20 David Olson PA [address] [place] [address] Physician Demonstrator Sales Urology 05/07/24 Ann Valderrama DO [address] [place] [address] Physician Hospice and Palliative Care 05/27/24
[2025-02-17 20:18] LABS: Add Urine Microscopic? NO; Appearance Urine Clear (Clear); Glucose Urine UA Negative (Negative); Leukocyte Esterase Ur Negative LEU/UL (Negative); Nitrate Urine Negative (Negative); Specific Grav Ur 1.008 (1.001-1.035)
== END 2025-02-17 10:20 | disposition home or self-care (01) ==
PROVIDERS: PCP Nurse Practitioner; Visit Provider Pediatrics
DX: G80.0 Spastic quadriplegic cerebral palsy (principal)
CPT/HCPCS: 81003; 87086; 87186